=== PATIENT | female | born 1950 | race Caucasian/White ===

== ENCOUNTER 2021-12-21 16:59 | Inpatient (IN) | payer MEDICARE, OTHER ==
[~2021-12-21] VITALS: Ht 162.6 cm; Wt 74.4 kg
[2021-12-21] MEDS: HEPARIN SODIUM, PORCINE 5000 UNITS/1 ML VIAL SQ SCH (01:33)
[2021-12-21] MEDS ORDERED: LISI20TA30 PO (17:39)
[2021-12-21] MEDS ORDERED: ATOR80TA PO (17:39)
[2021-12-21] MEDS ORDERED: ASPI-1169 PO (17:39)
[2021-12-21] MEDS ORDERED: DIVA-78 PO ×2 (17:39)
[2021-12-21] MEDS ORDERED: EZET10TA15 PO (17:39)
[2021-12-21] MEDS ORDERED: DILT-4 PO (17:39)
[2021-12-21] MEDS ORDERED: QUET50TA PO (17:39)
[2021-12-21] MEDS ORDERED: ERGO500040 PO (17:39)
--- NOTE | 2021-12-21 17:43 | NUR ---
COVID SWAB DONE AND SENT TO LAB
[2021-12-21 17:45] LABS: BASOPHILS % (AUTO) 0.2 % (0.0-2.0); HEMATOCRIT 44 % (33-45); HEMOGLOBIN 14.4 g/dL (11.5-14.8); LYMPHOCYTES # (AUTO) 0.9 K/uL (0.8-4.8); LYMPHOCYTES % (AUTO) 5.3 % (20.0-44.0); MEAN CORPUSCULAR HGB CONC 33 g/dl (31.0-36.0); MEAN CORPUSCULAR VOLUME 96 fL (82-100); MONOCYTES # (AUTO) 0.5 K/uL (0.1-1.30); NEUTROPHILS # (AUTO) 16.3 K/uL (1.8-8.9); NEUTROPHILS % (AUTO) 91.5 % (43.0-81.0); PLATELET COUNT (AUTO) 302 K/uL (150-450); RED BLOOD CELL COUNT(AUTO) 4.59 MIL/uL (4.0-5.2); WHITE BLOOD COUNT (AUTO) 17.8 K/uL (4.3-11.0)
[2021-12-21 18:04] LABS: CALCIUM, SERUM 9.7 mg/dL (8.5-10.1); CARBON DIOXIDE 19 mmol/L (21-32); GLUCOSE 280 mg/dL (74-106); POTASSIUM 5.3 mmol/L (3.5-5.1); SODIUM SERUM 131 mmol/L (136-145)
[2021-12-21 18:06] LABS: CHLORIDE 77 mmol/L (98-107); CREATININE 16.7 mg/dL (0.6-1.3); UREA NITROGEN, BLOOD 129 mg/dL (7-18)
[2021-12-21 18:11] LABS: ALANINE AMINOTRANSFERASE 22 U/L (12-78); ALBUMIN 4.6 g/dL (3.4-5.0); ALCOHOL, BLOOD < 3 mg/dL (0-0); ALKALINE PHOSPHATASE 85 U/L (46-116); ASPARTATE AMINOTRANSFERASE 28 U/L (15-37); BILIRUBIN,DIRECT 0.3 mg/dL (0.0-0.2); TOTAL PROTEIN, SERUM 10.2 g/dL (6.4-8.2)
--- NOTE | 2021-12-21 19:09 | NUR ---
IN AND OUT F/C INSERTED, NO URINE OUTPUT. ALSO DR DE GUZMAN MADE AWARE OF BUN/ CREA RESULT.
[2021-12-21] MEDS ORDERED: IV NS 0.9% 1,000 ML BAG IV ONE ×2 (19:30→21:00)
[2021-12-21] MEDS ORDERED: CEFTRIAXONE 1GM BAG (ER ONLY) 50 ML IV ONE ×2 (19:30)
--- NOTE | 2021-12-21 19:40 | NUR ---
RIVAS COLLECTED AND SENT TO LAB
--- NOTE | 2021-12-21 21:22 | NUR ---
IN AND OUT CATHETER INSERTED WITH NO URINE OUTPUT.
--- NOTE | 2021-12-21 22:47 | NUR ---
GEOFFREY HENDRICKSON, CALLED TO PAGE PROBATE JUDGE COPPER PLATER FOR CONSULT. INSERT INDWELLING CATH, SHE IS AWARE THAT THE PATIENT HAS NO URINE OUTPUT.
--- NOTE | 2021-12-21 22:50 | NUR ---
DECLAN INDUSTRIAL MECHANIC PAGED FOR CONSULT. WILL CALL BACK
[2021-12-22] VITALS (64 sets, daily range): BP systolic 46–144; BP diastolic 30–89
[2021-12-22] MEDS ORDERED: HEPARIN SODIUM, PORCINE 5000 UNITS/1 ML VIAL ONE (01:28)
--- NOTE | 2021-12-22 01:35 | NUR ---
Note dayami in ED - 12/22/21 at 0141 by KDABBAGABRAHAMA PT NOTED WITH ASSYMTOMATIC HTPOTENSION. GEOFFREY BURLESON BUS REPAIR SUPERVISOR NOTIFIED AND ORDERS RECIEVED.
--- NOTE | 2021-12-22 01:35 | NUR ---
PT NOTED WITH ASYMTOMATIC HTPOTENSION. GEOFFREY BURLESON RAILROAD CAR PAINTER NOTIFIED AND ORDERS RECIEVED.
--- NOTE | 2021-12-22 01:46 | NUR ---
phleb at bedside for blood draw
[2021-12-22] MEDS ORDERED: IV NS 0.9% 1,000 ML IV PRN (02:00)
[2021-12-22] MEDS ORDERED: IV NS 0.9% 1,000 ML IV ONE ×3 (02:00→13:00)
[2021-12-22] MEDS ORDERED: ONDANSETRON HCL/PF 4 MG/2 ML VIAL IVP PRN (02:00)
--- NOTE | 2021-12-22 02:10 | NUR ---
ROOM 255
--- NOTE | 2021-12-22 02:27 | NUR ---
REPORT GIVEN TO MELVA
--- NOTE | 2021-12-22 02:52 | NUR ---
PT TRANSPORTED TO ROOM 255 ON CARDIAC PER ACLS
[2021-12-22 03:30] LABS: CARBON DIOXIDE 15 mmol/L (21-32); CHLORIDE 88 mmol/L (98-107); GLUCOSE 148 mg/dL (74-106); POTASSIUM 4.9 mmol/L (3.5-5.1); SODIUM SERUM 137 mmol/L (136-145)
[2021-12-22 03:46] LABS: UREA NITROGEN, BLOOD 128 mg/dL (7-18)
[2021-12-22 03:47] LABS: CREATININE 15.6 mg/dL (0.6-1.3)
--- NOTE | 2021-12-22 07:15 | NUR ---
CONVEX GRINDER OPERATOR NOTE RECEIVED PATIENT IN BED RESTING ALERT ORIENTED X2 VERNALLY RESPONSIVE ON 10L OXYGEN MASK O2:90% IV SITE IS ON LEFT HAND AND RIGHT FOREARM INTACT PATENT ON IV HYDRATION NS 150CC/HR,VIGIL CATH IN PLACE NO URINE NOTED,SAFETY MEASURE IMPLEMENT BED IN LOW POSITION AND LOCKED,HEAD OF THE BED ELEVATED,CALL LIGHT WITHIN REACH CONTINUE TO MONITOR.
--- NOTE | 2021-12-22 08:35 | NUR ---
WOUND CARE CONSULT: PT PRESENTS WITH DISCOLORATION TO RT HIP AND LEFT BUTTOCK WELL EXTREMELY LONG CURLING TOENAILS AND DISCOLORATION OF FEET WITH CALLUSES, ALL PRESENT ON ADMISSION. DR GAINES CALLED FOR DPM CONSULT. RECOMMENDATIONS MADE FOR SKIN PROTECTION. DISCUSSED WITH NURSING STAFF. PT IS ON SHIN ISOFLEX LOW AIRLOSS BED. IN AGREEMENT WITH PLAN OF CARE. Addendum: 12/22/21 at 0840 by FEROZ ROBLES WNDNU PT IS UNCOOPERATIVE AT TIMES.
[2021-12-22] MEDS: EZETIMIBE 10 MG TABLET PO SCH (08:57)
[2021-12-22] MEDS: ASPIRIN 81 MG TAB.CHEW PO SCH (08:57)
[2021-12-22] MEDS: PANTOPRAZOLE 40 MG VIAL IV SCH (08:57)
[2021-12-22] MEDS: HEPARIN SODIUM, PORCINE 5000 UNITS/1 ML VIAL SQ SCH ×2 (08:59→21:13)
[2021-12-22] MEDS: DIVALPROEX SODIUM 500 MG TABLET.DR PO SCH ×3 (09:00→18:57)
[2021-12-22] MEDS: DILTIAZEM HCL CD 300 MG PO SCH (09:00)
[2021-12-22] MEDS: QUETIAPINE FUMARATE 25 MG TABLET PO SCH ×3 (09:00→17:00)
[2021-12-22] MEDS ORDERED: Z GUARD REMEDY 4 OZ OINT TP PRN (09:00)
[2021-12-22] MEDS ORDERED: LISINOPRIL (20MG) 20 MG TABLET PO SCH (09:00)
[2021-12-22] MEDS: NOREPINEPHRINE 32 MG in IV NS 0.9% 218 ML IV PRN (10:19)
--- NOTE | 2021-12-22 14:30 | NUR ---
RN NOTE DR BONILLA ORDERED DIALYSIS,CALLED RESPONSIBLE LIBERTARIAN BROTHER MICHAEL STRICKLAND GOT CONSENT FOR HEMODIALYSIS AND INSERTION OF DIALYSIS ACCESS,CONTINUE TO MONITOR.
--- NOTE | 2021-12-22 15:15 | NUR ---
RN NOTE REPORT GIVEN TO SCOTT DEL VALLE FOR CONTINUATION OF CARE
[2021-12-22 16:44] LABS: CREATININE 11.9 mg/dL (0.6-1.3)
[2021-12-22] MEDS: ALBUMIN 25% 25 GM in PREMIX 1 EA IV PRN (16:48)
--- NOTE | 2021-12-22 17:37 | NUR ---
SEROQUEL HELD DUE TO PATIENT UNDERGOING HEMODIALYSIS
--- NOTE | 2021-12-22 17:38 | NUR ---
NON ADMIN DEPAKOTE. DUPLICATE ORDER
--- NOTE | 2021-12-22 18:48 | NUR ---
RN CLOSING NOTES PATIENT REMAINS IN BED ON NASAL CANULA 5 LITERS WITH OXYGEN SATURATION IN THE LOW 90S. ALERT AND ORIENTED TIMES 3. VIGIL CATHETER DRAINING DARK URINE. SKIN ALTERATIONS NOTED IN CHART. IV ACCESS ON LEFT HAND 22 GAUGE, RIGHT ANTECUBITAL 20 GAUGE, RIGHT UPPER ARM MIDLINE 18 GAUGE AND RIGHT FEMORAL ACCESS FOR HEMODIALYSIS. MONA RUNNING LEVOPHED AND NORMAL SALINE AT 75 MLS/HR. SAFETY MEASURES IMPLEMENTED, CALL LIGHT WITHIN REACH, BED IN LOWEST LOCKED POSITION, SIDE RAILS UP TIMES 2. WILL ENDORSE TO NIGHTSHIFT RN FOR CONTINUATION OF CARE.
--- NOTE | 2021-12-22 20:00 | NUR ---
Received patient a/ox3.DX:ESTELA S/P HD 1L out.Patient follows simple commands.Able to verbalized needs. SR per monitor.With Levophed gtt infusing for BP support and will titrate accordingly.Respiration easy and unlabored with 5L NC.Saturation 94%-95%.Turned and repositioned.Safety and comfort implemented. Call light at bedside.
[2021-12-22] MEDS: CEFTRIAXONE 1 G in IV D5W 50 ML IV SCH (20:19)
[2021-12-22] MEDS: IV NS 0.9% 1,000 ML IV PRN (20:21)
[2021-12-22] MEDS: ATORVASTATIN 40 MG TABLET PO SCH (21:12)
[2021-12-22] MEDS: ACETAMINOPHEN 325 MG TABLET PO PRN (22:25)
[2021-12-23] VITALS (93 sets, daily range): BP systolic 62–141; BP diastolic 21–83
--- NOTE | 2021-12-23 | NUR ---
Patient moaning complaints of back pain.Pain medication administered with relief.Turned and repositioned.
[2021-12-23] MEDS: IV NS 0.9% 1,000 ML IV PRN ×2 (01:34→12:47)
[2021-12-23 04:44] LABS: BASOPHILS % (AUTO) 0.1 % (0.0-2.0); HEMATOCRIT 33 % (33-45); HEMOGLOBIN 10.6 g/dL (11.5-14.8); LYMPHOCYTES # (AUTO) 1.7 K/uL (0.8-4.8); LYMPHOCYTES % (AUTO) 12.4 % (20.0-44.0); MEAN CORPUSCULAR HGB CONC 33 g/dl (31.0-36.0); MEAN CORPUSCULAR VOLUME 98 fL (82-100); MONOCYTES % (AUTO) 7.3 % (2.0-12.0); NEUTROPHILS # (AUTO) 11.2 K/uL (1.8-8.9); NEUTROPHILS % (AUTO) 80.2 % (43.0-81.0); PLATELET COUNT (AUTO) 189 K/uL (150-450); RED BLOOD CELL COUNT(AUTO) 3.32 MIL/uL (4.0-5.2)
[2021-12-23 05:01] LABS: CARBON DIOXIDE 18 mmol/L (21-32); CHLORIDE 98 mmol/L (98-107); GLUCOSE 126 mg/dL (74-106); MAGNESIUM 1.8 mg/dL (1.8-2.4); PHOSPHORUS 6.4 mg/dL (2.5-4.9); POTASSIUM 3.9 mmol/L (3.5-5.1); SODIUM SERUM 135 mmol/L (136-145); UREA NITROGEN, BLOOD 76 mg/dL (7-18)
[2021-12-23 05:02] LABS: CREATININE 8.1 mg/dL (0.6-1.3)
[2021-12-23] MEDS: NOREPINEPHRINE 32 MG in IV NS 0.9% 218 ML IV PRN (05:55)
--- NOTE | 2021-12-23 06:25 | NUR ---
Patient resting.VSS remains stable.SR.Levophed gtt infusing titrated accordingly.AM care done. Safety precaution maintained.Call light at bedside.No acute distress noted.
--- NOTE | 2021-12-23 07:33 | NUR ---
ICU/RN PT RECEIVED IN BED, RESTING, AWAKES EASILY, A&OX3. PT ON 5L O2 NC WITH NO SIGNS OF LABORED BREATHING AT THIS TIME SAT 94% ON BEDSIDE MONITOR. SINUS RHYTHM ON MONITOR. VIGIL CATH IN PLACE. LEFT HAND 22G, RIGHT AC 20G AND RIGHT UA MIDLINE 18G IN PLACE RUNNING NS AT 75CC/HR AND LEVOPHED AT 0.4MCG/KG/MIN, BP 99/70. BED LOCKED AND IN LOWEST POSITION, CALL LIGHT WITHIN REACH, 3 SIDE RAILS UP.
[2021-12-23] MEDS: QUETIAPINE FUMARATE 25 MG TABLET PO SCH ×4 (08:05→17:00)
[2021-12-23] MEDS: ASPIRIN 81 MG TAB.CHEW PO SCH ×2 (08:05→08:59)
[2021-12-23] MEDS: DIVALPROEX SODIUM 250 MG TABLET.DR PO SCH ×2 (08:05→09:00)
[2021-12-23] MEDS: EZETIMIBE 10 MG TABLET PO SCH ×2 (08:05→09:00)
[2021-12-23] MEDS: PANTOPRAZOLE 40 MG VIAL IV SCH ×2 (08:05→08:59)
[2021-12-23] MEDS: HEPARIN SODIUM, PORCINE 5000 UNITS/1 ML VIAL SQ SCH ×3 (08:06→21:02)
[2021-12-23] MEDS: DILTIAZEM HCL CD 300 MG PO SCH (08:59)
--- NOTE | 2021-12-23 09:00 | NUR ---
ICU/RN PT REFUSED ALL MEDICATION THIS MORNING. PT EDUCATED ON THE IMPORTANCE OF EACH MEDICATION, PT VERBALIZES UNDERSTANDING, STILL REFUSES.
--- NOTE | 2021-12-23 09:30 | NUR ---
ICU/RN PT REFUSED TO BE TURNED AND REPOSITIONED. PT EDUCATED ON THE IMPORTANCE TO CHANGE POSITION. PT VERBALIZES UNDERSTANDING, CONTINUES TO REFUSE.
[2021-12-23] MEDS: ALBUMIN 25% 25 GM in PREMIX 1 EA IV PRN (10:46)
--- NOTE | 2021-12-23 12:12 | NUR ---
ICU/RN PT CONTINUES TO REFUSE BEING TURNED AND REPOSITIONED.
--- NOTE | 2021-12-23 12:19 | NUR ---
ICU/RN PT REFUSING SEROQUEL.
--- NOTE | 2021-12-23 12:19 | NUR ---
ICU/RN HD COMPLETED, PT TOLERATED WELL, 1,000ML REMOVED.
[2021-12-23] MEDS: DIVALPROEX SODIUM 500 MG TABLET.DR PO SCH ×2 (17:07→17:08)
[2021-12-23] MEDS: CLOTRIMAZOLE 1% 15 GM TUBE TP SCH (17:07)
--- NOTE | 2021-12-23 17:08 | NUR ---
ICU/RN PT CONTINUES TO REFUSE PO MEDICATION. PT EDUCATED, STATES THE MEDICATION "DOESN'T MAKE ME FEEL GOOD". PT AGREES ON IVF AND LEVOPHED DRIP AT THIS TIME. PT REFUSES BED LINEN CHANGES STATING IT HURTS HER BACK TO MOVE. PT OFFERED PAIN MEDICATION, PT REFUSED.
--- NOTE | 2021-12-23 20:00 | NUR ---
Received patient awake in no acute distress.A/OX3.Breathing even and unlabored with O2 5LNC.SR 60'S-70'S.Levophed gtt infusing for BP support.Patient denies pain or any discomfort.Turned and repositioned.Call light at bedside.FC to gravity.
[2021-12-23] MEDS: CEFTRIAXONE 1 G in IV D5W 50 ML IV SCH (20:09)
[2021-12-23] MEDS: ATORVASTATIN 40 MG TABLET PO SCH (21:02)
[2021-12-24] VITALS (102 sets, daily range): BP systolic 57–134; BP diastolic 21–84
[2021-12-24] MEDS: IV NS 0.9% 1,000 ML IV PRN ×2 (03:33→15:38)
[2021-12-24] MEDS: NOREPINEPHRINE 32 MG in IV NS 0.9% 218 ML IV PRN (03:37)
--- NOTE | 2021-12-24 06:25 | NUR ---
Patient resting .VSS.Levophed gtt titrated down to 0.2 mcg.Patient refused Lab draw for this morning.She is fighting.AM care done and complete linens changed.Turned and repositioned.
--- NOTE | 2021-12-24 07:48 | NUR ---
ICU/RN PT REFUSED AM LAB ON PROJECT ACCOUNT MANAGER. PT TALKED WITH BROTHER MICHAEL. PT NOW AGREES TO HAVE LAB DRAWN. LAB NOTIFIED.
[2021-12-24] MEDS: QUETIAPINE FUMARATE 25 MG TABLET PO SCH ×3 (08:00→16:32)
[2021-12-24] MEDS: CLOTRIMAZOLE 1% 15 GM TUBE TP SCH ×2 (08:15→16:32)
[2021-12-24] MEDS: PANTOPRAZOLE 40 MG TABLET.DR PO SCH (08:33)
[2021-12-24] MEDS: ASPIRIN 81 MG TAB.CHEW PO SCH (08:33)
[2021-12-24] MEDS: DIVALPROEX SODIUM 250 MG TABLET.DR PO SCH (08:33)
[2021-12-24] MEDS: HEPARIN SODIUM, PORCINE 5000 UNITS/1 ML VIAL SQ SCH ×2 (08:33→21:35)
[2021-12-24] MEDS: DILTIAZEM HCL CD 300 MG PO SCH (08:33)
[2021-12-24] MEDS: EZETIMIBE 10 MG TABLET PO SCH (08:33)
--- NOTE | 2021-12-24 08:33 | NUR ---
ICU/RN PT AGREED TO MORNING LAB. PT REFUSING ALL MORNING MEDICATION EXCEPT FOR SEROQUEL PO.
[2021-12-24 09:01] LABS: BASOPHILS % (AUTO) 0.1 % (0.0-2.0); EOSINOPHILS % (AUTO) 0.1 % (0.0-6.0); HEMATOCRIT 31 % (33-45); LYMPHOCYTES # (AUTO) 1.4 K/uL (0.8-4.8); LYMPHOCYTES % (AUTO) 8.6 % (20.0-44.0); MEAN CORPUSCULAR HGB CONC 32 g/dl (31.0-36.0); MEAN CORPUSCULAR VOLUME 98 fL (82-100); MONOCYTES # (AUTO) 1.3 K/uL (0.1-1.30); MONOCYTES % (AUTO) 7.5 % (2.0-12.0); NEUTROPHILS % (AUTO) 83.7 % (43.0-81.0); PLATELET COUNT (AUTO) 173 K/uL (150-450); RED BLOOD CELL COUNT(AUTO) 3.17 MIL/uL (4.0-5.2); WHITE BLOOD COUNT (AUTO) 16.8 K/uL (4.3-11.0)
[2021-12-24 09:26] LABS: CALCIUM, SERUM 6.8 mg/dL (8.5-10.1); CARBON DIOXIDE 21 mmol/L (21-32); CHLORIDE 104 mmol/L (98-107); CREATININE 6.2 mg/dL (0.6-1.3); GLUCOSE 151 mg/dL (74-106); MAGNESIUM 1.7 mg/dL (1.8-2.4); PHOSPHORUS 5.1 mg/dL (2.5-4.9); POTASSIUM 3.5 mmol/L (3.5-5.1); SODIUM SERUM 139 mmol/L (136-145); UREA NITROGEN, BLOOD 68 mg/dL (7-18)
--- NOTE | 2021-12-24 11:00 | NUR ---
ICU/RN PT AGREED TO BE MOVED ONCE IN AM. PT REFUSED TO BE TURNED AND REPOSITIONED AT THIS TIME.
[2021-12-24 11:02] LABS: LYMPHOCYTES % (MANUAL) 10 % (16-48); MONOCYTES % (MANUAL) 8 % (0-11.0); NEUTROPHILS % (MANUAL) 82 (42-76)
[2021-12-24] MEDS: DIVALPROEX SODIUM 500 MG TABLET.DR PO SCH ×2 (17:17)
--- NOTE | 2021-12-24 19:05 | NUR ---
RN OPENING NOTES RECEIVED PATIENT ON BED, A/0 X 2-3, VERBALLY RESPONSIVE. ON NASAL CANULA @ 5LPM SATING AT 94%. WITH MONA MID LINE, RAC #20 PERIPHERAL LINE, PATENT, INTACT, FLUSHED WITH NS. NO S/S OF INFILTRATION NOTED. WITH IVF RUNNING WITH NS @ 75 ML/HR. LEVOPHED @ 0.3 MCG/KG/MIN. RIGHT FEMORAL HD CATH. NO BLEEDING AT SITE. VIGIL CATHETER PATENT INTACT DRAINING CLEAR YELLOW URINE VIA GRAVITY. ALL SAFETY PRECAUTION PROVIDED, BED IN LOWEST POSITION, LOCKED. BED ALARM ARMED. CALL LIGHT WITH IN REACH. CONTINUE TO MONITOR.
[2021-12-24] MEDS: CEFTRIAXONE 1 G in IV D5W 50 ML IV SCH (20:05)
[2021-12-24] MEDS: ATORVASTATIN 40 MG TABLET PO SCH (21:34)
[2021-12-25] VITALS (97 sets, daily range): BP systolic 55–158; BP diastolic 32–101
[2021-12-25] MEDS: NOREPINEPHRINE 32 MG in IV NS 0.9% 218 ML IV PRN (03:09)
[2021-12-25 04:58] LABS: BASOPHILS % (AUTO) 0.1 % (0.0-2.0); EOSINOPHILS % (AUTO) 0.4 % (0.0-6.0); HEMATOCRIT 28 % (33-45); HEMOGLOBIN 9.2 g/dL (11.5-14.8); LYMPHOCYTES % (AUTO) 14.3 % (20.0-44.0); MEAN CORPUSCULAR HGB CONC 33 g/dl (31.0-36.0); MEAN CORPUSCULAR VOLUME 96 fL (82-100); MONOCYTES # (AUTO) 0.9 K/uL (0.1-1.30); MONOCYTES % (AUTO) 6.4 % (2.0-12.0); NEUTROPHILS # (AUTO) 10.8 K/uL (1.8-8.9); NEUTROPHILS % (AUTO) 78.8 % (43.0-81.0); PLATELET COUNT (AUTO) 171 K/uL (150-450); RED BLOOD CELL COUNT(AUTO) 2.92 MIL/uL (4.0-5.2); WHITE BLOOD COUNT (AUTO) 13.7 K/uL (4.3-11.0)
[2021-12-25 05:18] LABS: CALCIUM, SERUM 6.8 mg/dL (8.5-10.1); CARBON DIOXIDE 23 mmol/L (21-32); CHLORIDE 106 mmol/L (98-107); CREATININE 4.3 mg/dL (0.6-1.3); GLUCOSE 122 mg/dL (74-106); MAGNESIUM 1.4 mg/dL (1.8-2.4); PHOSPHORUS 3.3 mg/dL (2.5-4.9); SODIUM SERUM 140 mmol/L (136-145); UREA NITROGEN, BLOOD 45 mg/dL (7-18)
[2021-12-25] MEDS: IV NS 0.9% 1,000 ML IV PRN ×2 (05:39→18:43)
--- NOTE | 2021-12-25 07:10 | NUR ---
RN NOTES PATIENT AWAKE, RESTING ON BED, REMAIN STABLE THROUGH OUT THE SHIFT. RESPIRATORY EVEN AND UNLABORED, NO SOB NOTED. REMAIN AFEBRILE. WITH IVF RUNNING WITH NS @ 75 ML/HR. LEVOPHED @ 0.2 MCG/KG/MIN. RIGHT FEMORAL HD CATH. NO BLEEDING AT SITE. VIGIL CATHETER PATENT INTACT DRAINING CLEAR YELLOW URINE VIA GRAVITY. ALL DUE MEDS GIVEN. ALL SAFETY PRECAUTION PROVIDED, BED IN LOWEST POSITION, LOCKED. BED ALARM ARMED. CALL LIGHT WITH IN REACH. REPORT GIVEN TO MORNING SHIFT NURSE FOR CONTINUITY OF CARE..
--- NOTE | 2021-12-25 07:10 | NUR ---
BUSINESS SYSTEMS LEAD Bedside report taken from [facility] nurse Humberto DEL VALLE. pt asleep, easily arousable. AAo x2, follows simple commands. noncompliant. perrla. moves bue and ble 2/5. pt on 5 L n/c tolerating well. rylee lung sounds clear but diminished. pt NSR on monitor, bue and ble pulses present. pt has parson intact and draining small amount of mary urine. pt oliguric, HD pt. pt has multiple wounds noted, see MAR. all lines traced. all drips verified. safety measures in place. will continue to monitor.
--- NOTE | 2021-12-25 08:15 | NUR ---
FINANCE LECTURER Pt sitting up in bed feeding self breakfast tray. pt tolerating well. vitals stable. will continue to monitor.
[2021-12-25] MEDS: DILTIAZEM HCL CD 300 MG PO SCH (08:16)
[2021-12-25] MEDS: ASPIRIN 81 MG TAB.CHEW PO SCH (08:16)
[2021-12-25] MEDS: PANTOPRAZOLE 40 MG TABLET.DR PO SCH (08:18)
[2021-12-25] MEDS: EZETIMIBE 10 MG TABLET PO SCH (08:18)
[2021-12-25] MEDS: QUETIAPINE FUMARATE 25 MG TABLET PO SCH ×3 (08:18→17:34)
[2021-12-25] MEDS: HEPARIN SODIUM, PORCINE 5000 UNITS/1 ML VIAL SQ SCH ×2 (08:18→20:45)
[2021-12-25] MEDS: DIVALPROEX SODIUM 250 MG TABLET.DR PO SCH (08:19)
[2021-12-25] MEDS: CLOTRIMAZOLE 1% 15 GM TUBE TP SCH ×2 (08:20→17:34)
--- NOTE | 2021-12-25 10:28 | NUR ---
SUPERVISOR MELT HOUSE Dr Coronel made aware that pt k 3.0 and mg 1.4, md aware that pt has orders for HD today not known what time pt scheduled for HD. awaiting for md orders for electrolyte replacements.
--- NOTE | 2021-12-25 10:54 | NUR ---
COMMUNITY MANAGER per charge nurse Amanda DEL VALLE, Berna WOODS to place orders for mg replacement and k is to be replaced with HD . awaiting new orders.
[2021-12-25] MEDS: Magnesium 1GM/D5W 100ML PREMIX 100 ML IV SCH ×4 (11:18→14:19)
--- NOTE | 2021-12-25 15:50 | NUR ---
FUEL CELL TECHNICIAN Pt refused bath, pericare and linen change done. skin check done with Don DEL VALLE, no new wounds noted. pt tolerated well. vitals stable. will continue to monitor.
[2021-12-25] MEDS: DIVALPROEX SODIUM 500 MG TABLET.DR PO SCH ×2 (17:02→17:34)
--- NOTE | 2021-12-25 19:05 | NUR ---
N OPENING NOTES RECEIVED PATIENT ON BED, A/0 X 2-3, VERBALLY RESPONSIVE. ON NASAL CANULA @ 5LPM SATING AT 95%. WITH MONA MID LINE, RAC #20 PERIPHERAL LINE, PATENT, INTACT, FLUSHED WITH NS. NO S/S OF INFILTRATION NOTED. WITH IVF RUNNING WITH NS @ 75 ML/HR. LEVOPHED @ 0.2 MCG/KG/MIN. RIGHT FEMORAL HD CATH. NO BLEEDING AT SITE. VIGIL CATHETER PATENT INTACT DRAINING CLEAR YELLOW URINE VIA GRAVITY. ALL SAFETY PRECAUTION PROVIDED, BED IN LOWEST POSITION, LOCKED. BED ALARM ARMED. CALL LIGHT WITH IN REACH. CONTINUE TO MONITOR.
--- NOTE | 2021-12-25 19:05 | NUR ---
IP ARCHITECT Bedside report given to [facility] nurse Humberto DEL VALLE. pt asleep, easily arousable. all lines traced. all drips verified. pt clean and dry. vital stable. no signs of acute distress at this time. safety measures in place.
[2021-12-25] MEDS: CEFTRIAXONE 1 G in IV D5W 50 ML IV SCH (20:08)
[2021-12-25] MEDS: ATORVASTATIN 40 MG TABLET PO SCH (22:20)
[2021-12-26] VITALS (98 sets, daily range): BP systolic 70–145; BP diastolic 34–84
[2021-12-26 03:41] LABS: BASOPHILS % (AUTO) 0.1 % (0.0-2.0); EOSINOPHILS % (AUTO) 1.4 % (0.0-6.0); HEMATOCRIT 28 % (33-45); HEMOGLOBIN 9.1 g/dL (11.5-14.8); LYMPHOCYTES # (AUTO) 2.2 K/uL (0.8-4.8); LYMPHOCYTES % (AUTO) 17.5 % (20.0-44.0); MEAN CORPUSCULAR HGB CONC 32 g/dl (31.0-36.0); MEAN CORPUSCULAR VOLUME 97 fL (82-100); MONOCYTES # (AUTO) 1.1 K/uL (0.1-1.30); MONOCYTES % (AUTO) 8.7 % (2.0-12.0); NEUTROPHILS # (AUTO) 9.1 K/uL (1.8-8.9); NEUTROPHILS % (AUTO) 72.3 % (43.0-81.0); PLATELET COUNT (AUTO) 182 K/uL (150-450); WHITE BLOOD COUNT (AUTO) 12.6 K/uL (4.3-11.0)
[2021-12-26] MEDS: NOREPINEPHRINE 32 MG in IV NS 0.9% 218 ML IV PRN (03:51)
[2021-12-26 03:57] LABS: CALCIUM, SERUM 7.9 mg/dL (8.5-10.1); CARBON DIOXIDE 27 mmol/L (21-32); CHLORIDE 105 mmol/L (98-107); CREATININE 2.9 mg/dL (0.6-1.3); GLUCOSE 137 mg/dL (74-106); MAGNESIUM 2.2 mg/dL (1.8-2.4); PHOSPHORUS 2.7 mg/dL (2.5-4.9); POTASSIUM 3.3 mmol/L (3.5-5.1); SODIUM SERUM 140 mmol/L (136-145); UREA NITROGEN, BLOOD 31 mg/dL (7-18)
--- NOTE | 2021-12-26 08:00 | NUR ---
RN NOTES RECEIVED PATIENT IN THE BED ON O25LNC, NO ACUTE RESPIRATORY DISTRESS. PATIENT A/A/O X3, REFUSED PAIN, HR -98 SINUS RHYTHM. PATIENT WAS ASKING BREAKFAST. DUE MEDICATION ADMINISTERED, INFUSING LEVOPHED 0.1 MCG/KG/MIN ON MONA MIDLINE INTACT, HD CATH ON RIGHT FEMORAL INTACT. VIGIL DRAINING 20ML URINE OUTPUT. ASSIST PATIENT TURN AND REPOSTION. CALL LIGHT WITHIN TO REACH, WILL FOLLOW UP.
[2021-12-26] MEDS: ASPIRIN 81 MG TAB.CHEW PO SCH (08:54)
[2021-12-26] MEDS: PANTOPRAZOLE 40 MG TABLET.DR PO SCH (08:55)
[2021-12-26] MEDS: EZETIMIBE 10 MG TABLET PO SCH (08:55)
[2021-12-26] MEDS: QUETIAPINE FUMARATE 25 MG TABLET PO SCH ×3 (08:55→17:26)
[2021-12-26] MEDS: HEPARIN SODIUM, PORCINE 5000 UNITS/1 ML VIAL SQ SCH ×2 (08:58→21:25)
[2021-12-26] MEDS ORDERED: DIVALPROEX SODIUM 500 MG TABLET.DR PO SCH (09:00)
[2021-12-26] MEDS: CLOTRIMAZOLE 1% 15 GM TUBE TP SCH ×2 (09:02→17:24)
[2021-12-26] MEDS: DILTIAZEM HCL CD 300 MG PO SCH (09:05)
[2021-12-26] MEDS: ERGOCALCIFEROL (VITAMIN D 2) 50,000 UNIT CAPSULE PO SCH (09:06)
[2021-12-26] MEDS: DIVALPROEX SODIUM 250 MG TABLET.DR PO SCH (09:08)
--- NOTE | 2021-12-26 09:30 | NUR ---
rn notes patyient getting Hd at this time. patient stable, will follow up.
[2021-12-26] MEDS ORDERED: POTASSIUM CHLORIDE 20 MEQ TAB.PRT.SR PO SCH (10:00)
[2021-12-26] MEDS: IV NS 0.9% 1,000 ML IV PRN (11:26)
--- NOTE | 2021-12-26 12:30 | NUR ---
RN NOTES FINISHED HD AT THIS TIME OUTPUT WAS 1500ML. PATIENT STABLE , BP 130/59, P-107. PATIENT EATING LUNCH.
[2021-12-26] MEDS ORDERED: NEPRO VAN 237 ML CAN PO PRN (13:30)
--- NOTE | 2021-12-26 15:33 | NUR ---
rn notes collected ua/uc specimen at this time, but patyient refused blood work
[2021-12-26 16:38] LABS: BILIRUBIN,URINE SMALL (NEGATIVE); COLOR,URINE YELLOW (YELLOW); LEUKOCYTE ESTERASE ,URINE TRACE (NEGATIVE); NITRITE, URINE NEGATIVE (NEGATIVE); PROTEIN,URINE 100 mg/dl (NEGATIVE); UGLUCOSE NEGATIVE (NEGATIVE); UROBILINOGEN,URINE 0.2 EU/dL (0.2)
[2021-12-26 16:57] LABS: BACTERIA,URINE Many /HPF (None Seen); SQUAMOUS EPITHELIAL CELL,UR Few /HPF (None Seen); YEAST,URINE Many /HPF (None Seen)
[2021-12-26] MEDS: DIVALPROEX SODIUM 500 MG TABLET.DR PO SCH (17:26)
--- NOTE | 2021-12-26 18:30 | NUR ---
rn notes pm care done, due medication administered, patient still on levo 0.1mcg/kg/hr, tolerated dinner 20%, needs attended and anticipated, call light within to reach. urine output was 325 mg/dl. endorsed oncoming nurse ciro.
--- NOTE | 2021-12-26 19:05 | NUR ---
RN OPENING NOTES RECEIVED PATIENT ON BED, A/0 X 3, VERBALLY RESPONSIVE. ON NASAL CANULA @ 5LPM SATING AT 94%. WITH MONA MID LINE, RAC #20 PERIPHERAL LINE, PATENT, INTACT, FLUSHED WITH NS. NO S/S OF INFILTRATION NOTED. WITH IVF RUNNING WITH NS @ 75 ML/HR. LEVOPHED @ 0.2 MCG/KG/MIN. RIGHT FEMORAL HD CATH. NO BLEEDING AT SITE. VIGIL CATHETER PATENT INTACT DRAINING CLEAR YELLOW URINE VIA GRAVITY. REPOSITION EVERY 2 HRS. ALL SAFETY PRECAUTION PROVIDED, BED IN LOWEST POSITION, LOCKED. BED ALARM ARMED. CALL LIGHT WITH IN REACH. CONTINUE TO MONITOR.
[2021-12-26] MEDS: CEFTRIAXONE 1 G in IV D5W 50 ML IV SCH (20:07)
[2021-12-26] MEDS: ATORVASTATIN 40 MG TABLET PO SCH (21:25)
--- NOTE | 2021-12-26 22:50 | NUR ---
RN NOTES NOTED WITH BP- 70/60, PULSE 108, LEVOPHED TITRATE TO 0.3 MCG/KG/MIN.
--- NOTE | 2021-12-26 23:45 | NUR ---
RN NOTES NOTED WITH BP- 86/59, PULSE 70, LEVOPHED TITRATE TO 0.4 MCG/KG/MIN.
[2021-12-27] VITALS (96 sets, daily range): BP systolic 91–152; BP diastolic 37–97
[2021-12-27] MEDS: IV NS 0.9% 1,000 ML IV PRN ×2 (01:24→14:24)
[2021-12-27 04:45] LABS: BASOPHILS % (AUTO) 0.1 % (0.0-2.0); EOSINOPHILS % (AUTO) 1.8 % (0.0-6.0); HEMATOCRIT 26 % (33-45); HEMOGLOBIN 8.5 g/dL (11.5-14.8); LYMPHOCYTES % (AUTO) 23.4 % (20.0-44.0); MEAN CORPUSCULAR HGB CONC 32 g/dl (31.0-36.0); MEAN CORPUSCULAR VOLUME 98 fL (82-100); MONOCYTES # (AUTO) 1.1 K/uL (0.1-1.30); NEUTROPHILS # (AUTO) 8.4 K/uL (1.8-8.9); NEUTROPHILS % (AUTO) 65.7 % (43.0-81.0); PLATELET COUNT (AUTO) 187 K/uL (150-450); RED BLOOD CELL COUNT(AUTO) 2.67 MIL/uL (4.0-5.2); WHITE BLOOD COUNT (AUTO) 12.7 K/uL (4.3-11.0)
[2021-12-27 04:57] LABS: CALCIUM, SERUM 8.1 mg/dL (8.5-10.1); CARBON DIOXIDE 31 mmol/L (21-32); CHLORIDE 106 mmol/L (98-107); GLUCOSE 222 mg/dL (74-106); POTASSIUM 3.5 mmol/L (3.5-5.1); SODIUM SERUM 142 mmol/L (136-145); UREA NITROGEN, BLOOD 25 mg/dL (7-18)
[2021-12-27] MEDS: NOREPINEPHRINE 32 MG in IV NS 0.9% 218 ML IV PRN (06:23)
--- NOTE | 2021-12-27 07:18 | NUR ---
RN NOTES PATIENT SLEEPING ON BED, EASY TO AROUSE, REMAIN STABLE THROUGH OUT THE SHIFT. RESPIRATORY EVEN AND UNLABORED, NO SOB NOTED. REMAIN AFEBRILE. WITH IVF RUNNING WITH NS @ 75 ML/HR. LEVOPHED @ 0.4 MCG/KG/MIN. RIGHT FEMORAL HD CATH. NO BLEEDING AT SITE. VIGIL CATHETER PATENT INTACT DRAINING CLEAR YELLOW URINE VIA GRAVITY. ALL DUE MEDS GIVEN. REPOSITION Q2HRS. ALL SAFETY PRECAUTION PROVIDED, BED IN LOWEST POSITION, LOCKED. BED ALARM ARMED. CALL LIGHT WITH IN REACH. REPORT GIVEN TO MORNING SHIFT NURSE FOR CONTINUITY OF CARE..
[2021-12-27] MEDS: EZETIMIBE 10 MG TABLET PO SCH (08:01)
[2021-12-27] MEDS: QUETIAPINE FUMARATE 25 MG TABLET PO SCH ×3 (08:02→16:30)
[2021-12-27] MEDS: PANTOPRAZOLE 40 MG TABLET.DR PO SCH (08:02)
[2021-12-27] MEDS: DIVALPROEX SODIUM 250 MG TABLET.DR PO SCH (08:02)
[2021-12-27] MEDS: ASPIRIN 81 MG TAB.CHEW PO SCH (08:02)
[2021-12-27] MEDS: CLOTRIMAZOLE 1% 15 GM TUBE TP SCH ×2 (08:04→16:30)
[2021-12-27] MEDS: HEPARIN SODIUM, PORCINE 5000 UNITS/1 ML VIAL SQ SCH ×2 (08:06→21:00)
[2021-12-27] MEDS: DILTIAZEM HCL CD 300 MG PO SCH (08:41)
--- NOTE | 2021-12-27 10:33 | NUR ---
hd complete. no complications, 1000 ml removed.
[2021-12-27] MEDS: HYDROCORTISONE SOD SUCCINATE 100 MG/2 ML VIAL IV SCH ×3 (10:36→20:34)
[2021-12-27] MEDS: MIDODRINE HCL (5MG) 5 MG TABLET PO SCH ×2 (12:04→16:30)
[2021-12-27] MEDS: DIVALPROEX SODIUM 500 MG TABLET.DR PO SCH (17:40)
--- NOTE | 2021-12-27 19:56 | NUR ---
RN NOTE RECEIVED PT AWAKE AO X3. DENIES ANY PAIN OR SOB AT THIS TIME. ON O2 AT 5L VIA NC. NOT IN ANY DISTRESS. PT ON LEVO AT 0.2 MCG/KG/MIN AND NS AT 75ML/HR. SR TO ST ON TELE MONITOR, HR 80S TO 110S. VIGIL CATH IN PLACE. WILL CONTINUE TO MONITOR.
[2021-12-27] MEDS: CEFTRIAXONE 1 G in IV D5W 50 ML IV SCH (20:33)
[2021-12-27] MEDS: ATORVASTATIN 40 MG TABLET PO SCH (21:52)
--- NOTE | 2021-12-27 21:53 | NUR ---
RN NOTE PATIENT REFUSED HEPARIN INJECTION. EXPLAINED RISKS AND BENEFITS, VERBALIZES UNDERSTANDING, STILL REFUSED MED.
[2021-12-28] VITALS (93 sets, daily range): BP systolic 90–170; BP diastolic 31–115
[2021-12-28] MEDS: HYDROCORTISONE SOD SUCCINATE 100 MG/2 ML VIAL IV SCH ×3 (04:56→20:23)
[2021-12-28 05:13] LABS: BASOPHILS % (AUTO) 0.1 % (0.0-2.0); HEMATOCRIT 25 % (33-45); HEMOGLOBIN 7.8 g/dL (11.5-14.8); LYMPHOCYTES # (AUTO) 0.8 K/uL (0.8-4.8); LYMPHOCYTES % (AUTO) 6.4 % (20.0-44.0); MEAN CORPUSCULAR HGB CONC 32 g/dl (31.0-36.0); MEAN CORPUSCULAR VOLUME 99 fL (82-100); MONOCYTES # (AUTO) 0.3 K/uL (0.1-1.30); MONOCYTES % (AUTO) 2.3 % (2.0-12.0); NEUTROPHILS # (AUTO) 11.6 K/uL (1.8-8.9); NEUTROPHILS % (AUTO) 91.2 % (43.0-81.0); PLATELET COUNT (AUTO) 168 K/uL (150-450); RED BLOOD CELL COUNT(AUTO) 2.47 MIL/uL (4.0-5.2); WHITE BLOOD COUNT (AUTO) 12.7 K/uL (4.3-11.0)
[2021-12-28 05:37] LABS: CALCIUM, SERUM 8.2 mg/dL (8.5-10.1); CARBON DIOXIDE 24 mmol/L (21-32); CHLORIDE 112 mmol/L (98-107); CREATININE 1.5 mg/dL (0.6-1.3); GLUCOSE 176 mg/dL (74-106); POTASSIUM 4.5 mmol/L (3.5-5.1); SODIUM SERUM 143 mmol/L (136-145); UREA NITROGEN, BLOOD 21 mg/dL (7-18)
[2021-12-28] MEDS: IV NS 0.9% 1,000 ML IV PRN ×2 (06:02→20:19)
--- NOTE | 2021-12-28 07:10 | NUR ---
RN NOTE NO CHANGES IN LOC NOTED. REMAIN AFEBRILE. TOLERATES O2 AT 4L. NOT IN ANY DISTRESS. DENIES PAIN. CONTINUE ON LEVOPHED, TITRATED PER PROTOCOL, NOW AT 0.04MCG/KG/MIN. ENDORSED TO PAWAN FOR SHAUNA.
[2021-12-28] MEDS: NOREPINEPHRINE 32 MG in IV NS 0.9% 218 ML IV PRN (07:49)
[2021-12-28] MEDS: ASPIRIN 81 MG TAB.CHEW PO SCH (08:57)
[2021-12-28] MEDS: PANTOPRAZOLE 40 MG TABLET.DR PO SCH (08:58)
[2021-12-28] MEDS: DILTIAZEM HCL CD 300 MG PO SCH (08:58)
[2021-12-28] MEDS: QUETIAPINE FUMARATE 25 MG TABLET PO SCH ×3 (08:58→16:05)
[2021-12-28] MEDS: EZETIMIBE 10 MG TABLET PO SCH (08:58)
[2021-12-28] MEDS: MIDODRINE HCL (5MG) 5 MG TABLET PO SCH ×3 (08:59→16:05)
[2021-12-28] MEDS: DIVALPROEX SODIUM 250 MG TABLET.DR PO SCH (08:59)
[2021-12-28] MEDS: HEPARIN SODIUM, PORCINE 5000 UNITS/1 ML VIAL SQ SCH ×2 (09:00→21:46)
[2021-12-28] MEDS: CLOTRIMAZOLE 1% 15 GM TUBE TP SCH ×2 (09:00→16:05)
[2021-12-28] MEDS: DIVALPROEX SODIUM 500 MG TABLET.DR PO SCH (18:13)
--- NOTE | 2021-12-28 19:00 | NUR ---
RN CLOSING NOTE PT IS RESTING IN BED, A/O X 3-4. PT IS ON 4L NC SATING BETWEEN 95-98%. TELE READS SR. IV ACCESS NOTED AT RAC, MONA MIDLINE, AND R FEMORAL HD CATH. PT IS ON LEVO 0.04MCG/KG/MIN AND NS AT 75ML/HR. ALL SAFETY MEASURES IN PLACE, FALL PRECAUTIONS IN PLACE. WILL ENDORSE CARE TO PANCAKE PROFESSIONAL RN.
--- NOTE | 2021-12-28 20:17 | NUR ---
RN NOTE RECEIVED PT AWAKE AO X3. DENIES ANY PAIN OR SOB AT THIS TIME. ON O2 AT 4L VIA NC. NOT IN ANY DISTRESS. PT ON LEVO AT 0.04 MCG/KG/MIN AND NS AT 75ML/HR. SR TELE MONITOR, HR 92. AFEBRILE. VIGIL CATH IN PLACE. WILL CONTINUE TO MONITOR.
[2021-12-28] MEDS: CEFTRIAXONE 1 G in IV D5W 50 ML IV SCH (20:19)
[2021-12-28] MEDS: ATORVASTATIN 40 MG TABLET PO SCH (21:48)
[2021-12-29] VITALS (61 sets, daily range): BP systolic 99–154; BP diastolic 34–94
[2021-12-29 04:39] LABS: BASOPHILS % (AUTO) 0.1 % (0.0-2.0); HEMATOCRIT 24 % (33-45); HEMOGLOBIN 7.8 g/dL (11.5-14.8); LYMPHOCYTES # (AUTO) 0.8 K/uL (0.8-4.8); LYMPHOCYTES % (AUTO) 5.3 % (20.0-44.0); MEAN CORPUSCULAR HGB CONC 32 g/dl (31.0-36.0); MEAN CORPUSCULAR VOLUME 101 fL (82-100); MONOCYTES # (AUTO) 0.4 K/uL (0.1-1.30); MONOCYTES % (AUTO) 2.8 % (2.0-12.0); NEUTROPHILS # (AUTO) 13.2 K/uL (1.8-8.9); NEUTROPHILS % (AUTO) 91.8 % (43.0-81.0); PLATELET COUNT (AUTO) 174 K/uL (150-450); WHITE BLOOD COUNT (AUTO) 14.4 K/uL (4.3-11.0)
[2021-12-29 05:04] LABS: CARBON DIOXIDE 25 mmol/L (21-32); CHLORIDE 113 mmol/L (98-107); CREATININE 1.5 mg/dL (0.6-1.3); GLUCOSE 163 mg/dL (74-106); POTASSIUM 4.3 mmol/L (3.5-5.1); SODIUM SERUM 146 mmol/L (136-145); UREA NITROGEN, BLOOD 25 mg/dL (7-18)
[2021-12-29] MEDS: HYDROCORTISONE SOD SUCCINATE 100 MG/2 ML VIAL IV SCH ×3 (05:57→21:51)
--- NOTE | 2021-12-29 07:10 | NUR ---
DRYWALL APPLICATION SUPERVISOR OPENING NOTE: RECEIVED PT. IN BED, AWAKE AOX2-3. DENIES ANY PAIN AT THIS TIME. ON O2 AT 4L VIA NC. NO S/S OF RESPIRATORY DISTRESS. SHORTHAND REPORTER READS NSR AT 81 BPM. PT. ON F/C WITH YELLOW CLOUDY URINE DRAINING VIA GRAVITY. PT. HAS SKIN ISSUES, WILL MONITOR AND DO WOUND TREATMENT ORDERED. IV ACCESS ON R AC #20G, PATENT AND SALINE LOCKED; MONA MIDLINE WITH NS RUNNING AT 75 ML/HR; BOTH IV SITE DRESSINGS C/D/I WITH NO S/S OF INFILTRATION. SHE ALSO HAS R FEMORAL HD CATH, DRESSING C/D/I WITH NO S/S OF INFILTRATION. SAFETY MEASURES IN PLACE: BED IN LOWEST AND LOCKED POSITION, HOB ELEVATED AT 30 DEGREES, BED ALARM ON, SIDE RAILS UP X3, CALL LIGHT WITHIN EASY REACH. WILL ENCOURAGE FREQUENT REPOSITIONING IN BED AT LEAST Q2H. WILL CONTINUE TO MONITOR PT. FOR ANY CHANGES.
[2021-12-29] MEDS: ASPIRIN 81 MG TAB.CHEW PO SCH (08:08)
[2021-12-29] MEDS: EZETIMIBE 10 MG TABLET PO SCH (08:08)
[2021-12-29] MEDS: CLOTRIMAZOLE 1% 15 GM TUBE TP SCH ×2 (08:08→17:11)
[2021-12-29] MEDS: DIVALPROEX SODIUM 250 MG TABLET.DR PO SCH (08:09)
[2021-12-29] MEDS: PANTOPRAZOLE 40 MG TABLET.DR PO SCH (08:09)
[2021-12-29] MEDS: QUETIAPINE FUMARATE 25 MG TABLET PO SCH ×3 (08:10→17:11)
[2021-12-29] MEDS: MIDODRINE HCL (5MG) 5 MG TABLET PO SCH ×3 (08:10→17:12)
[2021-12-29] MEDS: DILTIAZEM HCL CD 300 MG PO SCH (08:14)
--- NOTE | 2021-12-29 12:55 | NUR ---
COLLEGE RECRUITER NOTE: PT. STARTED ON HD AT 1147. STILL ON HD NOW, WILL ADMIN MIDODRINE 5MG SCHEDULED AT 1300 PER HD NURSE RECOMMENDATION. WILL HOLD OTHER SCHEDULED MEDS TILL AFTER HD. WILL CONTINUE TO MONITOR PT.'S HEMODYNAMIC STATUS.
--- NOTE | 2021-12-29 14:50 | NUR ---
COMPUTER SYSTEMS HARDWARE ANALYST NOTE: HD ENDED AT AROUND 1415. OUTPUT OF 1,000 ML. PT. TOLERATED WELL. VS STABLE. NO COMPLAINTS OF PAIN/NAUSEA/DISCOMFORT AT THIS TIME. OTHER SCHEDULED MEDS AT 1300 NOW GIVEN. WILL CONTINUE TO MONITOR PT.'S HEMODYNAMIC STATUS.
[2021-12-29] MEDS ORDERED: EPOETIN ALFA (4000 UNIT) 4,000 UNIT/ML VIAL SQ SCH (16:00)
[2021-12-29] MEDS: DIVALPROEX SODIUM 500 MG TABLET.DR PO SCH (17:12)
--- NOTE | 2021-12-29 18:50 | NUR ---
TRANSFER FROM ICU PATIENT 71 YEAR OLD FEMALE A/O X2-3 TRANSFERRED FROM ICU. RECEIVED REPORT FROM HILDA. PATIENT DX SEVERE ACUTE KIDNEY INJURY AND HYPOTENSION. SR 82. NC 4L. DIET CCHO. WITH VIGIL. VITAL SIGNS AT THE TIME OF ARRIVAL BP:111/55 HR: 78 RR: 18. IV ON RAC 20 G. MONA MIDLINE 18 G. RFHD CATH. SALINE LOCKED. ALL IV PORTS FLUSHING AND PATENT. ALL SAFETY MEASURES IN PLACE. WILL ENDORSE THE PATIENT TO THE COMMERCIAL TRAILER TRUCK DRIVER NURSE TO SHAUNA.
--- NOTE | 2021-12-29 18:50 | NUR ---
MFTVOCAL MUSIC INSTRUCTOR NOTE: TRANSFERRED PT. TO TELE UNIT ROOM 106 VIA HOSPITAL BED AT 1845. REPORT GIVEN TO HELP DESK COORDINATORELIGIO HAWLEY. PT. IS AWAKE AOX2-3. DENIES ANY PAIN AT THIS TIME. ON O2 AT 4L VIA NC. NO S/S OF RESPIRATORY DISTRESS. DEAN OF STUDENTS READS NSR AT 82 BPM. PT. ON F/C WITH YELLOW CLOUDY URINE WITH TOTAL OUTPUT OF 305ML THIS SHIFT. IV ACCESS ON R AC #20G, PATENT AND SALINE LOCKED; MONA MIDLINE PATENT AND SALINE LOCKED; BOTH IV SITE DRESSINGS C/D/I WITH NO S/S OF INFILTRATION. SHE ALSO HAS R FEMORAL HD CATH, DRESSING C/D/I WITH NO S/S OF INFILTRATION. HD DONE THIS PM WITH OUPUT OF 1,000 ML. SAFETY MEASURES MAINTAINED: BED IN LOWEST AND LOCKED POSITION, HOB ELEVATED AT 30 DEGREES, BED ALARM ON, SIDE RAILS UP X3, CALL LIGHT WITHIN EASY REACH. TURNED AND REPOSITIONED AT LEAST Q2H. ENDORSED CONTINUITY OF CARE TO HELP DESK COORDINATORELIGIO HAWLEY AT BEDSIDE.
--- NOTE | 2021-12-29 18:51 | NUR ---
WIC SITE COORDINATORMANAGER ADOBE NOTE CONTINUTATION: HANDED ALL PT. MEDS, CHART AND BELONGINGS AT BEDSIDE TO MANAGER WOUNDELIGIO HAWLEY.
--- NOTE | 2021-12-29 19:30 | NUR ---
RN NOTE Received patient in bed, awake, alert, and verbally responsive. Breahting even and unlabored. on 6L/min via nasal cannula with o2 saturation of 93 percent. Denies sob/chest pain. Skin is warm and dry. right upper arm midline intact. No ivf infusing. indwelling parson catheter intact. Assisted patient with turning and repositioning. bed low, in locked position. will continue to monitor.
[2021-12-29] MEDS: CEFTRIAXONE 1 G in IV D5W 50 ML IV SCH (20:03)
[2021-12-29] MEDS: ATORVASTATIN 40 MG TABLET PO SCH (21:51)
[2021-12-30] VITALS: BP 107/61
[2021-12-30 05:00] VITALS: BP 112/67
[2021-12-30] MEDS: HYDROCORTISONE SOD SUCCINATE 100 MG/2 ML VIAL IV SCH ×3 (05:40→17:27)
[2021-12-30 08:51] VITALS: BP 117/67
[2021-12-30] MEDS: PANTOPRAZOLE 40 MG TABLET.DR PO SCH (08:59)
[2021-12-30] MEDS: QUETIAPINE FUMARATE 25 MG TABLET PO SCH ×3 (09:00→17:27)
[2021-12-30] MEDS: EZETIMIBE 10 MG TABLET PO SCH (09:00)
[2021-12-30] MEDS: FLUCONAZOLE (100 MG) 100 MG TABLET PO SCH (09:00)
[2021-12-30] MEDS: DIVALPROEX SODIUM 250 MG TABLET.DR PO SCH (09:00)
[2021-12-30] MEDS: ASPIRIN 81 MG TAB.CHEW PO SCH (09:00)
[2021-12-30] MEDS: CLOTRIMAZOLE 1% 15 GM TUBE TP SCH ×2 (09:01→17:38)
[2021-12-30] MEDS: ACETAMINOPHEN 325 MG TABLET PO PRN (09:01)
[2021-12-30] MEDS: MIDODRINE HCL (5MG) 5 MG TABLET PO SCH ×3 (09:02→17:00)
[2021-12-30] MEDS: DILTIAZEM HCL CD 300 MG PO SCH (09:03)
[2021-12-30 12:00] VITALS: BP 119/71
--- NOTE | 2021-12-30 12:30 | NUR ---
RN NOTE RECEIVED FROM ELIGIO VENTURA AT 1230. RECEIVED PT AWAKE IN BED. PT IS A/O X3, ABLE TO MAKE NEEDS KNOWN. ON O2 AT 3L/MIN VIA NASAL CANNULA, TOLERATING WELL. NO SOB NOTED. NOT IN ANY SIGN OF RESPIRATORY DISTRESS. ON TELE MATERIAL HANDLER FLOORPERSON, WITH CURRENT READING OF SINUS RHYTHM, HR 83. NO C/O CARDIAC DISTRESS VOICED OUT AT THIS TIME. IV ACCESS IN MONA MIDLINE INTACT AND PATENT. RIGHT FEMORAL HD CATH INTACT. SAFETY MEASURES IN PLACE: BED IN LOWEST AND LOCKED POSITION, SIDE RAILS UPX2, BED ALARM ON, AND CALL LIGHT WITHIN REACH. WILL CONTINUE TO MONITOR PT.
--- NOTE | 2021-12-30 14:56 | NUR ---
RN NOTE LA REFUSED LAB WORKS DONE. EXPLAINED RISK AND BENEFITS X3 STILL STRONGLY REFUSED.
[2021-12-30 16:00] VITALS: BP 128/75
[2021-12-30] MEDS: DIVALPROEX SODIUM 500 MG TABLET.DR PO SCH (17:26)
--- NOTE | 2021-12-30 17:30 | NUR ---
RN NOTE PT REFUSED HER MEDICATION MIDODRINE SCHEDULED AT 1700. EXPLAINED RISK AND BENEFITS X3, STILL STRONGLY REFUSED. PT'S CURRENT BP IS 128/75.
--- NOTE | 2021-12-30 19:09 | NUR ---
MOTOR LODGE CLERK CLOSING NOTE PT ASLEEP IN BED, EASILY AROUSED. PT IS A/O X3, ABLE TO MAKE NEEDS KNOWN. ON O2 AT 3L/MIN VIA NASAL CANNULA, TOLERATING WELL. NO SOB NOTED. NOT IN ANY SIGN OF RESPIRATORY DISTRESS. ON TELE DIGITAL IMAGING TECHNICIAN, WITH CURRENT READING OF SINUS RHYTHM, HR _. NO C/O CARDIAC DISTRESS VOICED OUT AT THIS TIME. IV ACCESS IN MONA MIDLINE INTACT AND PATENT. RIGHT FEMORAL HD CATH INTACT. ALL NEEDS ATTENDED. KEPT CLEAN AND COMFORTABLE. SAFETY MEASURES IN PLACE: BED IN LOWEST AND LOCKED POSITION, SIDE RAILS UPX2, BED ALARM ON, AND CALL LIGHT WITHIN REACH. ENDORSED TO CONTINUOUS IMPROVEMENT BLACK BELT NURSE FOR SHAUNA.
[2021-12-30 20:00] VITALS: BP 138/61
[2021-12-30] MEDS: CEFTRIAXONE 1 G in IV D5W 50 ML IV SCH (20:00)
--- NOTE | 2021-12-30 20:09 | NUR ---
TOOTH CUTTER CLUTCH OPENING NOTE PT RECEIVED IN BED, AWAKE, A&O X3, CALM, COOPERATIVE. ON 3L NC WITH CURRENT O2SAT OF 93%; PT DENIES ANY SOB; NO OTHER S/S OF RESP DISTRESS, NO COUGH, NON-LABORED AND EQUAL BREATHING. PT ATTACHED TO EXTERNAL MONITOR, SR WITH WITH HR OF 71. VIGIL INTACT AND PATENT, NO SIGNS OF LEAKING, DRAINING CLEAR AND YELLOW URINE. MONA MIDLINE INTACT AND PATENT, FLUSHES EASILY WITH NO RESISTANCE, NO MEDS/FLUIDS INFUSING THROUGH IT. BED IN LOWEST POSITION, CALL LIGHT WITHIN REACH, SIDE RAILS UP X3. BED IN LOWEST POSITION, CALL LIGHT WITHIN REACH, SIDE RAILS UP X3. WILL CONTINUE TO MONITOR THROUGHOUT THE NIGHT.
--- NOTE | 2021-12-30 20:19 | NUR ---
RN NOTE PT REFUSED CEFTRIAXONE SCHEDULED FOR 1999.
[2021-12-30] MEDS: ATORVASTATIN 40 MG TABLET PO SCH (22:00)
--- NOTE | 2021-12-30 22:16 | NUR ---
RN NOTE PT REFUSED ATORVASTATIN 80 MG SCHEDULED FOR 2200.
[2021-12-31] VITALS (7 sets, daily range): BP systolic 104–153; BP diastolic 58–88
--- NOTE | 2021-12-31 06:17 | NUR ---
RN NOTE PT REFUSED TO HAVE BLOOD DRAWN FROM MIDLINE AND FOR CHUTE OPERATOR TO EXTRACT BLOOD.
--- NOTE | 2021-12-31 06:45 | NUR ---
SERVICE OFFICER CLOSING NOTE PT REMAINS IN BED, AWAKE, A&O X3, CALM, COOPERATIVE. CONTINUES TO BE ON 3L NC BUT PT WOULD REMOVE NC ON OCCASION; O2SAT RANGED FROM 93%-96%; PT DENIES ANY SOB; NO OTHER S/S OF RESP DISTRESS, NO COUGH, NON-LABORED AND EQUAL BREATHING. PT ATTACHED TO EXTERNAL MONITOR, SR WITH WITH HR RANGING FROM 71-92. VIGIL INTACT AND PATENT, NO SIGNS OF LEAKING, DRAINING CLEAR AND YELLOW URINE. MONA MIDLINE AND RAC 20G INTACT AND PATENT, FLUSHES EASILY WITH NO RESISTANCE, NO MEDS/FLUIDS INFUSING THROUGH IT. BED IN LOWEST POSITION, CALL LIGHT WITHIN REACH, SIDE RAILS UP X3. BED IN LOWEST POSITION, CALL LIGHT WITHIN REACH, SIDE RAILS UP X3. WILL ENDORSE TO [facility] NURSE TO CONTINUE CARE. Addendum: 12/31/21 at 0655 by PRINCESS ROLANDO DEL VALLE PT NOTED TO HAVE PRODUCTIVE COUGH
--- NOTE | 2021-12-31 07:27 | NUR ---
FLOOR LAYER OPENING NOTES: RECEIVED PATIENT IN BED, AWAKE, ALERT, ORIENTED X 3. NO RESPIRATORY DISTRESS NOTED. ON OXYGEN @ 3L/MIN VIA N/C WITH 95% SATURATION. ON SR @ TELE MONITOR WITH HR OF 97. HAS IV ACCESS ON RIGHT UPPER MIDLINE AND RIGHT ANTECUBITAL. PATIENT REFUSED FOR THE NURSE TO FLUSH HER IV WITH NS. EXPLAINED TO HER THE IMPORTANCE TO CHECK FOR PATENCY BUT PATIENT STILL DECLINED. PATIENT HAS HD ACCESS ON RIGHT FEMORAL SIDE. VIGIL CATHETER INTACT, DRAINING WITH YELLOW URINE, NO HEMATURIA AND NO SEDIMENTATION NOTED. BED LOCKED AND IN LOWEST POSITION. CALL LIGHT WITHIN REACH. ALL SAFETY MEASURES IN PLACE. WILL CONTINUE TO MONITOR PATIENT THROUGHOUT SHIFT.
[2021-12-31] MEDS: DIVALPROEX SODIUM 250 MG TABLET.DR PO SCH (09:00)
[2021-12-31] MEDS: HYDROCORTISONE SOD SUCCINATE 100 MG/2 ML VIAL IV SCH ×3 (09:00→12:34)
[2021-12-31] MEDS: MIDODRINE HCL (5MG) 5 MG TABLET PO SCH ×3 (09:00→17:03)
[2021-12-31] MEDS: PANTOPRAZOLE 40 MG TABLET.DR PO SCH (09:43)
[2021-12-31] MEDS: FLUCONAZOLE (100 MG) 100 MG TABLET PO SCH (09:43)
[2021-12-31] MEDS: EZETIMIBE 10 MG TABLET PO SCH (09:43)
[2021-12-31] MEDS: QUETIAPINE FUMARATE 25 MG TABLET PO SCH ×3 (09:43→17:26)
[2021-12-31] MEDS: ASPIRIN 81 MG TAB.CHEW PO SCH (09:43)
[2021-12-31] MEDS: DILTIAZEM HCL CD 300 MG PO SCH (09:43)
[2021-12-31] MEDS: CLOTRIMAZOLE 1% 15 GM TUBE TP SCH ×2 (09:53→17:25)
--- NOTE | 2021-12-31 12:44 | NUR ---
DR JOHNSON INFORMED THAT PATIENT HAS REFUSED HER SOLUCORTEF IV DOSE IN THE MORNING AND AT 11:30 AM. NO FURTHER ORDERS FROM .
--- NOTE | 2021-12-31 14:55 | NUR ---
LEARNING AND DEVELOPMENT COORDINATOR CAME BY TO DRAW PATIENT'S LAB BUT PATIENT REFUSED. TRIED TO TALK TO THE PATIENT TO GET THE SAMPLE THROUGH HER MIDLINE AND EXPLAINED THE IMPORTANCE OF DRAWING HER BLOOD PER MD'S ORDER BUT PATIENT STILL DECLINED.
--- NOTE | 2021-12-31 16:48 | NUR ---
DR JOHNSON NOTIFIED OF PATIENT'S BP 125/80 AND SHE'S DUE FOR PROAMATINE 5 MG, WITH AN ORDER TO HOLD MED IF SBP GREATER THAN 120. ORDER NOTED AND CARRIED OUT.
[2021-12-31] MEDS: DIVALPROEX SODIUM 500 MG TABLET.DR PO SCH (17:26)
--- NOTE | 2021-12-31 18:15 | NUR ---
DR JOHNSON WAS ALSO NOTIFIED THAT THE PATIENT HAS BEEN REFUSING BLOOD DRAW AND SALINE FLUSH ON HER MIDLINE IV WITH NO FURTHER ORDERS AT THIS TIME.
--- NOTE | 2021-12-31 18:45 | NUR ---
RN CLOSING NOTES: PATINET IN BED, AWAKE, ALERT, ORINEDT X 3. NO RESPIRATORY DISTRESS NOTED. ON OXYGEN @ 3L/MIN VIA N/C WITH OXYGEN SATURATION OF 93%. HAS MIDLINE IV ACCESS ON RIGHT UPPER ARM, INTACT. SR ON TELE MONITOR AT 88. VIGIL CATH INTACT, EMPTED 600 ML OF CLEAR YELLOW URINE. CALL LIGHT WITHIN REACH. BED LOCKED AND IN LOWEST POSITION, WILL ENDORSE TO NEXT SHIFT NURSE FOR CONTINUOS MONITORING
[2021-12-31] MEDS: CEFTRIAXONE 1 G in IV D5W 50 ML IV SCH ×2 (20:00→20:23)
[2021-12-31 20:05] LABS: CALCIUM, SERUM 8.5 mg/dL (8.5-10.1); CARBON DIOXIDE 30 mmol/L (21-32); CHLORIDE 110 mmol/L (98-107); CREATININE 1.6 mg/dL (0.6-1.3); GLUCOSE 181 mg/dL (74-106); POTASSIUM 4.5 mmol/L (3.5-5.1); SODIUM SERUM 143 mmol/L (136-145); UREA NITROGEN, BLOOD 29 mg/dL (7-18)
[2021-12-31 20:22] LABS: EOSINOPHILS % (AUTO) 0.8 % (0.0-6.0); HEMATOCRIT 27 % (33-45); HEMOGLOBIN 8.6 g/dL (11.5-14.8); LYMPHOCYTES # (AUTO) 1.9 K/uL (0.8-4.8); LYMPHOCYTES % (AUTO) 16.1 % (20.0-44.0); MEAN CORPUSCULAR HGB CONC 33 g/dl (31.0-36.0); MEAN CORPUSCULAR VOLUME 100 fL (82-100); MONOCYTES # (AUTO) 0.6 K/uL (0.1-1.30); MONOCYTES % (AUTO) 4.9 % (2.0-12.0); NEUTROPHILS # (AUTO) 9.2 K/uL (1.8-8.9); NEUTROPHILS % (AUTO) 78.2 % (43.0-81.0); PLATELET COUNT (AUTO) 249 K/uL (150-450); RED BLOOD CELL COUNT(AUTO) 2.64 MIL/uL (4.0-5.2); WHITE BLOOD COUNT (AUTO) 11.8 K/uL (4.3-11.0)
--- NOTE | 2021-12-31 21:08 | NUR ---
SHOE RECONDITIONER OPENING NOTE PT RECEIVED IN BED, AWAKE, A&O X3, AGITATED. ON 3L NC WITH CURRENT O2SAT OF 90%; PT FOUND TO BE TAKING OFF NC. NOTED TO HAVE AUDIBLE EXPIRATORY WHEEZING AND PRODUCTIVE COUGH; NO OTHER S/S OF RESP DISTRESS, NON-LABORED AND EQUAL BREATHING. PT ATTACHED TO EXTERNAL MONITOR, SR WITH WITH HR OF 92. VIGIL INTACT AND PATENT, NO SIGNS OF LEAKING, DRAINING CLEAR AND YELLOW URINE. MONA MIDLINE INTACT AND PATENT, FLUSHES EASILY WITH NO RESISTANCE, NO MEDS/FLUIDS INFUSING THROUGH IT. BED IN LOWEST POSITION, CALL LIGHT WITHIN REACH, SIDE RAILS UP X3. WILL CONTINUE TO MONITOR THROUGHOUT THE NIGHT.
[2021-12-31] MEDS: ATORVASTATIN 40 MG TABLET PO SCH ×3 (21:16→21:20)
--- NOTE | 2021-12-31 21:22 | NUR ---
RN NOTE PT IS FOUND TO BE AGITATED AND REFUSED ROCEPHIN SCHEDULED FOR 1999 AND THE ATORVASTATIN SCHEDULED FOR 2199.
[2021-12-31 21:41] LABS: LYMPHOCYTES % (MANUAL) 24 % (16-48); MONOCYTES % (MANUAL) 3 % (0-11.0); NEUTROPHILS % (MANUAL) 73 (42-76)
[2022-01-01] VITALS: BP 125/72
--- NOTE | 2022-01-01 00:29 | NUR ---
RN NOTE PT'S NC OFF AND NOTED TO HAVE O2SAT OF 85%. SIMPLE FACE MASK 10L/MIN APPLIED TO PT.
--- NOTE | 2022-01-01 00:58 | NUR ---
RN NOTE O2SAT INCREASED TO 99%
[2022-01-01 04:00] VITALS: BP 127/73
--- NOTE | 2022-01-01 06:49 | NUR ---
RN NOTE PT REFUSED TO HAVE BLOOD DRAWN FROM MIDLINE AND FOR MEDIA PRODUCER TO EXTRACT BLOOD FROM HER.
--- NOTE | 2022-01-01 07:02 | NUR ---
HVAC INSTALLER CLOSING NOTE PT REMAINS IN BED, AWAKE, A&O X3 WITH PERIODS OF AGITATION. PT WAS PLACED ON SIMPLE FACE MASK AT 10L PT WAS DESATURATING D/T CONTINUOUSLY TAKING OFF HER NC; O2SAT WENT UP TO 99%; HAS PRODUCTIVE COUGH; PT DENIES ANY SOB; NO OTHER S/S OF RESP DISTRESS, NON-LABORED AND EQUAL BREATHING. PT ATTACHED TO EXTERNAL MONITOR, SR WITH WITH HR RANGING FROM 86-92. VIGIL INTACT AND PATENT, NO SIGNS OF LEAKING, DRAINING CLEAR AND YELLOW URINE. MONA MIDLINE AND RAC 20G INTACT AND PATENT, FLUSHES EASILY WITH NO RESISTANCE, NO MEDS/FLUIDS INFUSING THROUGH IT. BED IN LOWEST POSITION, CALL LIGHT WITHIN REACH, SIDE RAILS UP X3. WILL ENDORSE TO DAYSHIFT NURSE TO CONTINUE CARE.
--- NOTE | 2022-01-01 07:30 | NUR ---
ADMINISTRATIVE ANALYST OPENING NOTES: RECEIVED PATIENT IN BED, AWAKE, ALERT, AND ORIENTED X 3. ON OXYGEN WITH SIMPLE MASK @ 10L/MIN VIA N/C WITH OXYGEN SATURATION OF 96%. PATIENT HAS IV ACCESS ON RIGHT UPPER ARM MIDLINE, PATIENT REFUSES FOR THE NURSE TO FLUSH HER IV AT THIS TIME DESPITE EXPLAINING TO HER THE IMPORTANCE TO CHECK FOR PATENCY. PATIENT HAS HD ACCESS ON RIGHT FEMORAL SITE. VIGIL CATHETER INTACT, DRAINING WITH YELLOW ALESHA URINE, NO HEMATURIA AND NO SEDIMENTATION NOTED. NURSE JUST PLACED HER LEADS ON HER MONITOR BECAUSE SHE TOOK IT OFF. INFORMED HER TO PLEASE MAKE SURE NOT TO TAKE IT OFF, PATIENT AGREED AND UNDERSTOOD. BED LOCKED AND IN LOWEST POSITION, CALL LIGHT WITHIN REACH. ALL SAFETY MEASURES IN PLACE. WILL CONTINUE TO MONITOR PATIENT THROUGHOUT SHIFT.
[2022-01-01 08:00] VITALS: BP 121/78
[2022-01-01] MEDS: MIDODRINE HCL (5MG) 5 MG TABLET PO SCH ×3 (09:00→17:27)
[2022-01-01] MEDS: HYDROCORTISONE SOD SUCCINATE 100 MG/2 ML VIAL IV SCH ×2 (09:00→09:22)
[2022-01-01] MEDS: ASPIRIN 81 MG TAB.CHEW PO SCH (09:18)
[2022-01-01] MEDS: DIVALPROEX SODIUM 250 MG TABLET.DR PO SCH (09:19)
[2022-01-01] MEDS: DILTIAZEM HCL CD 300 MG PO SCH (09:19)
[2022-01-01] MEDS: QUETIAPINE FUMARATE 25 MG TABLET PO SCH ×3 (09:20→17:27)
[2022-01-01] MEDS: EZETIMIBE 10 MG TABLET PO SCH (09:20)
[2022-01-01] MEDS: PANTOPRAZOLE 40 MG TABLET.DR PO SCH (09:20)
[2022-01-01] MEDS: FLUCONAZOLE (100 MG) 100 MG TABLET PO SCH (09:20)
[2022-01-01] MEDS: CLOTRIMAZOLE 1% 15 GM TUBE TP SCH ×2 (09:22→17:26)
[2022-01-01 12:00] VITALS: BP 104/66
--- NOTE | 2022-01-01 14:18 | NUR ---
DIALYSIS NURSE GALI CAME TO DIALYZE THE PATIENT. PATIENT WAS COOPERATIVE WITH THE TREATMENT.
[2022-01-01 15:41] LABS: BASOPHILS % (AUTO) 0.1 % (0.0-2.0); EOSINOPHILS % (AUTO) 1.5 % (0.0-6.0); HEMATOCRIT 25 % (33-45); HEMOGLOBIN 8.1 g/dL (11.5-14.8); LYMPHOCYTES # (AUTO) 1.2 K/uL (0.8-4.8); LYMPHOCYTES % (AUTO) 11.3 % (20.0-44.0); MEAN CORPUSCULAR HGB CONC 33 g/dl (31.0-36.0); MEAN CORPUSCULAR VOLUME 101 fL (82-100); MONOCYTES # (AUTO) 0.4 K/uL (0.1-1.30); MONOCYTES % (AUTO) 3.3 % (2.0-12.0); NEUTROPHILS # (AUTO) 8.9 K/uL (1.8-8.9); NEUTROPHILS % (AUTO) 83.8 % (43.0-81.0); PLATELET COUNT (AUTO) 222 K/uL (150-450); RED BLOOD CELL COUNT(AUTO) 2.46 MIL/uL (4.0-5.2); WHITE BLOOD COUNT (AUTO) 10.7 K/uL (4.3-11.0)
[2022-01-01 16:00] VITALS: BP 92/53
--- NOTE | 2022-01-01 17:16 | NUR ---
HEMODIALYSIS WAS DONE, PATIENT TOLERATED PROCEDURE WELL. WAS ABLE TO REMOVE 1 L OF FLUID, LATEST BP WAS 100/51
[2022-01-01 17:24] LABS: CALCIUM, SERUM 8.2 mg/dL (8.5-10.1); POTASSIUM 3.8 mmol/L (3.5-5.1)
[2022-01-01] MEDS: DIVALPROEX SODIUM 500 MG TABLET.DR PO SCH (17:27)
--- NOTE | 2022-01-01 18:52 | NUR ---
BATTER DEPOSITOR CLOSING NOTES. PATIENT IN BED, AWAKE, ALERT, ORIENTED X 3. NO SOB NOTED AT THIS TIME, NO RESPIRATORY DISTRESS. ON OXYGEN @ 5L/MIN VIA N/C WITH OXYGEN SATURATION OF 93%. ON SR @ TELE MONITOR WITH HR OF 87. HAS RIGHT UPPER ARM MIDLINE, INTACT, FLUSHES WELL. VIGIL CATHETER IN PLACE, EMPTED 400 ML OF YELLOW COLORED URINE, NO HEMATURIA AND NO SEDIMENTATION NOTED. NO C/O PAIN OR DISCOMFORT AT THIS TIME. BED LOCKED AND IN LOWEST POSITION. HOB SLIGHTLY ELEVATED. CALL LIGHT WITHIN REACH. WILL ENDORSE TO NEXT SHIFT NURSE FOR CONTINUITY OF CARE.
[2022-01-01 20:00] VITALS: BP 99/63
--- NOTE | 2022-01-01 21:34 | NUR ---
BRUSH HEAD MAKER OPENING NOTE PT RECEIVED IN BED, AWAKE, A&O X3, AGITATED. ON 5L NC WITH CURRENT O2SAT OF 93%. PT HAS PRODUCTIVE COUGH BUT NO OTHER S/S OF RESP DISTRESS, NON-LABORED AND EQUAL BREATHING. PT ATTACHED TO EXTERNAL MONITOR, SR WITH WITH HR OF 83. VIGIL INTACT AND PATENT, NO SIGNS OF LEAKING, DRAINING CLEAR AND YELLOW URINE. MONA MIDLINE INTACT AND PATENT, FLUSHES EASILY WITH NO RESISTANCE, NO MEDS/FLUIDS INFUSING THROUGH IT. BED IN LOWEST POSITION, CALL LIGHT WITHIN REACH, SIDE RAILS UP X3. WILL CONTINUE TO MONITOR THROUGHOUT THE NIGHT.
[2022-01-01] MEDS: ATORVASTATIN 40 MG TABLET PO SCH (21:58)
--- NOTE | 2022-01-01 22:04 | NUR ---
RN NOTE REPORT GIVEN TO ELIGIO WEIR FOR SHAUNA
[2022-01-02] VITALS: BP 95/56
[2022-01-02 04:00] VITALS: BP 101/58
--- NOTE | 2022-01-02 06:55 | NUR ---
TUTOR COORDINATOR CLOSING NOTE PT REMAINS IN BED, AWAKE, A&O X3, HAS EPISODES OF AGITATION, ON O2 VIA NC CONNECTED TO HUMIDIFIER ON 5LPM PT TOLERATED WELL SATING 93. PT DENIES ANY SOB, NO S/S OF RESP DISTRESS BREATHING EVEN AND UNLABORED. PT ATTACHED TO EXTERNAL MONITOR, SR WITH WITH HR 88. VIGIL INTACT AND PATENT, NO SIGNS OF LEAKING, DRAINING CLEAR AND YELLOW URINE. MONA MIDLINE AND RAC 20G INTACT AND PATENT, FLUSHES EASILY WITH NO RESISTANCE, NO MEDS/FLUIDS INFUSING THROUGH IT. BED IN LOWEST POSITION, CALL LIGHT WITHIN REACH, SIDE RAILS UP X3. BED IN LOWEST POSITION, CALL LIGHT WITHIN REACH, SIDE RAILS UP X3. WILL ENDORSE TO AM NURSE TO CONTINUE CARE.
--- NOTE | 2022-01-02 07:30 | NUR ---
RN/NOTE REPORT RECEIVED PATIENT LAYING ON THE BED. A&OX2-3 CONFUSED. ALL VSS. PATIENT SATTING AT 91 % ON 3L NC. VOIDING VIGIL CATHETER. DIET CCHO. IV MONA MIDLINE. RAC#20G FORMAL HD CATHETER. ALL SAFETY FALL PRECAUTIONS IN PLACE BED LOCK ON, BED IN LOWEST POSITION, BED ALARM ON, SIDE RAILS UP, CALL LIGHT WITH IN REACH. WILL CONTINUE TO MONITOR.
[2022-01-02 08:00] VITALS: BP 111/63
[2022-01-02] MEDS: PANTOPRAZOLE 40 MG TABLET.DR PO SCH ×2 (09:00→09:26)
[2022-01-02] MEDS: DIVALPROEX SODIUM 250 MG TABLET.DR PO SCH ×2 (09:00→09:26)
[2022-01-02] MEDS: ASPIRIN 81 MG TAB.CHEW PO SCH ×2 (09:00→09:25)
[2022-01-02] MEDS: DILTIAZEM HCL CD 300 MG PO SCH (09:00)
[2022-01-02] MEDS: CLOTRIMAZOLE 1% 15 GM TUBE TP SCH ×2 (09:00→17:00)
[2022-01-02] MEDS: QUETIAPINE FUMARATE 25 MG TABLET PO SCH ×4 (09:00→17:00)
[2022-01-02] MEDS: ERGOCALCIFEROL (VITAMIN D 2) 50,000 UNIT CAPSULE PO SCH ×2 (09:00→09:25)
[2022-01-02] MEDS: MIDODRINE HCL (5MG) 5 MG TABLET PO SCH ×4 (09:00→17:00)
[2022-01-02] MEDS: EZETIMIBE 10 MG TABLET PO SCH ×2 (09:00→09:33)
[2022-01-02] MEDS: FLUCONAZOLE (100 MG) 100 MG TABLET PO SCH ×2 (09:00→09:26)
[2022-01-02] MEDS: FLUDROCORTISONE 0.1 MG TABLET PO SCH ×2 (09:00→09:26)
--- NOTE | 2022-01-02 09:00 | NUR ---
RN/NOTE PATIENT REFUSED TO TALK TO THE DOCTOR OR SEE HIM.
[2022-01-02] MEDS ORDERED: DILTIAZEM HCL 30 MG TABLET ONE (09:31)
--- NOTE | 2022-01-02 11:26 | NUR ---
RN/NOTE PATIENT REFUSED ALL MEDICATION SHE SAID IT WOULD MAKE HER SICK. A SECOND ATTEMPT WAS MADE TO GIVE THE PATIENT HER MEDICATION SHE STILL REFUSED.
[2022-01-02 12:00] VITALS: BP 121/78
[2022-01-02 16:00] VITALS: BP 135/79
[2022-01-02] MEDS: DIVALPROEX SODIUM 500 MG TABLET.DR PO SCH (18:00)
--- NOTE | 2022-01-02 18:59 | NUR ---
RN/CLOSING NOTE REPORT GIVEN. PATIENT ALERT AND AWAKE. ALL VSS NO SIGNS OF DISTRESS. PATIENT REFUSED ALL OF HER LABS TODAY SEVERAL ATTEMPTS WERE MADE. PATIENT REFUSED ALL OF HER MEDICATION TODAY, PATIENT REFUSED TO TALK TO THE DOCTOR. ALL CARE ENDORSED TO THE SAWYER HELPER NURSE.
--- NOTE | 2022-01-02 19:30 | NUR ---
SOLDER TECHNICIAN OPENING NOTE RECEIVED REPORT FROM AUDREY FOR SHAUNA. PT IN BED, AWAKE, A/O X3, ABLE TO MAKE NEEDS KNOWN. ON 3L NC WITH CURRENT O2 SAT OF 90%. NO S/SX OF RESP DISTRESS NOTED UPON ASSESSMENT, NON-LABORED AND EQUAL BREATHING APPARENT. MONA MIDLINE INTACT AND PATENT, FLUSHES EASILY WITH NO RESISTANCE, NO MEDS/FLUIDS INFUSING THROUGH IT. VIGIL INTACT AND PATENT, NO SIGNS OF LEAKING, DRAINING CLEAR AND YELLOW URINE BY GRAVITY. ALL SAFETY MEASURES IN PLACE: BED LOCKED, IN LOWEST POSITION, BED ALARM ON, CALL LIGHT WITHIN REACH, SIDE RAILS UP X3. WILL CONTINUE TO MONITOR THROUGHOUT THE NIGHT.
[2022-01-02 20:00] VITALS: BP 132/73
[2022-01-02] MEDS: ATORVASTATIN 40 MG TABLET PO SCH (21:01)
[2022-01-03] VITALS: BP 112/66
[2022-01-03 04:00] VITALS: BP 111/55
--- NOTE | 2022-01-03 06:28 | NUR ---
RN CLOSING NOTE PT REMAINED STABLE THROUGHOUT THE NIGHT. WAS COMPLIANT WITH THE MEDICATION AND BEDSIDE CARE DONE FOR HER. REFUSED BLOOD DRAW FROM LAB THIS MORNING THOUGH. ALL SAFETY MEASURES IN PLACE. WILL ENDORSE TO AM SHIFT NURSE FOR SHAUNA.
--- NOTE | 2022-01-03 07:30 | NUR ---
RN/NOTE REPORT RECEIVED PATIENT LAYING ON THE BED. A&OX2-3 CONFUSED. ALL VSS. PATIENT SATTING AT 93 % ON 3L NC. VOIDING VIGIL CATHETER. DIET CCHO CHOPPED FINE. IV MONA MIDLINE. RAC#20G FORMAL HD CATHETER. ALL SAFETY FALL PRECAUTIONS IN PLACE BED LOCK ON, BED IN LOWEST POSITION, BED ALARM ON, SIDE RAILS UP, CALL LIGHT WITH IN REACH. WILL CONTINUE TO MONITOR.
[2022-01-03 08:00] VITALS: BP 135/81
--- NOTE | 2022-01-03 08:00 | NUR ---
rn/note Patient refused all labs this morning.
[2022-01-03] MEDS: EZETIMIBE 10 MG TABLET PO SCH ×2 (09:00→09:08)
[2022-01-03] MEDS: FLUCONAZOLE (100 MG) 100 MG TABLET PO SCH ×2 (09:00→09:02)
[2022-01-03] MEDS: DIVALPROEX SODIUM 250 MG TABLET.DR PO SCH ×2 (09:00→09:02)
[2022-01-03] MEDS: PANTOPRAZOLE 40 MG TABLET.DR PO SCH ×2 (09:00→09:02)
[2022-01-03] MEDS: ASPIRIN 81 MG TAB.CHEW PO SCH ×2 (09:00→09:02)
[2022-01-03] MEDS: QUETIAPINE FUMARATE 25 MG TABLET PO SCH ×4 (09:00→17:00)
[2022-01-03] MEDS: FLUDROCORTISONE 0.1 MG TABLET PO SCH ×2 (09:00→09:03)
[2022-01-03] MEDS: MIDODRINE HCL (5MG) 5 MG TABLET PO SCH ×3 (09:00→17:00)
--- NOTE | 2022-01-03 09:00 | NUR ---
RN/NOTE PATIENT REFUSED MEDICATION. PATIENT WAS REEDUCATED ABOUT THE IMPORTANCE OF MEDICATION AND STILL REFUSED THREE ATTEMPTS WERE MADE BUT PATIENT STILL REFUSED.
[2022-01-03] MEDS: DILTIAZEM HCL CD 300 MG PO SCH (09:03)
[2022-01-03] MEDS: CLOTRIMAZOLE 1% 15 GM TUBE TP SCH ×2 (09:14→17:04)
--- NOTE | 2022-01-03 11:00 | NUR ---
RN/NOTE PATIENT'S BROTHER CALLED TO GET AN UPDATE. HE LEFT HIS NUMBER AND ASKED US TO CALL HIM IF THE PATIENT IS BEING NON COMPLIANT SO HE CAN TALK TO HER. BROTHER MICHAEL STRICKLAND [phone].
--- NOTE | 2022-01-03 11:00 | NUR ---
RN/NOTE THE LAB WAS CALLED TO COME DRAW THE PATIENT'S BLOOD WORK SHE AGREED TO HAVE IT DONE AFTER SHE SPOKE TO HER BROTHER. THE LAB CAME AND JALEEL HER BLOOD.
[2022-01-03 11:09] LABS: BASOPHILS % (AUTO) 0.1 % (0.0-2.0); EOSINOPHILS % (AUTO) 0.6 % (0.0-6.0); HEMATOCRIT 27 % (33-45); HEMOGLOBIN 8.9 g/dL (11.5-14.8); LYMPHOCYTES % (AUTO) 8.4 % (20.0-44.0); MEAN CORPUSCULAR HGB CONC 32 g/dl (31.0-36.0); MEAN CORPUSCULAR VOLUME 100 fL (82-100); MONOCYTES # (AUTO) 0.4 K/uL (0.1-1.30); MONOCYTES % (AUTO) 3.1 % (2.0-12.0); NEUTROPHILS % (AUTO) 87.8 % (43.0-81.0); PLATELET COUNT (AUTO) 230 K/uL (150-450); RED BLOOD CELL COUNT(AUTO) 2.75 MIL/uL (4.0-5.2); WHITE BLOOD COUNT (AUTO) 11.4 K/uL (4.3-11.0)
[2022-01-03 11:22] LABS: CALCIUM, SERUM 8.7 mg/dL (8.5-10.1); CREATININE 0.9 mg/dL (0.6-1.3); POTASSIUM 3.4 mmol/L (3.5-5.1)
[2022-01-03 12:00] VITALS: BP 142/74
[2022-01-03 16:00] VITALS: BP 124/89
[2022-01-03] MEDS: DIVALPROEX SODIUM 500 MG TABLET.DR PO SCH (17:04)
--- NOTE | 2022-01-03 18:54 | NUR ---
RN/NOTE PATIENT AWAKE AND ALERT A&OX2-3 CONFUSED AT TIMES. ALL VSS PATIENT SATTING AT 98% ON 5L NC. PATIENT SR. DIET CCHO FINE CHOPPED. ALL SAFETY FALL PRECAUTIONS IN PLACE BED LOCK ON, BED ALARM ON, SIDE RAILS UP, CALL LIGHT WITHIN REACH, NO SIGNS OF DISTRESS. ALL QUESTIONS ANSWERED. ALL CARE ENDORSED TO LOCAL SUPERINTENDENT RN.
--- NOTE | 2022-01-03 19:30 | NUR ---
INTERCEPTOR OPERATOR OPENING NOTE RECEIVED REPORT FROM AUDREY FOR SHAUNA. PT IN BED, AWAKE, A/O X3, ABLE TO MAKE NEEDS KNOWN. ON 5L O2 VIAMNC WITH CURRENT O2 SAT OF >95%. NO S/SX OF RESP DISTRESS NOTED UPON ASSESSMENT, NON-LABORED AND EQUAL BREATHING APPARENT. MONA MIDLINE INTACT AND PATENT, NO MEDS/FLUIDS INFUSING. RAC #20G ALSO NOTED, SL. VIGIL CATH PRESENT, INTACT AND PATENT, NO SIGNS OF LEAKING, DRAINING CLEAR AND YELLOW URINE BY GRAVITY. ALL SAFETY MEASURES IN PLACE: BED LOCKED, IN LOWEST POSITION, BED ALARM ON, CALL LIGHT WITHIN REACH, SIDE RAILS UP X3. HOB ELEVATED. WILL CONTINUE TO MONITOR THROUGHOUT THE NIGHT.
[2022-01-03 20:00] VITALS: BP 125/81
[2022-01-03] MEDS: ATORVASTATIN 40 MG TABLET PO SCH (21:28)
--- NOTE | 2022-01-03 21:28 | NUR ---
RN NOTE PT REFUSED TO TAKE HIS LIPITOR MEDICATION SCHEDULED FOR 2200 TONIGHT. EDUCATED PT THE IMPORTANCE OF MEDICATION COMPLIANCE. PT STILL REFUSED.
[2022-01-04] VITALS: BP 130/84
[2022-01-04 00:27] LABS: BAND % (MANUAL) 3 % (0.0-5.0); LYMPHOCYTES % (MANUAL) 11 % (16-48); REACTIVE LYMPHOCYTES 3 % (0-0)
[2022-01-04 00:28] LABS: NEUTROPHILS % (MANUAL) 83 (42-76)
[2022-01-04 04:00] VITALS: BP 123/73
--- NOTE | 2022-01-04 06:06 | NUR ---
RN NOTE PT REMAINED STABLE THROUGHOUT THE NIGHT. ALL VS WITHIN NORMAL RANGE. NO S/SX OF RESPIRATORY DISTRESS NOTED. O2 SAT AT 94%. NEEDS ATTENDED TO. HOB ELEVATED. WILL ENDORSE TO AM SHIFT NURSE FOR SHAUNA.
--- NOTE | 2022-01-04 07:30 | NUR ---
RN NOTE RECEIVED PATIENT IN BED RESTING ALERT ORIENTED X3 VERBALLY RESPONSIVE ON 5L OXYGEN VIA NASAL CANNULA O2:93% IV SITE IS ON RIGHT UPPER ARM,LEFT FOREARM INTACT PATENT,VIGIL CATH IN PLACE URINE DRAINING YELLOW BY GRAVITY,SAFETY MEASURE IMPLEMENT,BED IN LOW POSITION AND LOCKED,HEAD OF THE BED ELEVATED CONTINUE TO MONITOR.
[2022-01-04 08:00] VITALS: BP 143/83
[2022-01-04] MEDS: DIVALPROEX SODIUM 250 MG TABLET.DR PO SCH (08:08)
[2022-01-04] MEDS: QUETIAPINE FUMARATE 25 MG TABLET PO SCH ×3 (08:08→16:34)
[2022-01-04] MEDS: CLOTRIMAZOLE 1% 15 GM TUBE TP SCH ×2 (08:08→16:34)
[2022-01-04] MEDS: FLUDROCORTISONE 0.1 MG TABLET PO SCH (08:09)
[2022-01-04] MEDS: ASPIRIN 81 MG TAB.CHEW PO SCH (08:09)
[2022-01-04] MEDS: EZETIMIBE 10 MG TABLET PO SCH (08:09)
[2022-01-04] MEDS: PANTOPRAZOLE 40 MG TABLET.DR PO SCH (08:09)
[2022-01-04] MEDS: FLUCONAZOLE (100 MG) 100 MG TABLET PO SCH (08:09)
[2022-01-04] MEDS: DILTIAZEM HCL CD 300 MG PO SCH (08:10)
[2022-01-04] MEDS: MIDODRINE HCL (5MG) 5 MG TABLET PO SCH ×3 (08:11→16:34)
[2022-01-04 12:00] VITALS: BP 104/58
--- NOTE | 2022-01-04 14:55 | NUR ---
RN NOTE PATIENT REFUSED THE LABS TODAY NOTIFIED LUCILLE HEIN CONTINUE TO MONITOR.
[2022-01-04 16:00] VITALS: BP 101/62
[2022-01-04] MEDS: DIVALPROEX SODIUM 500 MG TABLET.DR PO SCH (17:10)
--- NOTE | 2022-01-04 18:35 | NUR ---
RN NOTE PATIENT REMAINS ALERT ORIENTEDX3 VERBALLY RESPONSIVE ON 5L OXYGEN VIA NASAL CANNULA,02:93% NO SOB NOT ACUTE DISTRESS NOTED ALL DUE MEDS MD ORDERED KEPT CLEAN AND DRY ALL THE TIME,REPOSITION AND TURN EVERY 2 HOURS,KEPT CALL LIGHT WITHIN REACH, WILL ENDORSE NEXT COMING SHIFT FOR CONTINUATION OF CARE
--- NOTE | 2022-01-04 19:30 | NUR ---
TIME CLOCK REPAIRER OPENING NOTE RECEIVED REPORT FROM YESSICA FOR SHAUNA. PT IN BED, AWAKE, A/O X3, ABLE TO MAKE NEEDS KNOWN. ON 5L O2 VIA NC WITH CURRENT O2 SAT OF >95%. NO S/SX OF RESP DISTRESS NOTED UPON ASSESSMENT, NON-LABORED AND EQUAL BREATHING APPARENT. MONA MIDLINE INTACT AND PATENT, NO MEDS/FLUIDS INFUSING. RAC #20G ALSO NOTED, SL. VIGIL CATH PRESENT, INTACT AND PATENT, NO SIGNS OF LEAKING, DRAINING CLEAR AND YELLOW URINE BY GRAVITY. ALL SAFETY MEASURES IN PLACE: BED LOCKED, IN LOWEST POSITION, BED ALARM ON, CALL LIGHT WITHIN REACH, SIDE RAILS UP X3. HOB ELEVATED. WILL CONTINUE TO MONITOR THROUGHOUT THE NIGHT.
[2022-01-04 20:00] VITALS: BP 101/62
--- NOTE | 2022-01-04 20:30 | NUR ---
RN NOTE PT REFUSED TO HAVE HER VS TAKEN.
[2022-01-04] MEDS: ATORVASTATIN 40 MG TABLET PO SCH (22:00)
--- NOTE | 2022-01-04 22:10 | NUR ---
RN NOTE PT REFUSED HER LIPITOR MEDICATION.
[2022-01-05] VITALS: BP 107/62
--- NOTE | 2022-01-05 05:10 | NUR ---
RN NOTE PT REFUSED VS AND BLOOD DRAW FROM LAB.
--- NOTE | 2022-01-05 06:36 | NUR ---
RN CLOSING NOTE PT TOLERATING O2 VIA NC AT 5L. NO S/SX OF ACUTE RESPI DISTRESS NOTED. O2 SAT IS >96%. WILL ENDORSE TO AM SHIFT NURSE FOR SHAUNA.
--- NOTE | 2022-01-05 07:30 | NUR ---
RN OPENING NOTE PATIENT IS IN BED AWAKE,ALERT AND ORIENTED X 3, WITH O2 VIA NASAL CANNULA AT 5L/MIN, BREATHING UNLABORED AND NOT IN ANY FORM OF DISTRESS. SINUS RHYTHM ON HAIRSPRING STUDDER. VIGIL CATHETER INTACT AND ATTACHED TO URINE BAG DRAINING TO A CLEAR YELLOW COLORED URINE. RIGHT UPPER ARM MIDLINE INTACT AND PATENT. RIGHT ANTECUBITAL LINE INTACT AND PATENT. BED IS LOCKED IN LOWEST POSITION, 3 SIDE RAILS UP, CALL LIGHT WITHIN REACH. WILL CONTINUE TO MONITOR THROUGHOUT SHIFT.
[2022-01-05 08:00] VITALS: BP 118/66
[2022-01-05] MEDS: MIDODRINE HCL (5MG) 5 MG TABLET PO SCH ×3 (09:00→17:30)
[2022-01-05] MEDS: FLUDROCORTISONE 0.1 MG TABLET PO SCH (09:37)
[2022-01-05] MEDS: FLUCONAZOLE (100 MG) 100 MG TABLET PO SCH (09:37)
[2022-01-05] MEDS: PANTOPRAZOLE 40 MG TABLET.DR PO SCH (09:38)
[2022-01-05] MEDS: DIVALPROEX SODIUM 250 MG TABLET.DR PO SCH (09:39)
[2022-01-05] MEDS: ASPIRIN 81 MG TAB.CHEW PO SCH (09:39)
[2022-01-05] MEDS: QUETIAPINE FUMARATE 25 MG TABLET PO SCH ×3 (09:39→17:29)
[2022-01-05] MEDS: EZETIMIBE 10 MG TABLET PO SCH (09:39)
[2022-01-05] MEDS: DILTIAZEM HCL CD 300 MG PO SCH (09:42)
[2022-01-05] MEDS: CLOTRIMAZOLE 1% 15 GM TUBE TP SCH ×2 (09:43→17:30)
[2022-01-05 10:34] LABS: ABG BASE EXCESS 11.3 mmol/L; ABG OXYGEN SATURATION 87.3 % (92.0-98.5); ABG PCO2 61.3 mmHg (35.0-45.0); ABG PH 7.405 (7.350-7.450); ABG PO2 53.2 mmHg (75.0-100.0); AaDO2 161.5 mmHg; MetHb 0.3 % (0.0-1.5); SITE, ABG Right Radial; VENT MODE, BG 5LPM NC
[2022-01-05 12:00] VITALS: BP 99/62
--- NOTE | 2022-01-05 15:01 | NUR ---
RN NOTE PATIENT REFUSED BLOOD DRAW TWICE. PATIENT REFUSED FLUSHING OF IV LINE WELL.
[2022-01-05 16:00] VITALS: BP 99/60
[2022-01-05] MEDS: ARIPIPRAZOLE 5 MG TABLET PO SCH (17:29)
[2022-01-05] MEDS: DIVALPROEX SODIUM 500 MG TABLET.DR PO SCH (17:29)
--- NOTE | 2022-01-05 17:36 | NUR ---
RN NOTE PATIENT REFUSED REMOVAL OF HD CATHETER BY HD NURSE, SAYING SHE PREFERS TO HAVE IT REMOVED AFTER DINNER.
--- NOTE | 2022-01-05 18:59 | NUR ---
RN NOTE PATIENT STILL REFUSED REMOVAL OF HD CATHETER DESPITE EXPLANATION OF RISKS. PATIENT SAYS SHE WILL HAVE IT REMOVED TOMORROW.
--- NOTE | 2022-01-05 19:00 | NUR ---
RN CLOSING NOTE PATIENT REMAINED STABLE THROUGHOUT SHIFT. ALERT, ORIENTED X 3. TOLERATES OXYGEN VIA NASAL CANNULA NOW AT 7L/MIN. BREATHING UNLABORED AND NOT IN ANY FORM OF DISTRESS. IV LINE REMAINS INTACT AND PATENT. HD CATHETER ON RIGHT FEMORAL IS INTACT AND COVERED WITH DRY DRESSING. VIGIL CATHETER REMAINS INTACT. ALL HOSPITAL SAFETY PRECAUTIONS IN PLACE. WILL ENDORSE TO INSOLE TAPER NURSE.
[2022-01-05 20:00] VITALS: BP 101/54
--- NOTE | 2022-01-05 20:00 | NUR ---
RN OPENING NOTE PATIENT IS IN BED AWAKE,ALERT AND ORIENTED X 3, WITH O2 VIA NASAL CANNULA AT 7L/MIN, BREATHING UNLABORED AND NOT IN ANY FORM OF DISTRESS. SINUS RHYTHM ON MANUFACTURING DESIGN ENGINEER. VIGIL CATHETER INTACT AND ATTACHED TO URO BAG DRAINING TO A CLEAR YELLOW COLORED URINE. RIGHT UPPER ARM MIDLINE INTACT AND PATENT. RIGHT AC g20 INTACT AND PATENT.ALL DUE MEDS GIVEN ORDERED . BED IS LOCKED IN LOWEST POSITION, 3 SIDE RAILS UP, CALL LIGHT WITHIN REACH. WILL CONTINUE TO MONITOR THROUGHOUT SHIFT. PTS KEPT REMOVING THE O2 VIA NC ,NOTED PTS SAT ON 80% CHANGE NC TO SIMPLE MASK AT 8 LITERS RT AT BEDSIDE SATURATION WENT UP TO 93-94% NO SOB NO DISTRESS NOTED. EXPLAIN TO PTS THAT SHE GONNA HAVE BIPAP ORDER TONITE , PTS REFUSED TO HAVE THE BIPAP RISK AND BENEFITS EXPLAIN PTS VERBALIZE UNDERSTANDING BUT STILL SHE DOES NOT WANT BIPAP .WILL CONTINUE TO MONITOR.
--- NOTE | 2022-01-05 20:58 | NUR ---
RT pt sat on RA 69%. pt removed simple mask. placed simple mask back on pt, 8L, sat up to 93%. pt refuses to go on bipap. no sob, no resp distress noted. notified malinda vaughn.
[2022-01-05] MEDS: ATORVASTATIN 40 MG TABLET PO SCH (21:05)
[2022-01-06] VITALS: BP 108/71
[2022-01-06 04:00] VITALS: BP 105/65
--- NOTE | 2022-01-06 06:26 | NUR ---
television installer notes Pts n bed on simple mask at 8 liters , pts sating 93% , easily desaturates encourage pts not to take out the oxygen. hob elevated at all times .will endorse to rn day shift for continuity of care.
--- NOTE | 2022-01-06 07:23 | NUR ---
RN OPENING NOTE PATIENT IS IN BED AWAKE,ALERT AND ORIENTED X 3, WITH O2 VIA NASAL CANNULA AT 8L/MIN, BREATHING UNLABORED AND NOT IN ANY FORM OF DISTRESS. SINUS RHYTHM ON KITCHEN STEWARD. VIGIL CATHETER INTACT AND ATTACHED TO URO BAG DRAINING TO A CLEAR YELLOW COLORED URINE. RIGHT UPPER ARM MIDLINE INTACT AND PATENT. RIGHT AC g20 INTACT AND PATENT. BED IS LOCKED IN LOWEST POSITION, 3 SIDE RAILS UP, CALL LIGHT WITHIN REACH.
[2022-01-06 08:00] VITALS: BP 111/72
[2022-01-06] MEDS: PANTOPRAZOLE 40 MG TABLET.DR PO SCH (08:21)
[2022-01-06] MEDS: MIDODRINE HCL (5MG) 5 MG TABLET PO SCH ×3 (08:22→17:14)
[2022-01-06] MEDS: ARIPIPRAZOLE 5 MG TABLET PO SCH ×2 (08:22→17:14)
[2022-01-06] MEDS: EZETIMIBE 10 MG TABLET PO SCH (08:22)
[2022-01-06] MEDS: DIVALPROEX SODIUM 250 MG TABLET.DR PO SCH (08:22)
[2022-01-06] MEDS: DILTIAZEM HCL CD 300 MG PO SCH (08:22)
[2022-01-06] MEDS: FLUDROCORTISONE 0.1 MG TABLET PO SCH (08:22)
[2022-01-06] MEDS: ASPIRIN 81 MG TAB.CHEW PO SCH (08:22)
[2022-01-06] MEDS: QUETIAPINE FUMARATE 25 MG TABLET PO SCH ×3 (08:22→17:14)
[2022-01-06] MEDS: CLOTRIMAZOLE 1% 15 GM TUBE TP SCH ×2 (08:25→17:14)
[2022-01-06 08:42] LABS: CALCIUM, SERUM 8.5 mg/dL (8.5-10.1); CREATININE 0.9 mg/dL (0.6-1.3); POTASSIUM 3.8 mmol/L (3.5-5.1)
[2022-01-06 12:00] VITALS: BP 108/68
[2022-01-06] MEDS: FLUCONAZOLE (100 MG) 100 MG TABLET PO SCH (13:00)
[2022-01-06 16:00] VITALS: BP 106/62
[2022-01-06] MEDS: DIVALPROEX SODIUM 500 MG TABLET.DR PO SCH (17:14)
--- NOTE | 2022-01-06 18:56 | NUR ---
RN CLOSING NOTE PATIENT REMAINED STABLE THROUGHOUT SHIFT. ALERT, ORIENTED X 3. TOLERATES OXYGEN VIA MASK NOW AT 6L/MIN. BREATHING UNLABORED AND NOT IN ANY FORM OF DISTRESS. IV LINE REMAINS INTACT AND PATENT. HD CATHETER ON RIGHT FEMORAL IS INTACT AND COVERED WITH DRY DRESSING. VIGIL CATHETER REMAINS INTACT. ALL HOSPITAL SAFETY PRECAUTIONS IN PLACE. WILL ENDORSE TO ANIMAL CARETAKER NURSE.
[2022-01-06 20:00] VITALS: BP 107/71
--- NOTE | 2022-01-06 20:00 | NUR ---
DOOR HANGER OPENING NOTE PATIENT IS IN BED AWAKE,ALERT AND ORIENTED X 3, WITH O2 VIA NASAL CANNULA AT 6L/MIN,SATING 92% BREATHING UNLABORED AND NOT IN ANY FORM OF DISTRESS. SINUS RHYTHM ON HOSTESS PARTY SALES REPRESENTATIVE. VIGIL CATHETER INTACT AND ATTACHED TO URO BAG DRAINING TO A CLEAR YELLOW COLORED URINE. RIGHT UPPER ARM MIDLINE INTACT AND PATENT. RIGHT AC g20 INTACT AND PATENT.ALL DUE MEDS GIVEN ORDERED . BED IS LOCKED IN LOWEST POSITION, 3 SIDE RAILS UP, CALL LIGHT WITHIN REACH. WILL CONTINUE TO MONITOR THROUGHOUT SHIFT.
--- NOTE | 2022-01-06 20:49 | NUR ---
MARINE SPECIALIST NOTES PTS ACTUALLY ON SIMPLE MASK AT 6 LITERS OF O2 SATING 93% NO SOB NO DISTRESS NOTED .
--- NOTE | 2022-01-06 21:00 | NUR ---
telephone claims representative notes PTS ON SIMPLE MASK AT 6 LITERS RT AT BEDSIDE SATURATION OF 91% NO SOB NO DISTRESS NOTED. EXPLAIN TO PTS THAT SHE GONNA HAVE BIPAP ORDER TONITE , PTS REFUSED TO HAVE THE BIPAP RISK AND BENEFITS EXPLAIN PTS VERBALIZE UNDERSTANDING BUT STILL SHE DOES NOT WANT BIPAP .WILL CONTINUE TO MONITOR.
[2022-01-06] MEDS: ATORVASTATIN 40 MG TABLET PO SCH (21:07)
--- NOTE | 2022-01-06 22:30 | NUR ---
RT NOTE Pt asleep when received. On 8L simple mask. No respiratory distress or SOB. SPO2 98%. Pt woken up and refuses bipap. Will ask again later.
[2022-01-07] VITALS: BP 92/69
--- NOTE | 2022-01-07 01:33 | NUR ---
RT NOTE Asked pt again and still refuses that they need to be on bipap. Pt appeared alert and able to answer questions. SPO2 93%.
[2022-01-07 04:00] VITALS: BP 102/66
--- NOTE | 2022-01-07 06:09 | NUR ---
RT NOTE Pt refuses noc bipap. SPO2 95%. RN Hailee aware.
--- NOTE | 2022-01-07 06:33 | NUR ---
telephone services sales representative notes Pts n bed on simple mask at 6 liters , pts sating 93% , easily desaturates encourage pts not to take out the oxygen. hob elevated at all times .will endorse to rn day shift for continuity of care.
--- NOTE | 2022-01-07 07:46 | NUR ---
TORCH SOLDERER OPENING NOTED PATIENT IN THE BED AWAKE AND ALERT. ALERT AND ORIENTED. ON 6L OXYGEN VIA SIMPLE MASK SATURATING 99% . ON TELE MONITORING WITH SR HEART RATE= 96. ON VIGIL CATHETER WITH YELLOW COLORED URINE DRAINING IN GRAVITY. WITH MONA AND RAC INTACT. ALL NEEDS ATTENDED. BED IN LOWEST POSITION. CALL LIGHT WITHIN REACH. SAFETY MEASURE IMPLEMENTED. WILL CONTINUE TO MONITOR.
[2022-01-07 08:00] VITALS: BP 124/80
[2022-01-07 08:22] LABS: CALCIUM, SERUM 8.4 mg/dL (8.5-10.1); CREATININE 0.8 mg/dL (0.6-1.3); POTASSIUM 3.9 mmol/L (3.5-5.1)
[2022-01-07] MEDS: MIDODRINE HCL (5MG) 5 MG TABLET PO SCH ×3 (09:00→16:37)
[2022-01-07] MEDS: ASPIRIN 81 MG TAB.CHEW PO SCH (09:14)
[2022-01-07] MEDS: ARIPIPRAZOLE 5 MG TABLET PO SCH ×2 (09:14→16:37)
[2022-01-07] MEDS: DILTIAZEM HCL CD 300 MG PO SCH (09:14)
[2022-01-07] MEDS: FLUDROCORTISONE 0.1 MG TABLET PO SCH (09:14)
[2022-01-07] MEDS: DIVALPROEX SODIUM 250 MG TABLET.DR PO SCH (09:14)
[2022-01-07] MEDS: QUETIAPINE FUMARATE 25 MG TABLET PO SCH ×3 (09:15→16:37)
[2022-01-07] MEDS: EZETIMIBE 10 MG TABLET PO SCH (09:15)
[2022-01-07] MEDS: PANTOPRAZOLE 40 MG TABLET.DR PO SCH (09:15)
[2022-01-07] MEDS: FLUCONAZOLE (100 MG) 100 MG TABLET PO SCH (09:15)
--- NOTE | 2022-01-07 09:27 | NUR ---
ASSEMBLER WATCH TRAIN NOTE PER RT CHANGED TO 4L NC 4 L SATURATION 93% AT THIS TIME , WILL MONITOR
[2022-01-07] MEDS: CLOTRIMAZOLE 1% 15 GM TUBE TP SCH ×2 (09:28→17:31)
--- NOTE | 2022-01-07 09:34 | NUR ---
RN NOTES HOLD MIDODRINE DUE TO BP IS 124/80, PARAMETER IS HOLD IF BP >120
--- NOTE | 2022-01-07 11:30 | NUR ---
ASSISTANT TERMINAL MANAGER NOTE CHECKED PATIENT, SATURATIION 81% CALLED RT
[2022-01-07 12:00] VITALS: BP 110/69
--- NOTE | 2022-01-07 12:03 | NUR ---
PRESCHOOL PARAPROFESSIONAL NOTE RT AT BEDSIDE, PLACED ON 6L NC, SATURATION 89-89%
--- NOTE | 2022-01-07 15:30 | NUR ---
SLIDER ASSEMBLER NOTES ROUNDS MADE, PATIENT ALERT AND RESPONSIVE. NO SOB NOTED. NOT IN DISTRESS. ON 6 LITERS 02 VIA NASAL CANNULA SATURATING @88%. TURN AND REPOSITIONED. BED IN LOWEST POSITION. CALL LIGHT WITHIN REACH. WILL CONTINUE TO MONITOR.
[2022-01-07 16:00] VITALS: BP 110/85
[2022-01-07] MEDS: DIVALPROEX SODIUM 500 MG TABLET.DR PO SCH ×2 (17:26→17:38)
--- NOTE | 2022-01-07 18:34 | NUR ---
LACING CUTTER CLOSING NOTED PATIENT IN THE BED ALERT. NO SOB NOTED. NOT IN DISTRESS. ON 6L OXYGEN VIA SIMPLE MASK SATURATING 88-89% . ON TELE MONITORING WITH SR. ON VIGIL CATHETER WITH YELLOW COLORED URINE DRAINING IN GRAVITY. WITH MONA AND RAC PATENT AND INTACT. ALL NEEDS ATTENDED. BED IN LOWEST POSITION. CALL LIGHT WITHIN REACH. SAFETY MEASURE IMPLEMENTED. WILL ENDORSE TO NIGHT NURSE FOR SHAUNA.
--- NOTE | 2022-01-07 19:30 | NUR ---
TECHNICAL ASSISTANCE CONSULTANT OPENING NOTE RECEIVED REPORT FROM KEN FOR SHAUNA. PATIENT IS IN BED AWAKE, ALERT AND ORIENTED X 3, CURRENTLY WITH O2 VIA NASAL CANNULA AT 6L/MIN, SATING 92%. BREATHING UNLABORED AND NOT IN ANY FORM OF DISTRESS AT THIS TIME. TELE MONITOR SHOWS ST WITH HR >100 BPM. RIGHT UPPER ARM MIDLINE AND RIGHT WRIST #24g NOTED, BOTH INTACT AND PATENT. VIGIL CATHETER IN PLACE AND ATTACHED TO BAG DRAINING TO A CLEAR YELLOW COLORED URINE BY GRAVITY. ALL SAFETY MEASURES IN PLACE: BED IS LOCKED IN LOWEST POSITION, 3 SIDE RAILS UP, CALL LIGHT WITHIN REACH. WILL CONTINUE TO MONITOR THROUGHOUT SHIFT.
[2022-01-07 20:00] VITALS: BP 139/73
--- NOTE | 2022-01-07 21:03 | NUR ---
RT NOTE PATIENT IS AWAKE, ABLE TO RESPOND AND FOLLOW DIRECTIONS. PATIENT REFUSING TO USE BIPAP AT THIS TIME. EXPLAINED INDICATIONS AND BENEFITS OF USING BIPAP. PATIENT STILL REFUSING TO USE IT. CURRENTLY ON 6LPM NASAL CANNULA. WILL CONTINUE TO MONITOR PATIENT.
[2022-01-07] MEDS: ATORVASTATIN 40 MG TABLET PO SCH (22:00)
--- NOTE | 2022-01-07 22:30 | NUR ---
RN NOTE PT REFUSED TO TAKE HER LIPITOR MED FOR 2199.
[2022-01-08] VITALS: BP 110/65
[2022-01-08 04:00] VITALS: BP 130/66
--- NOTE | 2022-01-08 05:35 | NUR ---
RN CLOSING NOTE PT STILL NON COMPLIANT WITH HER TREATMENT. REFUSED NIGHT MED AND BIPAP. EXPLAINED TO PT THE IMPORTANCE OF COMPLYING WITH HER TX, PT STILL REFUSED. NONETHELESS, PT REMAINED STABLE THE WHOLE NIGHT.ALL VS WNL. TURNED AND REPOSITIONED. NEEDS ATTENDED TO. WILL ENDORSE TO AM SHIFT NURSE FOR SHAUNA.
[2022-01-08 08:00] VITALS: BP 134/86
[2022-01-08] MEDS: DIVALPROEX SODIUM 250 MG TABLET.DR PO SCH (09:29)
[2022-01-08] MEDS: FLUDROCORTISONE 0.1 MG TABLET PO SCH (09:29)
[2022-01-08] MEDS: ASPIRIN 81 MG TAB.CHEW PO SCH (09:29)
[2022-01-08] MEDS: ARIPIPRAZOLE 5 MG TABLET PO SCH ×2 (09:29→17:41)
[2022-01-08] MEDS: FLUCONAZOLE (100 MG) 100 MG TABLET PO SCH (09:29)
[2022-01-08] MEDS: EZETIMIBE 10 MG TABLET PO SCH (09:35)
[2022-01-08] MEDS: MIDODRINE HCL (5MG) 5 MG TABLET PO SCH ×3 (09:35→17:42)
[2022-01-08] MEDS: DILTIAZEM HCL CD 300 MG PO SCH (09:35)
[2022-01-08] MEDS: QUETIAPINE FUMARATE 25 MG TABLET PO SCH ×3 (09:35→17:42)
[2022-01-08] MEDS: CLOTRIMAZOLE 1% 15 GM TUBE TP SCH ×2 (09:36→17:43)
[2022-01-08] MEDS: PANTOPRAZOLE 40 MG TABLET.DR PO SCH (09:36)
[2022-01-08 10:45] LABS: ABG BASE EXCESS 12.7 mmol/L; ABG OXYGEN SATURATION 83.3 % (92.0-98.5); ABG PCO2 60.2 mmHg (35.0-45.0); ABG PH 7.427 (7.350-7.450); ABG PO2 47.5 mmHg (75.0-100.0); AaDO2 314.1 mmHg; COHb 0.3 % (0.5-1.5); MetHb 0.2 % (0.0-1.5); O2Hb 82.9 % (94.0-97.0); SITE, ABG Left Radial
[2022-01-08 12:00] VITALS: BP 144/65
[2022-01-08 16:00] VITALS: BP 115/63
[2022-01-08] MEDS: DIVALPROEX SODIUM 500 MG TABLET.DR PO SCH (17:41)
--- NOTE | 2022-01-08 19:00 | NUR ---
RN CLOSING NOTED PATIENT IN THE BED A/O 2-3. NO SOB NOTED. NOT IN DISTRESS. ON HIGH FLOW 40 LITERS 70% OXYGEN O2 NMN96-82% . ON TELE MONITORING WITH SR. ON VIGIL CATHETER WITH YELLOW COLORED URINE DRAINING IN GRAVITY. WITH MONA AND RAC PATENT AND INTACT. ALL NEEDS ATTENDED. BED IN LOWEST POSITION. CALL LIGHT WITHIN REACH. SAFETY MEASURE IMPLEMENTED. WILL ENDORSE TO NIGHT NURSE FOR SHAUNA
--- NOTE | 2022-01-08 19:30 | NUR ---
ASSURANCE ANALYST OPENING NOTE RECEIVED REPORT FROM CHANDAN FOR [facility]. PATIENT IS IN BED AWAKE, ALERT AND ORIENTED X 2, CURRENTLY WITH HIGH FLOW O2, 40 L, 70%. SATING @ 90%. BREATHING UNLABORED AND NOT IN ANY FORM OF DISTRESS AT THIS TIME. TELE MONITOR SHOWS SR WITH HR IN 70s. MONA MIDLINE AND RIGHT WRIST #24g NOTED, BOTH INTACT AND PATENT. SOFT WRIST RESTRAINTS ON BILATERAL HANDS NOTED. NO CIRCULATION ISSUES AT THIS TIME. VIGIL CATHETER IN PLACE AND ATTACHED TO BAG DRAINING TO A CLEAR YELLOW COLORED URINE BY GRAVITY. ALL SAFETY MEASURES IN PLACE: BED IS LOCKED IN LOWEST POSITION, 3 SIDE RAILS UP, CALL LIGHT WITHIN REACH. WILL CONTINUE TO MONITOR T/O SHIFT.
[2022-01-08 20:00] VITALS: BP 119/67
[2022-01-08] MEDS: ATORVASTATIN 40 MG TABLET PO SCH (22:00)
--- NOTE | 2022-01-08 22:32 | NUR ---
RN NOTE PT REFUSED LIPITOR MED.
[2022-01-09] VITALS (24 sets, daily range): BP systolic 78–137; BP diastolic 43–79
[2022-01-09] MEDS: PIPERACILLIN /TAZOBACTAM 3.375 G in IV D5W 100 ML IV SCH ×3 (01:00→17:00)
--- NOTE | 2022-01-09 06:13 | NUR ---
RT NOTE PT RECEIVED ON HFNC 40L 70%. PT DESAT AND FIO2 TITRATED UP TO 100% W NON REBREATHER. PT IS AWAKE AND ALERT REFUSING NASAL SX. PT HAS NON PRODUCTIVE COUGH. BENEFITS EXPLAINED TO PT BUT PT STILL REFUSING T/O NIGHT. RN AWARE.
--- NOTE | 2022-01-09 06:18 | NUR ---
RN NOTE PT REMAINS IN BED, HOB ELEVATED. CURRENTLY ON HIGH FLOW NC AT 40L, 100%. AT THE SAME TIME, PT IS ON NRB MASK PT STARTED TO DESAT TO THE 80s LAST NIGHT. PT FEELS UNCOMFORTABLE AND TRIES TO REMOVE THE NRB. ON SOFT WRIST RESTRAINTS ON BOTH HANDS TO AVOID PT FROM REMOVING THE MASK. PT IS STABLE RIGHT NOW WITH 02 SAT >90%. NO S/SX OF ACUTE DISTRESS NOTED. TELE MONITOR READS SR. ALL OTHER VS STABLE. WILL ENDORSE TO AM SHIFT NURSE FOR SHAUNA.
--- NOTE | 2022-01-09 07:52 | NUR ---
METAL ENGRAVER NOTE RECEIVED PATIENT IN THE BED ALERT WITH SOME CONFUSION ON HGH FLOW O2 40L 94%. ON TELEMONITOR HEART RATE SINUS RHYTHM 71 RVA ML 20G PATIENT ON SOFT RESTRAIN TO PREVENT PULLING OF LINES. BED IN LOW LOCKED POSITION SAFETY MEASURE IMPLEMENTED, WILL CONTINUE TO MONITOR.
[2022-01-09] MEDS: MIDODRINE HCL (5MG) 5 MG TABLET PO SCH ×3 (09:00→17:27)
[2022-01-09] MEDS: ASPIRIN 81 MG TAB.CHEW PO SCH (09:18)
[2022-01-09] MEDS: ARIPIPRAZOLE 5 MG TABLET PO SCH ×2 (09:18→17:27)
[2022-01-09] MEDS: QUETIAPINE FUMARATE 25 MG TABLET PO SCH ×3 (09:18→20:30)
[2022-01-09] MEDS: FLUCONAZOLE (100 MG) 100 MG TABLET PO SCH (09:18)
[2022-01-09] MEDS: FLUDROCORTISONE 0.1 MG TABLET PO SCH (09:19)
[2022-01-09] MEDS: DILTIAZEM HCL CD 300 MG PO SCH (09:19)
[2022-01-09] MEDS: EZETIMIBE 10 MG TABLET PO SCH (09:19)
[2022-01-09] MEDS: DIVALPROEX SODIUM 250 MG TABLET.DR PO SCH (09:19)
[2022-01-09] MEDS: PANTOPRAZOLE 40 MG TABLET.DR PO SCH (09:19)
[2022-01-09] MEDS: ERGOCALCIFEROL (VITAMIN D 2) 50,000 UNIT CAPSULE PO SCH (09:20)
--- NOTE | 2022-01-09 09:30 | NUR ---
OFFICE CLERK ROUTINE NOTE PHYSICAL THERAPIST AT BEDSIDE ABLE TO SIT AT THE EDGE OF THE BED ONLY IF ATTENDED Addendum: 01/09/22 at 1136 by KEN UGARTE RN PT AT BEDSIDE,ABLE TO SIT AT EDGE OF BED . NOT IN DISTRESS
[2022-01-09] MEDS: CLOTRIMAZOLE 1% 15 GM TUBE TP SCH ×2 (09:31→17:29)
[2022-01-09 10:05] LABS: ABG BASE EXCESS 15.6 mmol/L; ABG OXYGEN SATURATION 97.2 % (92.0-98.5); ABG PCO2 77.7 mmHg (35.0-45.0); ABG PH 7.363 (7.350-7.450); ABG PO2 104.6 mmHg (75.0-100.0); AaDO2 530.7 mmHg; COHb 0.3 % (0.5-1.5); MetHb 0.3 % (0.0-1.5); O2Hb 96.6 % (94.0-97.0); SITE, ABG Left Radial; VENT MODE, BG 100 % HFNC/ NRB
--- NOTE | 2022-01-09 10:16 | NUR ---
MONUMENTAL STONEMASON NOTES DR. CABEZAS AND DR. CAMPOS SAW PATIENT AND OKAY TO KEEP HIGH FLOW AND HOLD OFF ON NON-REBREATHER MASK WAITING FOR CHEST X-RAY AGB DONE RESULTS GIVEN TO BOTH DOCTORS. WILL FOLLOW UP
--- NOTE | 2022-01-09 10:50 | NUR ---
ENGINE WIPER NOTE PER DR BOCANEGRA OK TO TRANSFER TO ICU REPORT GIVEN TO ADDISON DEL VALLE , TRANSFERRED TO ICU ORDERED BY ACLS PROTOCOL BY BED WITH RT
--- NOTE | 2022-01-09 10:50 | NUR ---
Admit To ICU Cont close monitoring of Resp status COnt Hi Flow and NRM for optimal O2 support Pt AAOx3. responding to simple commands Cont with plan of care
[2022-01-09] MEDS ORDERED: FUROSEMIDE 40 MG/4 ML VIAL IV ONE (11:30)
--- NOTE | 2022-01-09 12:09 | NUR ---
Change HI Flow to BIPAP O2 sat @ 87-88% Cont to monitor
[2022-01-09] MEDS: IPRATROPIUM NEB FS 0.5 MG/2.5 ML AMPUL.NEB NEB SCH ×3 (16:00→23:31)
[2022-01-09] MEDS ORDERED: PIPERACILLIN /TAZOBACTAM 3.375 G in IV D5W 50 ML IV ONE (17:00)
[2022-01-09] MEDS ORDERED: ALBUTEROL HALF STRENGTH 1.25 MG/3 ML VIAL.NEB NEB SCH (17:00)
[2022-01-09] MEDS: HEPARIN SODIUM, PORCINE 5000 UNITS/1 ML VIAL SQ SCH (17:28)
[2022-01-09] MEDS: DIVALPROEX SODIUM 500 MG TABLET.DR PO SCH (17:30)
--- NOTE | 2022-01-09 19:30 | NUR ---
MAGNETIC TAPE TYPEWRITER OPERATOR NOTE, RECEIVED PATIENT IN THE BED AWAKE A/X3, AB LE TO VERBALIZE NEEDS AND CONCERNS, CONTINUE ON HIGH FLOW O2 40L 100% > 91%, NORMAL SINUS RHYTHM WITH HR 70S, MONA MIDLINE 20G ON ON SOFT RESTRAIN DUE TO PATIENT PULLING LINES AND TUBINGS, NOT COMPLIANT WITH CARE, NO ABNORMALITY NO CIRCULATIONS COMPROMISED, ON ICU FOR RESCUE BIPAP, RT TO PLACE PT ON BIPAP SOON, BED IN LOW AND LOCKED POSITION, ALL SAFETY MEASURES IMPLEMENTED, WILL CONTINUE TO MONITOR CLOSELY.
[2022-01-09] MEDS: ATORVASTATIN 40 MG TABLET PO SCH (21:26)
--- NOTE | 2022-01-09 23:10 | NUR ---
INFORMED DR FRANCO THAT PATIENTS BLOOD PRESSURE IS BEING 80-90S, MORE CONSISTENT WITH 80S AT THIS TIME, AND HR NOTED 500-40S AT THIS TIME, AND THAT PATIENT IN IN CARDIZEM 300MG QAM, PLUS IV LASIX WA GIVEN ONCE DURING THE DAY AND PATIENT IS ALSO IN PSYCH MEDICATIONS, AND PER DR FRANCO TO HOLD CARDIZEM AND START MIDODRINE 10MG Q8HR PRN FOR SBP <90, ORDER NOTED AND CARRIED OUT, PATIENT ASYMPTOMATIC, A/O AND TALKATIVE, AND SMILING.
[2022-01-09] MEDS: MIDODRINE HCL (5MG) 5 MG TABLET PO PRN (23:17)
[2022-01-09] MEDS: ALBUTEROL HALF STRENGTH 1.25 MG/3 ML VIAL.NEB NEB SCH (23:31)
[2022-01-10] VITALS (36 sets, daily range): BP systolic 80–130; BP diastolic 25–75
[2022-01-10] MEDS: PIPERACILLIN /TAZOBACTAM 3.375 G in IV D5W 100 ML IV SCH ×3 (00:40→16:09)
[2022-01-10] MEDS: ALBUTEROL HALF STRENGTH 1.25 MG/3 ML VIAL.NEB NEB SCH ×6 (02:57→23:44)
[2022-01-10] MEDS: IPRATROPIUM NEB FS 0.5 MG/2.5 ML AMPUL.NEB NEB SCH ×6 (02:57→23:43)
--- NOTE | 2022-01-10 04:57 | NUR ---
PER DR CHERY TO HOLD SEROQUEL, LAST NIGHT WAS HELD IT AND THIS MORNING, BLOOD PRESSURE, AFTER MIDODRINE AT MIDNIGHT BLOOD PRESSURE IMPROVED, THIS MORNING CONTINUE 80S-90S 90/54 AT THIS TIME, NO SEROQUEL ADMINISTERED AT THIS TIME.
[2022-01-10] MEDS: QUETIAPINE FUMARATE 25 MG TABLET PO SCH ×3 (05:00→21:21)
--- NOTE | 2022-01-10 06:25 | NUR ---
END OF SHIFT, PATIENT BED SLEEPING ST THIS TIME, CONTINUE ON BIPAP, AND WILL CONTINUE WITH HF, NORMAL SINUS RHYTHM TO SINUS THERESA DURING THE NIGHT, WITH THE LOWEST 40S NOT SUSTAINED, MD AWARE, MONA MIDLINE 20G PATENT AND INTACT,CONTINUE ON SOFT RESTRAIN, NO ABNORMALITY NO CIRCULATIONS COMPROMISED, WITH BLOOD PRESSURE IN THE LOWEST SIDE, SEROQUEL HELD IT, AND NEW ORDER FOR MIDODRINE 10MG Q8HR PRN FOR SBP< 90, BED LOCKED AND LOWEST POSITION, ALL SAFETY MEASURES IMPLEMENTED, WILL CONTINUE TO MONITOR CLOSELY.
--- NOTE | 2022-01-10 06:25 | NUR ---
WILL ENDORSE CONTINUITY OF CARE TO ONCOMING NURSE.
--- NOTE | 2022-01-10 08:24 | NUR ---
PT. IS AWAKE AND ALERT PLACED INTO HIGH FLOW @ 40 L FLOW / 80% FIO2 ORDER. RN NOTIFIED ON CHANGES MADE. SPO2 95% RR 12 BPM HR 74 - 78 BPM NO INCREASE WORK OF BREATHING NOTED. Addendum: 01/10/22 at 0826 by LOI WERNER RT Amended: Links added.
[2022-01-10] MEDS: ARIPIPRAZOLE 5 MG TABLET PO SCH ×2 (08:27→16:08)
[2022-01-10] MEDS: DIVALPROEX SODIUM 250 MG TABLET.DR PO SCH (08:27)
[2022-01-10] MEDS: EZETIMIBE 10 MG TABLET PO SCH (08:27)
[2022-01-10] MEDS: FLUDROCORTISONE 0.1 MG TABLET PO SCH (08:27)
[2022-01-10] MEDS: ASPIRIN 81 MG TAB.CHEW PO SCH (08:27)
[2022-01-10] MEDS: FLUCONAZOLE (100 MG) 100 MG TABLET PO SCH (08:27)
[2022-01-10] MEDS: PANTOPRAZOLE 40 MG TABLET.DR PO SCH (08:27)
[2022-01-10] MEDS: DILTIAZEM HCL CD 300 MG PO SCH (08:28)
[2022-01-10] MEDS: CLOTRIMAZOLE 1% 15 GM TUBE TP SCH ×2 (08:28→16:07)
[2022-01-10] MEDS: HEPARIN SODIUM, PORCINE 5000 UNITS/1 ML VIAL SQ SCH ×2 (08:38→16:06)
[2022-01-10 08:51] LABS: ABG BASE EXCESS 17.4 mmol/L; ABG OXYGEN SATURATION 92.1 % (92.0-98.5); ABG PCO2 64.1 mmHg (35.0-45.0); ABG PH 7.449 (7.350-7.450); ABG PO2 63.9 mmHg (75.0-100.0); AaDO2 439.2 mmHg; COHb 0.1 % (0.5-1.5); MetHb 0.2 % (0.0-1.5); O2Hb 91.8 % (94.0-97.0); SITE, ABG Right Radial; VENT MODE, BG HIGH FLOW 40 L / 80% FIO2
[2022-01-10] MEDS: DIVALPROEX SODIUM 500 MG TABLET.DR PO SCH (17:12)
--- NOTE | 2022-01-10 17:22 | NUR ---
pt refused lovenox injection 2 times today. pt states she will accept tomorrow.
--- NOTE | 2022-01-10 18:04 | NUR ---
RN CLOSING NOTES PT IS RESTI NG IN BED, A/O X4 ON HI FLOW NC SATING AT 100%. TELE READS SR-SB. VIGIL CATH IN PLACE DRAINING. SKIN INTACT, IV ACCESS ON MONA MIDLINE. ZOSYN RUNNING AT 25ML/HR. ALL SAFETY MEASURES IN PLACE, FALL PRECAUTIONS IN PLACE. WILL ENDORSE TO MEDICAL AFFAIRS SPECIALIST RN FOR SHAUNA.
--- NOTE | 2022-01-10 19:54 | NUR ---
VINE FRUIT FARMING SUPERVISOR. RECEIVED THE PT REST IN BED. AWAKE, ALERT, FOLLOW COMMANDS. RESEARCH & INSIGHTS EXECUTIVE SHOWING NSR. OXYGRN HIGH FLOW 40L, 80%. SAT 98%. NO ACUTE DISTRESS NOTED. IV RT UPPER ARM MID LINE. RT GROIN HD CATH. FC PATENT. URINE DRAINING, HOB ELEVATED. WILL CONTINUE TO MONITOR VITALS.
[2022-01-10] MEDS: ATORVASTATIN 40 MG TABLET PO SCH (21:21)
[2022-01-11] VITALS (29 sets, daily range): BP systolic 84–137; BP diastolic 47–89
[2022-01-11] MEDS: PIPERACILLIN /TAZOBACTAM 3.375 G in IV D5W 100 ML IV SCH ×3 (01:30→16:11)
[2022-01-11] MEDS: IPRATROPIUM NEB FS 0.5 MG/2.5 ML AMPUL.NEB NEB SCH ×6 (03:28→23:26)
[2022-01-11] MEDS: ALBUTEROL HALF STRENGTH 1.25 MG/3 ML VIAL.NEB NEB SCH ×6 (03:28→23:26)
--- NOTE | 2022-01-11 03:42 | NUR ---
CHIEF OF SURGERY. AM CARE GIVEN. REMAINING SAME OXYGEN TOLERATED WELL. SAT 98%, NO ACUTE DISTRESS NOTED. MATHEMATICAL ENGINEER SHOWING NSR, IV RT UPPER ARM MID LINE . TKO RUNNING. FC PATENT. URINE DRAINING. TURN AND REPOSITION Q2H. WILL CONTINUE TO MONITOR VITALS.
[2022-01-11] MEDS: QUETIAPINE FUMARATE 25 MG TABLET PO SCH ×3 (05:16→21:22)
--- NOTE | 2022-01-11 07:23 | NUR ---
RN OPENING NOTES PT IS IN BED RESTING EATING BREAKFAST, A/O X 4, ON HI FLOW NC SATING AT 96%. TELE READS SR IN 80'S. FC IN PLACE DRAINING. IV ACCESS ON MONA MIDLINE, NO FLUIDS RUNNING. ALL SAFETY MEASURES IN PLACE, FALL PRECAUTIONS IN PLACE. WILL CONT TO MONITOR THROUGHOUT SHIFT.
[2022-01-11] MEDS: EZETIMIBE 10 MG TABLET PO SCH (08:13)
[2022-01-11] MEDS: DIVALPROEX SODIUM 250 MG TABLET.DR PO SCH (08:13)
[2022-01-11] MEDS: ARIPIPRAZOLE 5 MG TABLET PO SCH ×2 (08:13→16:11)
[2022-01-11] MEDS: FLUCONAZOLE (100 MG) 100 MG TABLET PO SCH (08:13)
[2022-01-11] MEDS: PANTOPRAZOLE 40 MG TABLET.DR PO SCH (08:13)
[2022-01-11] MEDS: ASPIRIN 81 MG TAB.CHEW PO SCH (08:14)
[2022-01-11] MEDS: FLUDROCORTISONE 0.1 MG TABLET PO SCH (08:14)
[2022-01-11] MEDS: DILTIAZEM HCL CD 300 MG PO SCH (08:15)
[2022-01-11] MEDS: CLOTRIMAZOLE 1% 15 GM TUBE TP SCH ×2 (08:16→16:09)
[2022-01-11] MEDS: HEPARIN SODIUM, PORCINE 5000 UNITS/1 ML VIAL SQ SCH ×2 (08:17→16:08)
--- NOTE | 2022-01-11 12:45 | NUR ---
pt refused blood draw at 1245.
[2022-01-11 15:47] LABS: CHLORIDE 100 mmol/L (98-107); CREATININE 1.1 mg/dL (0.6-1.3); GLUCOSE 228 mg/dL (74-106); POTASSIUM 3.4 mmol/L (3.5-5.1); SODIUM SERUM 144 mmol/L (136-145); UREA NITROGEN, BLOOD 14 mg/dL (7-18)
[2022-01-11 15:51] LABS: CARBON DIOXIDE 46 mmol/L (21-32)
--- NOTE | 2022-01-11 17:00 | NUR ---
PAYMENT SPECIALISTSTATE PATROL OFFICER OF CARE NOTE: RECEIVED PT. FROM CARE OF RN PAWAN. REPORT GIVEN AT BEDSIDE. PT. IN BED, AWAKE AOX4. NO COMPLAINTS OF PAIN/DISCOMFORT AT THIS TIME. ON HI FLOW NC AT 40LPM, 80% FIO2. BREATHING EVEN AND UNLABORED SATURATING AT 93%. MANUFACTURING OPERATIONS MANAGER READS NSR WITH HR OF 88 BPM AT THIS TIME. HAS VIGIL CATH DRAINING CLEAR YELLOW URINE VIA GRAVITY. IV ACCESS ON MONA MIDLINE WITH ZOSYN RUNNING AT 25ML/HR. SAFETY MEASURES IN PLACE: BED IN LOWEST AND LOCKED POSITION, HOB ELEVATED, CALL LIGHT WITHIN REACH, BED ALARM ON. WILL TURN AND REPOSITION AT LEAST Q2H. WILL CONTINUE TO MONITOR PT. FOR ANY CHANGES.
[2022-01-11] MEDS: DIVALPROEX SODIUM 500 MG TABLET.DR PO SCH (17:13)
--- NOTE | 2022-01-11 19:15 | NUR ---
SENIOR CORPORATE ACCOUNTANT CLOSING NOTE: PT. REMAINS IN BED, AWAKE AOX4. NO COMPLAINTS OF PAIN/DISCOMFORT AT THIS TIME. ON HI FLOW NC AT 40LPM, NOW AT 100% FIO2. SATURATING AT 96%. BREATHING EVEN AND UNLABORED. HOISTING LABORER READS NSR WITH HR OF 84 BPM AT THIS TIME. VIGIL CATH WITH CLEAR YELLOW URINE OUTPUT OF 380ML. IV ACCESS ON MONA MIDLINE WITH ZOSYN RUNNING AT 25ML/HR. SAFETY MEASURES MAINTAINED: BED IN LOWEST AND LOCKED POSITION, HOB ELEVATED, CALL LIGHT WITHIN REACH, BED ALARM ON. TURNED AND REPOSITIONED. WILL ENDORSE CONTINUITY OF CARE TO BLACKSMITH HELPER RN.
--- NOTE | 2022-01-11 19:45 | NUR ---
MULTIPLE LAUNCH ROCKET SYSTEM CREWMEMBER . Initial Assessment. Received the pt Rest in bed. Awake, Alert. Follow commands. Clinical Research Director Showing NSR Oxygen high Flow 40 L 100%. sat 95%. no Acute distress noted. iv RT upper Arm Mid line. TKO running. F/C patent. urine draining. HOB elevated. will continue to monitor vitals.
[2022-01-11] MEDS: IV NS 0.9% 250 ML IV PRN (21:20)
[2022-01-11] MEDS: ATORVASTATIN 40 MG TABLET PO SCH (21:22)
[2022-01-12] VITALS (34 sets, daily range): BP systolic 80–132; BP diastolic 48–86
[2022-01-12] MEDS: PIPERACILLIN /TAZOBACTAM 3.375 G in IV D5W 100 ML IV SCH ×3 (01:05→17:35)
[2022-01-12] MEDS: ALBUTEROL HALF STRENGTH 1.25 MG/3 ML VIAL.NEB NEB SCH ×6 (03:32→23:15)
[2022-01-12] MEDS: IPRATROPIUM NEB FS 0.5 MG/2.5 ML AMPUL.NEB NEB SCH ×6 (03:32→23:15)
--- NOTE | 2022-01-12 03:37 | NUR ---
aviculturist. am care given. remaining same oxygen tolerated well. sat 98%. no acute distress noted, sales product manager showing nsr iv rt upper arm mid line. fc patent. urine draining. turn and reposition q2h. serena continue to monitor vitals
[2022-01-12] MEDS: QUETIAPINE FUMARATE 25 MG TABLET PO SCH ×3 (05:33→21:15)
--- NOTE | 2022-01-12 07:15 | NUR ---
PRODUCTION SUPPORT DEVELOPER OPENING NOTE: RECEIVED PT. IN BED, AWAKE AOX4. NO COMPLAINTS OF PAIN/DISCOMFORT AT THIS TIME. ON HI FLOW NC AT 40LPM, 100% FIO2. BREATHING EVEN AND UNLABORED SATURATING AT 97%. BUNCH MAKER READS NSR WITH HR OF 71 BPM AT THIS TIME. HAS VIGIL CATH DRAINING CLEAR YELLOW URINE VIA GRAVITY. IV ACCESS ON MONA MIDLINE, ON TKO. PATENT WITH NO S/S OF INFILTRATION. SAFETY MEASURES IN PLACE: BED IN LOWEST AND LOCKED POSITION, HOB ELEVATED, CALL LIGHT WITHIN REACH, BED ALARM ON. WILL TURN AND REPOSITION AT LEAST Q2H. WILL CONTINUE TO MONITOR PT. FOR ANY CHANGES.
[2022-01-12] MEDS: CLOTRIMAZOLE 1% 15 GM TUBE TP SCH ×2 (09:34→17:35)
[2022-01-12] MEDS: ARIPIPRAZOLE 5 MG TABLET PO SCH ×2 (09:35→17:35)
[2022-01-12] MEDS: ASPIRIN 81 MG TAB.CHEW PO SCH (09:35)
[2022-01-12] MEDS: FLUCONAZOLE (100 MG) 100 MG TABLET PO SCH (09:36)
[2022-01-12] MEDS: EZETIMIBE 10 MG TABLET PO SCH (09:36)
[2022-01-12] MEDS: DIVALPROEX SODIUM 250 MG TABLET.DR PO SCH (09:36)
[2022-01-12] MEDS: FLUDROCORTISONE 0.1 MG TABLET PO SCH (09:36)
[2022-01-12] MEDS: DILTIAZEM HCL CD 300 MG PO SCH (09:36)
[2022-01-12] MEDS: PANTOPRAZOLE 40 MG TABLET.DR PO SCH (09:36)
[2022-01-12] MEDS: HEPARIN SODIUM, PORCINE 5000 UNITS/1 ML VIAL SQ SCH ×2 (09:37→17:37)
[2022-01-12 12:48] LABS: ABG BASE EXCESS 16.4 mmol/L; ABG PCO2 66.8 mmHg (35.0-45.0); ABG PH 7.425 (7.350-7.450); ABG PO2 66.8 mmHg (75.0-100.0); AaDO2 579.4 mmHg; COHb 0.2 % (0.5-1.5); MetHb 0.1 % (0.0-1.5); O2Hb 91.7 % (94.0-97.0); SITE, ABG Left Brachial; VENT MODE, BG HHFNC 40L 100%
--- NOTE | 2022-01-12 12:50 | NUR ---
RT abg result given to dr daniel
[2022-01-12] MEDS: DIVALPROEX SODIUM 500 MG TABLET.DR PO SCH (17:35)
[2022-01-12] MEDS: IV NS 0.9% 250 ML IV PRN (17:50)
--- NOTE | 2022-01-12 19:20 | NUR ---
LAST MODEL DEPARTMENT SUPERVISOR CLOSING NOTE: PT. REMAINS IN BED, AWAKE AOX4. NO COMPLAINTS OF PAIN/DISCOMFORT AT THIS TIME. ON HI FLOW NC AT 40LPM, 100% FIO2 AND ON 15 L/MIN NON-REBREATHER MASK. PT. BEEN ON AND OFF NON-REBREATHER MASK THIS SHIFT WHEN DESATURATING. BREATHING EVEN AND UNLABORED AT THIS TIME, SATURATING AT 99%. SHANK CUTTER READS NSR WITH HR OF 79 BPM AT THIS TIME. VIGIL CATH DRAINED CLEAR YELLOW URINE, OUTPUT OF 340 ML THIS SHIFT. IV ACCESS ON MONA MIDLINE WITH ZOSYN RUNNING AT 25 ML/HR. PATENT WITH NO S/S OF INFILTRATION. SAFETY MEASURES MAINTAINED: BED IN LOWEST AND LOCKED POSITION, HOB ELEVATED, CALL LIGHT WITHIN REACH, BED ALARM ON. TURNED AND REPOSITIONED AT LEAST Q2H. WILL ENDORSE CONTINUITY OF CARE TO THIRD RAIL INSTALLER RN.
--- NOTE | 2022-01-12 20:00 | NUR ---
Received patient A/OX4.VSS.SR.With HF 40L FIO2 100%.Patient denies pain or sob. IVF NS infusing at TKO to MONA ML and site intact.FC to gravity.Turned and repositioned. Safety measures implemented with call light at bedside.
[2022-01-12] MEDS: ATORVASTATIN 40 MG TABLET PO SCH (21:15)
[2022-01-13] VITALS (26 sets, daily range): BP systolic 78–126; BP diastolic 31–78
[2022-01-13] MEDS: PIPERACILLIN /TAZOBACTAM 3.375 G in IV D5W 100 ML IV SCH ×3 (00:57→17:13)
[2022-01-13] MEDS: IPRATROPIUM NEB FS 0.5 MG/2.5 ML AMPUL.NEB NEB SCH ×6 (03:09→23:31)
[2022-01-13] MEDS: ALBUTEROL HALF STRENGTH 1.25 MG/3 ML VIAL.NEB NEB SCH ×6 (03:09→23:31)
[2022-01-13] MEDS: QUETIAPINE FUMARATE 25 MG TABLET PO SCH ×3 (07:12→22:23)
--- NOTE | 2022-01-13 07:19 | NUR ---
Patient resting VS remains stable.AM care done.With small pasty stool .Kept clean and dry. No significant change noted during the night.Keep safe and comfortable.All needs met.
--- NOTE | 2022-01-13 07:54 | NUR ---
RN OPENING NOTE: RECEIVED PT. IN BED, AWAKE AOX4. NO COMPLAINTS OF PAIN/DISCOMFORT AT THIS TIME. ON HI FLOW NC AT 40LPM, 100% FIO2. BREATHING EVEN AND UNLABORED. HAS VIGIL CATH DRAINING CLEAR YELLOW URINE VIA GRAVITY. IV ACCESS ON MONA MIDLINE, ON TKO. PATENT WITH NO S/S OF INFILTRATION. SAFETY MEASURES IN PLACE: BED IN LOWEST AND LOCKED POSITION, HOB ELEVATED, CALL LIGHT WITHIN REACH, BED ALARM ON.
[2022-01-13] MEDS: EZETIMIBE 10 MG TABLET PO SCH (08:19)
[2022-01-13] MEDS: FLUDROCORTISONE 0.1 MG TABLET PO SCH (08:19)
[2022-01-13] MEDS: ARIPIPRAZOLE 5 MG TABLET PO SCH ×2 (08:19→17:12)
[2022-01-13] MEDS: DIVALPROEX SODIUM 250 MG TABLET.DR PO SCH (08:19)
[2022-01-13] MEDS: PANTOPRAZOLE 40 MG TABLET.DR PO SCH (08:19)
[2022-01-13] MEDS: FLUCONAZOLE (100 MG) 100 MG TABLET PO SCH (08:19)
[2022-01-13] MEDS: ASPIRIN 81 MG TAB.CHEW PO SCH (08:19)
[2022-01-13] MEDS: HEPARIN SODIUM, PORCINE 5000 UNITS/1 ML VIAL SQ SCH ×2 (08:21→17:13)
[2022-01-13] MEDS: DILTIAZEM HCL CD 300 MG PO SCH (09:00)
[2022-01-13] MEDS: CLOTRIMAZOLE 1% 15 GM TUBE TP SCH ×2 (09:57→17:12)
--- NOTE | 2022-01-13 15:00 | NUR ---
RN NOTE RETURNED CALL MICHAEL [phone]. NO ANSWER LEFT MESSAGE TO CALL BACK.
--- NOTE | 2022-01-13 16:36 | NUR ---
Titrate Fio2 to 90% Sp02 95%
[2022-01-13] MEDS: DIVALPROEX SODIUM 500 MG TABLET.DR PO SCH (17:12)
[2022-01-13] MEDS: IV NS 0.9% 250 ML IV PRN (18:22)
--- NOTE | 2022-01-13 18:59 | NUR ---
RN CLOSING NOTE: PT. REMAINS IN BED, AWAKE AOX4. NO COMPLAINTS OF PAIN/DISCOMFORT AT THIS TIME. ON HI FLOW NC AT 40LPM, 90% FIO2 AND ON 15 L/MIN NON-REBREATHER MASK. PT. BEEN ON AND OFF NON-REBREATHER MASK THIS SHIFT WHEN DESATURATING. BREATHING EVEN AND UNLABORED AT THIS TIME. VIGIL CATH DRAINED CLEAR YELLOW URINE, OUTPUT OF 400 ML THIS SHIFT. IV ACCESS ON MONA MIDLINE WITH ZOSYN RUNNING AT 25 ML/HR. PATENT WITH NO S/S OF INFILTRATION. SAFETY MEASURES MAINTAINED: BED IN LOWEST AND LOCKED POSITION, HOB ELEVATED, CALL LIGHT WITHIN REACH, BED ALARM ON. TURNED AND REPOSITIONED AT LEAST Q2H. WILL ENDORSE CONTINUITY OF CARE TO ASSEMBLER UTILITY BUILDINGS RN.
[2022-01-13] MEDS ORDERED: NOREPINEPHRINE 8MG/250ML RTU 250 ML IV ONE (21:17)
[2022-01-13] MEDS ORDERED: NOREPINEPHRINE 8 MG in IV NS 0.9% 242 ML IV PRN (21:30)
--- NOTE | 2022-01-13 22:14 | NUR ---
ICU/BLOCK HANDLER PT'S BP CONTINUE TO HAVE PERIODS WHERE THE BP IS LOW THE REBOUNDS BACK TO A LOW NORMAL LEVEL. LEVO IS ORDERED AND ON STAND BY WHEN IT'S NEEDED. WILL CONTINUE TO MONITOR THIS PT.
[2022-01-13] MEDS: ATORVASTATIN 40 MG TABLET PO SCH (22:23)
[2022-01-14] VITALS (24 sets, daily range): BP systolic 89–145; BP diastolic 56–82
[2022-01-14] MEDS: PIPERACILLIN /TAZOBACTAM 3.375 G in IV D5W 100 ML IV SCH ×3 (01:03→17:12)
[2022-01-14] MEDS: IPRATROPIUM NEB FS 0.5 MG/2.5 ML AMPUL.NEB NEB SCH ×7 (03:36→23:55)
[2022-01-14] MEDS: ALBUTEROL HALF STRENGTH 1.25 MG/3 ML VIAL.NEB NEB SCH ×7 (03:36→23:55)
[2022-01-14] MEDS: QUETIAPINE FUMARATE 25 MG TABLET PO SCH ×3 (05:59→21:34)
--- NOTE | 2022-01-14 07:00 | NUR ---
SYSTEM TECHNOLOGIST NOTE RECEIVED PATIENT IN BED RESTING ALERT ORIENTED X4 EPISODE OF CONFUSION,ON HIGH FLOW OXYGEN 40L 80% O2:91% IV SITE IS ON RIGHT UPPER ARM MIDLINE INTACT PATENT VIGIL IN PLACE URINE DRAINING YELLOW BY GRAVITY,SAFETY MEASURE IMPLEMENT BED IN LOW POSITION AND LOCKED HEAD OF THE BED ELEVATED,CALL LIGHT WITHIN REACH CONTINUE TO MONITOR.
[2022-01-14] MEDS: DILTIAZEM HCL CD 300 MG PO SCH ×2 (09:00→09:07)
[2022-01-14] MEDS: EZETIMIBE 10 MG TABLET PO SCH (09:06)
[2022-01-14] MEDS: ASPIRIN 81 MG TAB.CHEW PO SCH (09:06)
[2022-01-14] MEDS: ARIPIPRAZOLE 5 MG TABLET PO SCH ×2 (09:06→17:12)
[2022-01-14] MEDS: PANTOPRAZOLE 40 MG TABLET.DR PO SCH (09:07)
[2022-01-14] MEDS: DIVALPROEX SODIUM 250 MG TABLET.DR PO SCH (09:07)
[2022-01-14] MEDS: FLUDROCORTISONE 0.1 MG TABLET PO SCH (09:07)
[2022-01-14] MEDS: HEPARIN SODIUM, PORCINE 5000 UNITS/1 ML VIAL SQ SCH ×2 (09:10→17:13)
[2022-01-14] MEDS: CLOTRIMAZOLE 1% 15 GM TUBE TP SCH ×2 (09:23→17:14)
[2022-01-14] MEDS: DIVALPROEX SODIUM 500 MG TABLET.DR PO SCH (17:12)
[2022-01-14] MEDS: DOCUSATE SODIUM LIQ 100 MG/10 ML UDC NG SCH (17:12)
--- NOTE | 2022-01-14 18:44 | NUR ---
RN NOTE PATIENT REMAINS ALERT ORIENTED X3-4 VERBALLY RESPONSIVE EPISODE OF CONFUSION ON HIGH FLOW OXYGEN 40L FIO2:80% O2:94%,IV SITE IS ON LEFT UPPER ARM MIDLINE INTACT PATENT,VIGIL CATH IN PLACE,ALL DUE MEDS GIVEN MD ORDERED KEPT CLEAN AND DRY ALL THE TIME,KEPT HEAD OF THE BED ELEVATED,KEPT CALL LIGHT WITHIN REACH,ALL NEEDS MET ENDORSE NEXT COMING SHIFT FOR CONTINUATION OF CARE
[2022-01-14] MEDS: ATORVASTATIN 40 MG TABLET PO SCH (21:34)
[2022-01-15] VITALS (14 sets, daily range): BP systolic 88–142; BP diastolic 45–82
[2022-01-15] MEDS: PIPERACILLIN /TAZOBACTAM 3.375 G in IV D5W 100 ML IV SCH ×3 (00:05→16:30)
[2022-01-15] MEDS: ALBUTEROL HALF STRENGTH 1.25 MG/3 ML VIAL.NEB NEB SCH ×5 (03:30→20:22)
[2022-01-15] MEDS: IPRATROPIUM NEB FS 0.5 MG/2.5 ML AMPUL.NEB NEB SCH ×5 (03:30→20:22)
[2022-01-15] MEDS: QUETIAPINE FUMARATE 25 MG TABLET PO SCH ×3 (05:37→21:21)
[2022-01-15] MEDS: ARIPIPRAZOLE 5 MG TABLET PO SCH ×2 (08:24→16:13)
[2022-01-15] MEDS: DIVALPROEX SODIUM 250 MG TABLET.DR PO SCH (08:24)
[2022-01-15] MEDS: EZETIMIBE 10 MG TABLET PO SCH (08:24)
[2022-01-15] MEDS: DILTIAZEM HCL CD 300 MG PO SCH (08:24)
[2022-01-15] MEDS: HEPARIN SODIUM, PORCINE 5000 UNITS/1 ML VIAL SQ SCH ×2 (08:28→16:16)
[2022-01-15] MEDS: FLUDROCORTISONE 0.1 MG TABLET PO SCH (08:29)
[2022-01-15] MEDS: ASPIRIN 81 MG TAB.CHEW PO SCH (08:29)
[2022-01-15] MEDS: CLOTRIMAZOLE 1% 15 GM TUBE TP SCH ×2 (08:29→16:28)
[2022-01-15] MEDS: PANTOPRAZOLE 40 MG TABLET.DR PO SCH (08:29)
[2022-01-15] MEDS: DOCUSATE SODIUM LIQ 100 MG/10 ML UDC NG SCH ×3 (09:00→16:13)
[2022-01-15] MEDS: DIVALPROEX SODIUM 500 MG TABLET.DR PO SCH (17:25)
--- NOTE | 2022-01-15 19:00 | NUR ---
J LUIS RN NOTE NOTED PT IS SLIDING DOWN, REPOSITIONED HER. NOTED PT PULLED OUT MIDLINE AND ALSO REMOVED THE N/C, PT STATES "I DIDN'T DO ANYTHING". PT IS A/O X 2 CONFUSED AT TIMES. NO DISTRESS OR DISCOMFORT NOTED. DENIES PAIN. NO BLEEDING NOTED. ON TELE SR HR 84. WILL REINSERT NEW IV LINE LATER. REMINDED PT NOT TO REMOVE ANY LINE AND TUBING. PT STATES "OK, WON'T DO THAT AGAIN". F/C INTACT AND PATENT DRAINING YELLOWISH COLOR URINE. KEPT HER DRY AND CLEAN. ALL NEEDS ATTENDED. CONTINUE TO MONITOR HER.
[2022-01-15] MEDS: ATORVASTATIN 40 MG TABLET PO SCH (21:21)
--- NOTE | 2022-01-15 22:00 | NUR ---
J LUIS RN NOTE PT IS HARD STICK, ICU CHARGE NURSE MARIIA AGUILAR, INSERTED 22 G IN LT WRIST WITH GOOD AMOUNT OF BLOOD. CONTINUE TO MONITOR HER.
[2022-01-16] VITALS (7 sets, daily range): BP systolic 111–130; BP diastolic 66–86
[2022-01-16] MEDS: ALBUTEROL HALF STRENGTH 1.25 MG/3 ML VIAL.NEB NEB SCH ×7 (00:16→23:30)
[2022-01-16] MEDS: IPRATROPIUM NEB FS 0.5 MG/2.5 ML AMPUL.NEB NEB SCH ×7 (00:16→23:30)
[2022-01-16] MEDS: PIPERACILLIN /TAZOBACTAM 3.375 G in IV D5W 100 ML IV SCH ×3 (00:44→16:11)
[2022-01-16] MEDS: QUETIAPINE FUMARATE 25 MG TABLET PO SCH ×3 (05:25→21:10)
--- NOTE | 2022-01-16 06:25 | NUR ---
J LUIS RN NOTE PT IN BED ASLEEP, AROSABLE. NO DISTRESS OR DISCOMFORT NOTED. DENIES PAIN. ON TELE SR. ALL NEEDS ATTENDED. SIDE RAILS UP X 3 AND CALL LIGHT WITHIN REACH. WILL ENDORSE TO DAY SHIFT NURSE FOR CONTINUE TO CARE.
--- NOTE | 2022-01-16 07:25 | NUR ---
ARTIST SCIENTIFIC OPENING NOTE: RECEIVED PT. IN BED, ALERT AND VERBALLY RESPONSIVE. NO COMPLAINTS OF PAIN/DISCOMFORT AT THIS TIME. ON 4L 02 VIA NC, NO SOB NOTED, NOT IN DISTRESS. DIRECTOR CORPORATE COMMUNICATIONS READING SR WITH HR OF 70 BPM AT THIS TIME. VIGIL CATH DRAINING CLEAR YELLOW URINE VIA GRAVITY. IV ACCESS ON LEFT WRIST ON TKO. PATENT AND INTACT WITH NO S/S OF INFILTRATION. SAFETY MEASURES IN PLACE: BED IN LOWEST AND LOCKED POSITION, HOB ELEVATED, CALL LIGHT WITHIN REACH, BED ALARM ON. WILL CONTINUE TO MONITOR PT.
[2022-01-16] MEDS: ASPIRIN 81 MG TAB.CHEW PO SCH (08:39)
[2022-01-16] MEDS: FLUDROCORTISONE 0.1 MG TABLET PO SCH (08:39)
[2022-01-16] MEDS: ARIPIPRAZOLE 5 MG TABLET PO SCH ×2 (08:39→16:11)
[2022-01-16] MEDS: EZETIMIBE 10 MG TABLET PO SCH (08:39)
[2022-01-16] MEDS: DIVALPROEX SODIUM 250 MG TABLET.DR PO SCH (08:39)
[2022-01-16] MEDS: DOCUSATE SODIUM LIQ 100 MG/10 ML UDC NG SCH ×3 (08:39→16:10)
[2022-01-16] MEDS: PANTOPRAZOLE 40 MG TABLET.DR PO SCH (08:39)
[2022-01-16] MEDS: ERGOCALCIFEROL (VITAMIN D 2) 50,000 UNIT CAPSULE PO SCH (08:40)
[2022-01-16] MEDS: DILTIAZEM HCL CD 300 MG PO SCH (08:40)
[2022-01-16] MEDS: HEPARIN SODIUM, PORCINE 5000 UNITS/1 ML VIAL SQ SCH ×2 (08:42→16:12)
[2022-01-16 09:06] LABS: ABG BASE EXCESS 19.2 mmol/L; ABG OXYGEN SATURATION 78.6 % (92.0-98.5); ABG PCO2 71.2 mmHg (35.0-45.0); ABG PH 7.429 (7.350-7.450); ABG PO2 43.1 mmHg (75.0-100.0); COHb 0.3 % (0.5-1.5); MetHb 0.2 % (0.0-1.5); O2Hb 78.2 % (94.0-97.0); SITE, ABG Right Radial; VENT MODE, BG 5l nc
[2022-01-16] MEDS: CLOTRIMAZOLE 1% 15 GM TUBE TP SCH ×2 (09:43→16:34)
[2022-01-16] MEDS ORDERED: acetaZOLAMIDE SODIUM 500 MG/VIAL VIAL IV ONE (10:00)
--- NOTE | 2022-01-16 10:52 | NUR ---
RN NOTES RECEIVED NEW ORDER FROM DR. CABEZAS RT ON THE BEDSIDE, PATIENT NOTED ON VENTURI MASK 50%. PATIENT ALERT AND VERBALLY RESPONSIVE. PATIENT NOTED TALKING ON THE PHONE WITH FAMILY MEMBER. WILL CONTINUE TO MONITOR PATIENT. Addendum: 01/16/22 at 1059 by KEN UGARTE RN saturation onveturi mask fio2 50% saturation 89%
--- NOTE | 2022-01-16 13:30 | NUR ---
PERSONNEL CONSULTANT NOT ATE LUNCH ,ALL NEEDS ATTENDED WILL CONT TO MONITOR. NO SOB NOTED AT THIS TIME,
--- NOTE | 2022-01-16 15:24 | NUR ---
shanae petty note patient remove Barron cath refused to placed back , keep clean dry Addendum: 01/16/22 at 1530 by KEN UGARTE RN called to Rukhsana monte notified that Barron was removed by patient and refused to place back no new order given at this time
[2022-01-16] MEDS: DIVALPROEX SODIUM 500 MG TABLET.DR PO SCH (17:14)
--- NOTE | 2022-01-16 18:14 | NUR ---
RN CLOSING NOTE: PATIENT IN BED AWAKE, ALERT AND VERBALLY RESPONSIVE. NO COMPLAINTS OF PAIN/DISCOMFORT AT THIS TIME. ON VENTURI MASK 15L 50% SATURATING @89-91%, NO SOB NOTED, NOT IN DISTRESS. MANAGER ONLINE READING SR WITH HR OF 93. IV ACCESS ON LEFT WRIST ON TKO. PATENT AND INTACT WITH NO S/S OF INFILTRATION. SAFETY MEASURES IN PLACE: BED IN LOWEST AND LOCKED POSITION, HOB ELEVATED, CALL LIGHT WITHIN REACH, BED ALARM ON. WILL ENDORSE TO VENDING TECHNICIAN NURSE FOR SHAUNA.
--- NOTE | 2022-01-16 19:23 | NUR ---
FACTORY WORKER NOTE PATIENT AT RISK TO REMOVE O2 AT RISK FOE RESPIRATORY DISTRESS, SOFT RESTRAIN PLACED , ORDERED BY EMEKA ADKINS , WILL F\U
--- NOTE | 2022-01-16 20:00 | NUR ---
J LUIS RN NOTE PT IN BED ASLEEP, EASILY AROUSABLE. NO DISTRESS OR DISCOMFORT NOTED. DENIES PAIN. PT ON VENTURI MASK FIO2 50%.O2 SAT 89%. KEPT HOB ELEVATED. KEPT HER DRY AND CLEAN. ON TELE MONITOR SR HR 84. PT REMAIN ON BILATERAL SOFT WRIST RESTRAINTS. LT WRIST SL #22 G INTACT AND PATENT. KEPT HER DRY AND CLEAN. REPOSITION HER Q2H. SIDE RAILS UP X 2 AND CALL LIGHT WITHIN REACH. VSS. CONTINUE TO MONITOR HER.
[2022-01-16] MEDS: ATORVASTATIN 40 MG TABLET PO SCH (21:10)
--- NOTE | 2022-01-16 23:00 | NUR ---
J LUIS RN NOTE RT CHANGED VENTURI MASK FOR N/C ON O2 4L. O2 SAT 89%. REPOSITION THE PT IN BED. CONTINUE TO MONITOR HER.
[2022-01-17] VITALS: BP 113/68
[2022-01-17] MEDS: PIPERACILLIN /TAZOBACTAM 3.375 G in IV D5W 100 ML IV SCH ×3 (00:41→18:55)
[2022-01-17] MEDS: IPRATROPIUM NEB FS 0.5 MG/2.5 ML AMPUL.NEB NEB SCH ×6 (04:03→23:45)
[2022-01-17] MEDS: ALBUTEROL HALF STRENGTH 1.25 MG/3 ML VIAL.NEB NEB SCH ×6 (04:03→23:45)
[2022-01-17] MEDS: QUETIAPINE FUMARATE 25 MG TABLET PO SCH ×3 (05:00→21:00)
--- NOTE | 2022-01-17 05:08 | NUR ---
J LUIS RN NOTE PT SAT IS LOW ON 4L N/C SAT 85%. RT AT BED SIDE. B TX GIVEN. ALSO PT WAS PUT BACK TO VENTURI MASK FIO2 50% AT 15L. O2 CAME BACK UP TO 89%. ERON MUÑOZ INFORMED AND RECEIVED NEW ORDER TO STAT ABG. ORDER NOTED AND CARRIED OUT.
--- NOTE | 2022-01-17 05:30 | NUR ---
J LUIS RN NOTE ABG RESULT CAME PH [phone], PCO2 83.9, PO2 71 HCO3 39.3. CHARGE MADE AWARE, ALSO DIXON INFORMED ERON MUÑOZ ABOUT ABG RESULT. PER WANDA INFORM DR CABEZAS IN THE MORNING. NO NEW ORDER AT THIS TIME. PT IS ON SIMPLE MASK O2 8L RT SWITCHED FROM VENTURI TO SIMPLE MASK O2 SAT 89% AT THIS TIME. CONTINUE TO MONITOR HER.
[2022-01-17 05:32] LABS: ABG BASE EXCESS 10.8 mmol/L; ABG PCO2 83.9 mmHg (35.0-45.0); ABG PH 7.289 (7.350-7.450); COHb 0.3 % (0.5-1.5); MetHb 0.3 % (0.0-1.5); O2Hb 91.7 % (94.0-97.0); SITE, ABG Right Radial; VENT MODE, BG 10L SIMPLE MASK
[2022-01-17 06:00] VITALS: BP 114/63
--- NOTE | 2022-01-17 07:15 | NUR ---
RN OPENING NOTE: PATIENT IN BED AWAKE, ALERT AND VERBALLY RESPONSIVE. NO COMPLAINTS OF PAIN/DISCOMFORT AT THIS TIME. ON VENTURI MASK 15L 50% SATURATING @92%, NO SOB NOTED, NOT IN DISTRESS. SUPERVISOR PUMPING READING SR WITH HR OF 92. IV ACCESS ON LEFT WRIST ON TKO. PATENT AND INTACT WITH NO S/S OF INFILTRATION. SAFETY MEASURES IN PLACE: BED IN LOWEST AND LOCKED POSITION, HOB ELEVATED, CALL LIGHT WITHIN REACH, BED ALARM ON. WILL CONTINUE TO MONITOR THROUGHOUT SHIFT.
[2022-01-17 07:16] LABS: CALCIUM, SERUM 8.9 mg/dL (8.5-10.1); CHLORIDE 101 mmol/L (98-107); CREATININE 0.8 mg/dL (0.6-1.3); GLUCOSE 129 mg/dL (74-106); MAGNESIUM 1.7 mg/dL (1.8-2.4); PHOSPHORUS 3.6 mg/dL (2.5-4.9); POTASSIUM 3.1 mmol/L (3.5-5.1); SODIUM SERUM 143 mmol/L (136-145); UREA NITROGEN, BLOOD 5 mg/dL (7-18)
[2022-01-17 07:23] LABS: CARBON DIOXIDE 44 mmol/L (21-32)
[2022-01-17 07:37] LABS: BASOPHILS % (AUTO) 0.3 % (0.0-2.0); EOSINOPHILS % (AUTO) 1.5 % (0.0-6.0); HEMATOCRIT 24 % (33-45); HEMOGLOBIN 7.6 g/dL (11.5-14.8); LYMPHOCYTES # (AUTO) 1.4 K/uL (0.8-4.8); LYMPHOCYTES % (AUTO) 21.3 % (20.0-44.0); MEAN CORPUSCULAR HGB CONC 32 g/dl (31.0-36.0); MEAN CORPUSCULAR VOLUME 101 fL (82-100); MONOCYTES # (AUTO) 0.4 K/uL (0.1-1.30); MONOCYTES % (AUTO) 6.2 % (2.0-12.0); NEUTROPHILS # (AUTO) 4.7 K/uL (1.8-8.9); NEUTROPHILS % (AUTO) 70.7 % (43.0-81.0); PLATELET COUNT (AUTO) 339 K/uL (150-450); RED BLOOD CELL COUNT(AUTO) 2.36 MIL/uL (4.0-5.2); WHITE BLOOD COUNT (AUTO) 6.7 K/uL (4.3-11.0)
[2022-01-17 08:00] VITALS: BP 119/69
[2022-01-17] MEDS ORDERED: Magnesium 1GM/D5W 100ML PREMIX PIGGYBACK IV ONE ×2 (10:00→13:00)
[2022-01-17] MEDS: DILTIAZEM HCL CD 300 MG PO SCH (10:25)
[2022-01-17] MEDS: ASPIRIN 81 MG TAB.CHEW PO SCH (10:25)
[2022-01-17] MEDS: PANTOPRAZOLE 40 MG TABLET.DR PO SCH (10:25)
[2022-01-17] MEDS: FLUDROCORTISONE 0.1 MG TABLET PO SCH (10:25)
[2022-01-17] MEDS: ARIPIPRAZOLE 5 MG TABLET PO SCH ×2 (10:26→18:55)
[2022-01-17] MEDS: DOCUSATE SODIUM LIQ 100 MG/10 ML UDC NG SCH (10:26)
[2022-01-17] MEDS: EZETIMIBE 10 MG TABLET PO SCH (10:27)
[2022-01-17] MEDS: DIVALPROEX SODIUM 250 MG TABLET.DR PO SCH (10:27)
[2022-01-17 11:28] LABS: ABG BASE EXCESS 15.2 mmol/L; ABG OXYGEN SATURATION 90.5 % (92.0-98.5); ABG PCO2 90.5 mmHg (35.0-45.0); ABG PH 7.305 (7.350-7.450); ABG PO2 63.5 mmHg (75.0-100.0); AaDO2 205.9 mmHg; COHb 0.3 % (0.5-1.5); MetHb 0.2 % (0.0-1.5); SITE, ABG Right Brachial; VENT MODE, BG 8LPM SIMPLE MASK
[2022-01-17] MEDS: IV NS 0.9% 250 ML IV PRN (12:13)
[2022-01-17] MEDS: CLOTRIMAZOLE 1% 15 GM TUBE TP SCH ×2 (12:15→19:05)
[2022-01-17] MEDS ORDERED: IV NS 0.9% 250 ML IV PRN (12:30)
--- NOTE | 2022-01-17 12:30 | NUR ---
RT NOTE POST ABG RESULTS SHOWN TO DR. ROBINS. PLACED PT ON BIPAP WITH SETTINGS PER MD ORDER. CECILIA DEL VALLE NOTIFIED AND AWARE. Addendum: 01/17/22 at 1534 by TESS HARRIS RT Amended: Links added.
[2022-01-17] MEDS: DOCUSATE SODIUM 100 MG CAPSULE PO SCH ×2 (13:00→18:55)
[2022-01-17 13:22] LABS: BAND % (MANUAL) 4 % (0.0-5.0); EOSINOPHILS % (MANUAL) 3 % (0-4); LYMPHOCYTES % (MANUAL) 14 % (16-48); METAMYELOCYTES % 4 % (0-0); MONOCYTES % (MANUAL) 6 % (0-11.0); MYELOCYTES % 5 % (0-0); NEUTROPHILS % (MANUAL) 64 (42-76)
[2022-01-17] MEDS: POTASSIUM CL. PREMIX PERIPHER. 50 ML IV SCH ×6 (13:55→18:08)
--- NOTE | 2022-01-17 14:00 | NUR ---
RN NOTE DID NOT ADMINISTER PO MEDS AT THIS TIME PATIENT IS ON BIPAP. CHARGE NURSE IS AWARE.
--- NOTE | 2022-01-17 14:03 | NUR ---
per nursing sup will keep pt. for now in shanae as icu overflow.
[2022-01-17 15:40] VITALS: BP 119/69
[2022-01-17 16:00] VITALS: BP 108/65
--- NOTE | 2022-01-17 17:09 | NUR ---
RN NOTE GAVE 1 DOSE OF MAGNESIUM. CHARGE NURSE AND PHARMACY ARE AWARE.
[2022-01-17] MEDS: DIVALPROEX SODIUM 500 MG TABLET.DR PO SCH (18:56)
--- NOTE | 2022-01-17 19:30 | NUR ---
RN OPENING NOTE: RECEIVED REPORT FROM ELIGIO BROOKS FOR [facility]. PATIENT IN BED AWAKE, A/O X 3, VERBALLY RESPONSIVE. NO COMPLAINTS OF PAIN/DISCOMFORT AT THIS TIME. ON SIMPLE MASK AT 8LPM SATURATING AT 93%, NO SOB NOTED, NOT IN ANY FORM ACUTE DISTRESS. BIOMETRICIAN READING SHOWS SR WITH HR IN 80s. IV ACCESS ON LEFT WRIST RUNNING NS TKO. PATENT AND INTACT WITH NO S/S OF INFILTRATION. SOFT WRIST RESTRAINTS NOTED ON BILATERAL HANDS. NO SIGNS OF CIRCULATIONS ISSUES OBSERVED. ALL SAFETY MEASURES IN PLACE: BED IN LOWEST AND LOCKED POSITION, HOB ELEVATED, CALL LIGHT WITHIN REACH, BED ALARM ON. WILL CONTINUE TO MONITOR T/O SHIFT.
[2022-01-17 20:00] VITALS: BP 119/70
--- NOTE | 2022-01-17 21:14 | NUR ---
RN NOTE PT IS TOO SLEEPY/DROWSY AND AT TIMES LETHARGIC. WITHHELD SEROQUEL FOR 2100 SKED. WILL CONTINUE TO MONITOR PT.
[2022-01-17] MEDS: ATORVASTATIN 40 MG TABLET PO SCH (22:14)
[2022-01-18] VITALS (17 sets, daily range): BP systolic 112–146; BP diastolic 66–98
[2022-01-18] MEDS: PIPERACILLIN /TAZOBACTAM 3.375 G in IV D5W 100 ML IV SCH ×2 (00:17→08:16)
--- NOTE | 2022-01-18 01:47 | NUR ---
FiO2 increased from 50% to 60%. RN informed.
[2022-01-18] MEDS: ALBUTEROL HALF STRENGTH 1.25 MG/3 ML VIAL.NEB NEB SCH ×6 (03:43→23:27)
[2022-01-18] MEDS: IPRATROPIUM NEB FS 0.5 MG/2.5 ML AMPUL.NEB NEB SCH ×6 (03:43→23:27)
[2022-01-18] MEDS: QUETIAPINE FUMARATE 25 MG TABLET PO SCH ×3 (04:09→22:00)
--- NOTE | 2022-01-18 05:31 | NUR ---
RN NOTE PT REMAINED ON CONTINUOUS BIPAP, TOLERATING WELL, 02 SAT @ >90% AT THIS TIME. TRIED TO PUT PT ON SIMPLE MASK TO GIVE HER NOSE A BREAK, PT DESAT IMMEDIATELY. OTHER THAN THAT, PT SHOWS NO S/SX OF ACUTE RESPI DISTRESS. TELE MONITOR READS SR, HR 80s. ALL VS STABLE. DUE MEDS GIVEN. TURNED AND REPOSITIONED. ALL SAFETY MEASURES IN PLACE. WILL ENDORSE TO AM SHIFT NURSE FOR SHAUNA.
[2022-01-18 06:04] LABS: ABG BASE EXCESS 16.2 mmol/L; ABG PCO2 85.1 mmHg (35.0-45.0); ABG PH 7.336 (7.350-7.450); ABG PO2 75.8 mmHg (75.0-100.0); AaDO2 258.4 mmHg; COHb 0.3 % (0.5-1.5); MetHb 0.2 % (0.0-1.5); O2Hb 93.5 % (94.0-97.0); SITE, ABG Right Radial
--- NOTE | 2022-01-18 06:12 | NUR ---
RT SARA completed, results given to ELIGIO Barber.
--- NOTE | 2022-01-18 06:13 | NUR ---
Pt recvd awake on continuous Bipap 12/5 RR 12 50% FiO2. No SOB or respiratory distress noted at this time. Neb tx given and dorinda well. No redness or breakdown of skin noted. Mepilex skin barrier in place under bipap mask.
--- NOTE | 2022-01-18 07:20 | NUR ---
RN NOTE RECEIVED PATIENT IN BED RESTING ALERT ORIENTED X2-3 VERBALLY RESPONSIVE ON BIPAP O2:90% IV SITE IS ON LEFT WRIST INFILTRATED,BILATERAL SOFT RESTRAIN IN PLACE WILL CHECK EVERY 15 MINS FOR SKIN BREAKDOWN AND CIRCULATION,HEAD OF THE BED ELEVATED,CONTINUE TO MONITOR.
[2022-01-18 07:26] LABS: BASOPHILS % (AUTO) 0.3 % (0.0-2.0); HEMATOCRIT 23 % (33-45); HEMOGLOBIN 7.5 g/dL (11.5-14.8); LYMPHOCYTES # (AUTO) 1.2 K/uL (0.8-4.8); LYMPHOCYTES % (AUTO) 22.5 % (20.0-44.0); MEAN CORPUSCULAR HGB CONC 32 g/dl (31.0-36.0); MEAN CORPUSCULAR VOLUME 101 fL (82-100); MONOCYTES # (AUTO) 0.3 K/uL (0.1-1.30); MONOCYTES % (AUTO) 6.6 % (2.0-12.0); NEUTROPHILS # (AUTO) 3.6 K/uL (1.8-8.9); NEUTROPHILS % (AUTO) 68.6 % (43.0-81.0); PLATELET COUNT (AUTO) 317 K/uL (150-450); RED BLOOD CELL COUNT(AUTO) 2.31 MIL/uL (4.0-5.2); WHITE BLOOD COUNT (AUTO) 5.2 K/uL (4.3-11.0)
[2022-01-18 07:52] LABS: CALCIUM, SERUM 9.1 mg/dL (8.5-10.1); CREATININE 0.8 mg/dL (0.6-1.3); MAGNESIUM 1.9 mg/dL (1.8-2.4); PHOSPHORUS 2.7 mg/dL (2.5-4.9); POTASSIUM 3.2 mmol/L (3.5-5.1)
[2022-01-18] MEDS: PANTOPRAZOLE 40 MG TABLET.DR PO SCH (08:16)
[2022-01-18] MEDS: ARIPIPRAZOLE 5 MG TABLET PO SCH ×2 (08:16→17:50)
[2022-01-18] MEDS: FLUDROCORTISONE 0.1 MG TABLET PO SCH (08:17)
[2022-01-18] MEDS: DIVALPROEX SODIUM 250 MG TABLET.DR PO SCH (08:17)
[2022-01-18] MEDS: DOCUSATE SODIUM 100 MG CAPSULE PO SCH ×3 (08:17→17:50)
[2022-01-18] MEDS: ASPIRIN 81 MG TAB.CHEW PO SCH (08:17)
[2022-01-18] MEDS: DILTIAZEM HCL CD 300 MG PO SCH (08:17)
[2022-01-18] MEDS: EZETIMIBE 10 MG TABLET PO SCH (08:22)
[2022-01-18] MEDS: CLOTRIMAZOLE 1% 15 GM TUBE TP SCH ×2 (08:23→17:50)
--- NOTE | 2022-01-18 08:30 | NUR ---
RN NOTE TRIED IV INSERTION X2 UNSUCCESSFUL NOTIFIED CHARGE NURSE SOON CALLED MARIAM SCRAP DROP OPERATOR MARIAM,SHE SAID WILL FOLLOW UP WITH LICENSED PHARMACIST TEAM CONTINUE TO MONITOR.
[2022-01-18] MEDS ORDERED: POTASSIUM CL. PREMIX PERIPHER. 50 ML IV SCH (10:00)
--- NOTE | 2022-01-18 10:00 | NUR ---
RN NOTE NOT ABLE TO ADMINISTER ZOYSN DUE TO NO IV LINE,PATIENT TRANSFERRED TO ICU WITH ACALS PROTOCOL REPORT GIVEN TO BOB DEL VALLE FOR CONTINUATION OF CARE
--- NOTE | 2022-01-18 10:10 | NUR ---
APPLICATION CHEMISTCIRCULAR HEAD SAW OPERATOR NOTE: RECEIVED PT. FROM J LUIS AT 0950 VIA HOSPITAL BED. REPORT GIVEN BY J LUIS RN YESSICA AT BEDSIDE. PT IS AOX3, NO COMPLAINTS OF PAIN/DISCOMFORT AT THIS TIME. PT. ON BIPAP 20/5; RATE - 12; FIO2 - 50%. SATURATING AT 91% AT THIS TIME. COILER READS NSR WITH HR OF 94 BPM. PT. ON DIAPER. SKIN ISSUES NOTED. WILL DO SKIN PROTECTION MEASURES RECOMMENDED BY WOUND NURSE. NO IV ACCESS. WAITING FOR IV TEAM AND MIDLINE INSERTION. MULTIPLE ATTEMPTS ALREADY DONE BY J LUIS RN AND UNSUCCESSFUL. SAFETY MEASURES IN PLACE: BED IN LOWEST AND LOCKED POSITION, HOB ELEVATED AT 30 DEGREES, BED ALARM ON, CALL LIGHT WITHIN REACH. WILL TURN AND REPOSITION AT LEAST Q2H AND WILL CONTINUE TO MONITOR FOR ANY CHANGES.
[2022-01-18] MEDS ORDERED: POTASSIUM CHLORIDE 20 MEQ TAB.PRT.SR PO ONE (11:00)
[2022-01-18 12:08] LABS: BAND % (MANUAL) 6 % (0.0-5.0); EOSINOPHILS % (MANUAL) 2 % (0-4); LYMPHOCYTES % (MANUAL) 21 % (16-48); METAMYELOCYTES % 1 % (0-0); MONOCYTES % (MANUAL) 8 % (0-11.0); MYELOCYTES % 5 % (0-0); NEUTROPHILS % (MANUAL) 57 (42-76)
[2022-01-18] MEDS: IV NS 0.9% 250 ML IV PRN (14:40)
[2022-01-18] MEDS: DIVALPROEX SODIUM 500 MG TABLET.DR PO SCH (17:50)
--- NOTE | 2022-01-18 19:20 | NUR ---
BAR HOST/HOSTESS CLOSING NOTE: PT REMAINS IN BED, AOX3, NO COMPLAINTS OF PAIN/DISCOMFORT AT THIS TIME. PT STILL ON BIPAP 20/5; RATE - 12; FIO2 - 50%. SATURATING AT 93% AT THIS TIME. ELDER COUNSELOR READS NSR WITH HR OF 97 BPM. PT. VOIDED 2X. NO BM. SKIN PROTECTION MEASURES DONE RECOMMENDED BY WOUND NURSE. IV ACCESS ON MONA MIDLINE #18G WITH NS @ TKO. SAFETY MEASURES MAINTAINED: BED IN LOWEST AND LOCKED POSITION, HOB ELEVATED AT 30 DEGREES, BED ALARM ON, CALL LIGHT WITHIN REACH. TURNED AND REPOSITIONED AT LEAST Q2H. ENDORSED CONTINUITY OF CARE TO DISPOSAL OPERATOR RN.
--- NOTE | 2022-01-18 20:00 | NUR ---
RN NOTE RECEIVED PT AWAKE, ALERT, ON BIPAP 20/5 RATE 12 FIO2 50%. DENIES ANY PAIN OR SOB. NO SIGNS OF DISTRESS NOTED. MONA ML IN PLACE PATENT AND INTACT. ALL SAFETY MEASURES IN PLACE. CALL LIGHT WITHIN REACH. WILL CONTINUE TO MONITOR.
[2022-01-18] MEDS: ATORVASTATIN 40 MG TABLET PO SCH (22:00)
--- NOTE | 2022-01-18 22:08 | NUR ---
RN NOTE PT ON BIPAP, SLEEPING. HELD HS MEDS.
[2022-01-19] VITALS (29 sets, daily range): BP systolic 91–146; BP diastolic 40–92
[2022-01-19] MEDS: IPRATROPIUM NEB FS 0.5 MG/2.5 ML AMPUL.NEB NEB SCH ×6 (03:36→23:15)
[2022-01-19] MEDS: ALBUTEROL HALF STRENGTH 1.25 MG/3 ML VIAL.NEB NEB SCH ×6 (03:36→23:15)
[2022-01-19 04:07] LABS: BASOPHILS % (AUTO) 0.4 % (0.0-2.0); EOSINOPHILS % (AUTO) 1.4 % (0.0-6.0); HEMATOCRIT 22 % (33-45); HEMOGLOBIN 7.1 g/dL (11.5-14.8); LYMPHOCYTES # (AUTO) 1.8 K/uL (0.8-4.8); LYMPHOCYTES % (AUTO) 25.4 % (20.0-44.0); MEAN CORPUSCULAR HGB CONC 32 g/dl (31.0-36.0); MEAN CORPUSCULAR VOLUME 100 fL (82-100); MONOCYTES # (AUTO) 0.5 K/uL (0.1-1.30); MONOCYTES % (AUTO) 7.7 % (2.0-12.0); NEUTROPHILS # (AUTO) 4.6 K/uL (1.8-8.9); NEUTROPHILS % (AUTO) 65.1 % (43.0-81.0); PLATELET COUNT (AUTO) 320 K/uL (150-450); RED BLOOD CELL COUNT(AUTO) 2.22 MIL/uL (4.0-5.2); WHITE BLOOD COUNT (AUTO) 7.1 K/uL (4.3-11.0)
[2022-01-19 04:20] LABS: CALCIUM, SERUM 8.8 mg/dL (8.5-10.1); CREATININE 0.6 mg/dL (0.6-1.3); MAGNESIUM 1.7 mg/dL (1.8-2.4); PHOSPHORUS 2.3 mg/dL (2.5-4.9); POTASSIUM 3.7 mmol/L (3.5-5.1)
[2022-01-19] MEDS: QUETIAPINE FUMARATE 25 MG TABLET PO SCH ×3 (05:00→20:23)
[2022-01-19 05:04] LABS: BAND % (MANUAL) 6 % (0.0-5.0); BASOPHILS % (MANUAL) 0 % (0.0-2.0); EOSINOPHILS % (MANUAL) 2 % (0-4); LYMPHOCYTES % (MANUAL) 23 % (16-48); METAMYELOCYTES % 3 % (0-0); MONOCYTES % (MANUAL) 7 % (0-11.0); MYELOCYTES % 4 % (0-0); NEUTROPHILS % (MANUAL) 55 (42-76)
--- NOTE | 2022-01-19 07:15 | NUR ---
PAINT TECHNICIAN OPENING NOTE: RECEIVED PT. IN BED, AWAKE, AOX3, NO COMPLAINTS OF PAIN/DISCOMFORT AT THIS TIME. PT. ON BIPAP 20/5; RATE - 12; FIO2 - 50%. SATURATING AT 94% AT THIS TIME. ABSEILING INSTRUCTOR READS NSR WITH HR OF 72 BPM. PT. ON DIAPER. IV ACCESS ON MONA MIDLINE, ON TKO, PATENT WITH NO S/S OF INFILTRATION. IV DRESSING C/D/I. SAFETY MEASURES IN PLACE: BED IN LOWEST AND LOCKED POSITION, HOB ELEVATED AT 30 DEGREES, BED ALARM ON, CALL LIGHT WITHIN REACH. WILL TURN AND REPOSITION AT LEAST Q2H AND WILL CONTINUE TO MONITOR PT. FOR ANY CHANGES.
--- NOTE | 2022-01-19 07:27 | NUR ---
RN NOTE PT TOLERATED BIPAP ALL NIGHT. NO RESP DISTRESS NOTED. AWAKE AND RESPONDING. ENDORSED TO AM SHIFT NURSE FOR SHAUNA.
[2022-01-19] MEDS: EZETIMIBE 10 MG TABLET PO SCH (08:29)
[2022-01-19] MEDS: CLOTRIMAZOLE 1% 15 GM TUBE TP SCH ×2 (08:29→17:44)
[2022-01-19] MEDS: ARIPIPRAZOLE 5 MG TABLET PO SCH ×2 (08:29→17:47)
[2022-01-19] MEDS: ASPIRIN 81 MG TAB.CHEW PO SCH (08:30)
[2022-01-19] MEDS: DOCUSATE SODIUM 100 MG CAPSULE PO SCH ×3 (08:30→17:47)
[2022-01-19] MEDS: PANTOPRAZOLE 40 MG TABLET.DR PO SCH (08:30)
[2022-01-19] MEDS: DIVALPROEX SODIUM 250 MG TABLET.DR PO SCH (08:30)
[2022-01-19] MEDS: FLUDROCORTISONE 0.1 MG TABLET PO SCH (08:30)
[2022-01-19] MEDS: DILTIAZEM HCL CD 300 MG PO SCH (08:30)
[2022-01-19 09:24] LABS: ABG BASE EXCESS 11.6 mmol/L; ABG OXYGEN SATURATION 85.2 % (92.0-98.5); ABG PCO2 63.2 mmHg (35.0-45.0); ABG PH 7.399 (7.350-7.450); ABG PO2 50.4 mmHg (75.0-100.0); COHb 0.3 % (0.5-1.5); MetHb 0.2 % (0.0-1.5); O2Hb 84.8 % (94.0-97.0); SITE, ABG Right Radial; VENT MODE, BG HFNC
[2022-01-19] MEDS: IV NS 0.9% 250 ML IV PRN (09:42)
[2022-01-19] MEDS: Magnesium 1GM/D5W 100ML PREMIX 100 ML IV SCH ×2 (12:05→13:25)
[2022-01-19] MEDS: acetaZOLAMIDE SODIUM 500 MG/VIAL VIAL IV SCH (12:15)
[2022-01-19] MEDS ORDERED: NEUTRA PHOS 1 POWD.PACKET PO ONE (12:30)
[2022-01-19] MEDS: DIVALPROEX SODIUM 500 MG TABLET.DR PO SCH (17:47)
--- NOTE | 2022-01-19 19:02 | NUR ---
AGRONOMY MANAGER CLOSING NOTE: PT. REMAINS IN BED, AWAKE, AOX3, NO COMPLAINTS OF PAIN/DISCOMFORT AT THIS TIME. NOW ON HIFLO 02 VIA NASAL CANNULA WITH 30 L/MIN AND 60% FIO2. TOLERATING WELL. SATURATING AT 90-92% AT THIS TIME. PT. WILL BE ON NOCTURNAL BIPAP PER DR. CABEZAS. DIESEL TECHNICIAN READS NSR WITH HR OF 92 BPM. PT. ON DIAPER, VOIDED 4X, 1 NORMAL BOWEL MOVEMENT THIS SHIFT. IV ACCESS ON MONA MIDLINE, ON TKO, PATENT WITH NO S/S OF INFILTRATION. IV DRESSING C/D/I. SAFETY MEASURES MAINTAINED: BED IN LOWEST AND LOCKED POSITION, HOB ELEVATED AT 30 DEGREES, BED ALARM ON, CALL LIGHT WITHIN REACH. TURNED AND REPOSITIONED AT LEAST Q2H. ENDORSED CONTINUITY OF CARE TO RESTAURANT ASSISTANT MANAGER RN.
[2022-01-19] MEDS: ATORVASTATIN 40 MG TABLET PO SCH (20:24)
--- NOTE | 2022-01-19 21:00 | NUR ---
PLACED PT ON NOC BIPAP 18/5 ,RATE 12, FIO2 50% RN TABATHA NOTIFIED. WILL CONTINUE TO MONITOR T/O SHIFT
[2022-01-20] VITALS (39 sets, daily range): BP systolic 86–161; BP diastolic 29–80
[2022-01-20] MEDS: IPRATROPIUM NEB FS 0.5 MG/2.5 ML AMPUL.NEB NEB SCH ×6 (03:28→23:23)
[2022-01-20] MEDS: ALBUTEROL HALF STRENGTH 1.25 MG/3 ML VIAL.NEB NEB SCH ×6 (03:28→23:23)
[2022-01-20] MEDS: QUETIAPINE FUMARATE 25 MG TABLET PO SCH ×3 (05:00→21:00)
--- NOTE | 2022-01-20 05:01 | NUR ---
GEOSPATIAL SPECIALIST NON ADMIN PO MEDS PT IS ON BIPAP
[2022-01-20 05:03] LABS: MAGNESIUM 2.1 mg/dL (1.8-2.4); PHOSPHORUS 3.3 mg/dL (2.5-4.9)
--- NOTE | 2022-01-20 07:12 | NUR ---
DRAIN TECHNICIAN OPENING NOTE: RECEIVED PT. IN BED, AWAKE, AOX3, NO COMPLAINTS OF PAIN/DISCOMFORT AT THIS TIME. PT. ON BIPAP ; RATE - 12; FIO2 - 50%. SATURATING AT 94% AT THIS TIME. BIOINFORMATICIAN READS NSR WITH HR OF 77 BPM. PT. ON DIAPER. IV ACCESS ON MONA MIDLINE, ON TKO, PATENT WITH NO S/S OF INFILTRATION. IV DRESSING C/D/I. SAFETY MEASURES IN PLACE: BED IN LOWEST AND LOCKED POSITION, HOB ELEVATED AT 30 DEGREES, BED ALARM ON, CALL LIGHT WITHIN REACH. WILL CONTINUE TO MONITOR FOR SHAUNA PT. FOR ANY
--- NOTE | 2022-01-20 08:23 | NUR ---
RN NOTES: PT WAS PLACED BY RT ON HIGH FLOW OXYGEN VIA NASAL CANULA 60% ON 30 LITER, O2 SAT 91%. NO SOB NOTED AT THIS TIME
[2022-01-20] MEDS: acetaZOLAMIDE SODIUM 500 MG/VIAL VIAL IV SCH (08:46)
[2022-01-20] MEDS: DOCUSATE SODIUM 100 MG CAPSULE PO SCH ×3 (08:46→17:26)
[2022-01-20] MEDS: ARIPIPRAZOLE 5 MG TABLET PO SCH ×2 (08:46→17:26)
[2022-01-20] MEDS: ASPIRIN 81 MG TAB.CHEW PO SCH (08:47)
[2022-01-20] MEDS: DILTIAZEM HCL CD 300 MG PO SCH (08:47)
[2022-01-20] MEDS: FLUDROCORTISONE 0.1 MG TABLET PO SCH (08:47)
[2022-01-20] MEDS: EZETIMIBE 10 MG TABLET PO SCH (08:48)
[2022-01-20] MEDS: DIVALPROEX SODIUM 250 MG TABLET.DR PO SCH (08:48)
[2022-01-20] MEDS: PANTOPRAZOLE 40 MG TABLET.DR PO SCH (08:48)
[2022-01-20] MEDS: CLOTRIMAZOLE 1% 15 GM TUBE TP SCH ×2 (09:04→17:27)
[2022-01-20 09:42] LABS: ABG OXYGEN SATURATION 87.2 % (92.0-98.5); ABG PCO2 57.9 mmHg (35.0-45.0); ABG PH 7.401 (7.350-7.450); ABG PO2 56.3 mmHg (75.0-100.0); AaDO2 307.8 mmHg; COHb 0.3 % (0.5-1.5); MetHb 0.3 % (0.0-1.5); O2Hb 86.7 % (94.0-97.0); SITE, ABG Right Radial; VENT MODE, BG HFNC 30LPM 60%
--- NOTE | 2022-01-20 09:50 | NUR ---
RN NOTES: ABG DONE BY RT RELAYED TO DR CABEZAS WITH NO NEW ORDERS AT THIS TIME
[2022-01-20 10:52] LABS: CREATININE 0.6 mg/dL (0.6-1.3); POTASSIUM 3.4 mmol/L (3.5-5.1)
[2022-01-20 10:54] LABS: BASOPHILS % (AUTO) 0.6 % (0.0-2.0); EOSINOPHILS % (AUTO) 1.5 % (0.0-6.0); HEMATOCRIT 24 % (33-45); HEMOGLOBIN 7.7 g/dL (11.5-14.8); LYMPHOCYTES # (AUTO) 1.5 K/uL (0.8-4.8); LYMPHOCYTES % (AUTO) 21.6 % (20.0-44.0); MEAN CORPUSCULAR HGB CONC 32 g/dl (31.0-36.0); MEAN CORPUSCULAR VOLUME 102 fL (82-100); MONOCYTES # (AUTO) 0.4 K/uL (0.1-1.30); MONOCYTES % (AUTO) 6.5 % (2.0-12.0); NEUTROPHILS # (AUTO) 4.8 K/uL (1.8-8.9); NEUTROPHILS % (AUTO) 69.8 % (43.0-81.0); PLATELET COUNT (AUTO) 305 K/uL (150-450); RED BLOOD CELL COUNT(AUTO) 2.39 MIL/uL (4.0-5.2); WHITE BLOOD COUNT (AUTO) 6.8 K/uL (4.3-11.0)
[2022-01-20] MEDS: IV NS 0.9% 250 ML IV PRN (13:38)
[2022-01-20] MEDS: DIVALPROEX SODIUM 500 MG TABLET.DR PO SCH (18:49)
--- NOTE | 2022-01-20 19:21 | NUR ---
LARD TUB WASHER CLOSING NOTE: PT. REMAINS IN BED, AWAKE, AOX3, NO COMPLAINTS OF PAIN/DISCOMFORT AT THIS TIME. NOW ON HIFLO 02 VIA NASAL CANNULA WITH 30 L/MIN AND 60% FIO2. TOLERATING WELL. SATURATING AT 90-92% AT THIS TIME. PT. WILL BE ON NOCTURNAL BIPAP PER DR. CABEZAS. WINCH DERRICK OPERATOR READS NSR WITH HR OF 72 BPM. PT. ON DIAPER, VOIDED 4X, 1 LARGE BOWEL MOVEMENT THIS SHIFT. IV ACCESS ON MONA MIDLINE, ON TKO, PATENT WITH NO S/S OF INFILTRATION. IV DRESSING C/D/I. SAFETY MEASURES MAINTAINED: BED IN LOWEST AND LOCKED POSITION, HOB ELEVATED AT 30 DEGREES, BED ALARM ON, CALL LIGHT WITHIN REACH. TURNED AND REPOSITIONED AT LEAST Q2H. ENDORSED CONTINUITY OF CARE TO SENIOR CLINICAL DATA ANALYST RN.
[2022-01-20] MEDS: ATORVASTATIN 40 MG TABLET PO SCH (21:04)
--- NOTE | 2022-01-20 21:04 | NUR ---
ELECTRICAL SIGN WIRER NON ADMIN PO MEDS AT THIS TIME PT IS ON BIPAP FOR LOW SATURATION; PT WITH PERIODS OF LETHARGY.
[2022-01-21] VITALS (40 sets, daily range): BP systolic 78–131; BP diastolic 41–76
[2022-01-21] MEDS: IPRATROPIUM NEB FS 0.5 MG/2.5 ML AMPUL.NEB NEB SCH ×6 (03:43→23:36)
[2022-01-21] MEDS: ALBUTEROL HALF STRENGTH 1.25 MG/3 ML VIAL.NEB NEB SCH ×6 (03:43→23:36)
[2022-01-21 04:22] LABS: BASOPHILS % (AUTO) 0.3 % (0.0-2.0); EOSINOPHILS % (AUTO) 1.5 % (0.0-6.0); HEMATOCRIT 24 % (33-45); HEMOGLOBIN 7.9 g/dL (11.5-14.8); LYMPHOCYTES # (AUTO) 1.7 K/uL (0.8-4.8); LYMPHOCYTES % (AUTO) 22.8 % (20.0-44.0); MEAN CORPUSCULAR HGB CONC 32 g/dl (31.0-36.0); MEAN CORPUSCULAR VOLUME 100 fL (82-100); MONOCYTES # (AUTO) 0.5 K/uL (0.1-1.30); MONOCYTES % (AUTO) 6.7 % (2.0-12.0); NEUTROPHILS # (AUTO) 5.2 K/uL (1.8-8.9); NEUTROPHILS % (AUTO) 68.7 % (43.0-81.0); PLATELET COUNT (AUTO) 291 K/uL (150-450); RED BLOOD CELL COUNT(AUTO) 2.43 MIL/uL (4.0-5.2); WHITE BLOOD COUNT (AUTO) 7.5 K/uL (4.3-11.0)
[2022-01-21 04:33] LABS: CALCIUM, SERUM 9.2 mg/dL (8.5-10.1); CREATININE 0.7 mg/dL (0.6-1.3); MAGNESIUM 1.9 mg/dL (1.8-2.4); PHOSPHORUS 3.8 mg/dL (2.5-4.9); POTASSIUM 3.1 mmol/L (3.5-5.1)
[2022-01-21] MEDS: QUETIAPINE FUMARATE 25 MG TABLET PO SCH ×3 (04:43→20:11)
--- NOTE | 2022-01-21 04:43 | NUR ---
BUTTON FACING MACHINE OPERATOR NON ADMIN PO MEDS AT THIS TIME PT IS ON BIPAP FOR LOW SATURATION; UNABLE TO TOLERATE BIPAP REMOVAL
--- NOTE | 2022-01-21 05:31 | NUR ---
RT NOTE PT NOT TOLERATING FIO2 TITRATION T/O SHIFT. DESATURATION OCCURS. PT REMAINS ON BIPAP @ 100%.
--- NOTE | 2022-01-21 08:00 | NUR ---
RN NOTES RECEIVED PATIENT ON BIPAP TOLERATING WELL, NO ACUTE RESPIRATORY DISTRESS. RT WITH THE PATIENT FOR BREATHING TREATMENT. PATIENT AWAKE, A/O X3. REFUSED PAIN. CALL LIGHT WITHIN TO REACH. WILL FOLLOW UP.
--- NOTE | 2022-01-21 08:23 | NUR ---
placed into high flow nasal cannula with 60 flow / 90% fio2. spo2 88 - 89% Addendum: 01/21/22 at 0825 by LOI WERNER RT Amended: Links added.
[2022-01-21] MEDS ORDERED: POTASSIUM CHLORIDE 20 MEQ TAB.PRT.SR PO SCH (09:00)
[2022-01-21] MEDS: FLUDROCORTISONE 0.1 MG TABLET PO SCH (09:11)
[2022-01-21] MEDS: DILTIAZEM HCL CD 300 MG PO SCH (09:12)
[2022-01-21] MEDS: ASPIRIN 81 MG TAB.CHEW PO SCH (09:13)
[2022-01-21] MEDS: DOCUSATE SODIUM 100 MG CAPSULE PO SCH ×3 (09:13→16:50)
[2022-01-21] MEDS: ARIPIPRAZOLE 5 MG TABLET PO SCH ×2 (09:14→16:50)
[2022-01-21] MEDS: PANTOPRAZOLE 40 MG TABLET.DR PO SCH (09:14)
[2022-01-21] MEDS: CLOTRIMAZOLE 1% 15 GM TUBE TP SCH ×2 (09:20→16:51)
[2022-01-21] MEDS: EZETIMIBE 10 MG TABLET PO SCH (09:23)
[2022-01-21] MEDS: acetaZOLAMIDE SODIUM 500 MG/VIAL VIAL IV SCH (09:24)
[2022-01-21] MEDS: ENOXAPARIN SODIUM 40 MG/0.4 ML DISP.SYRIN SQ SCH (10:56)
[2022-01-21 11:08] LABS: ABG BASE EXCESS 9.1 mmol/L; ABG PCO2 65.4 mmHg (35.0-45.0); ABG PH 7.358 (7.350-7.450); ABG PO2 67.2 mmHg (75.0-100.0); AaDO2 507.5 mmHg; COHb 0.3 % (0.5-1.5); MetHb 0.5 % (0.0-1.5); O2Hb 91.3 % (94.0-97.0); SITE, ABG Right Radial; VENT MODE, BG HFNC 60L 90%
--- NOTE | 2022-01-21 12:00 | NUR ---
RN NOTES PATIENT ON HF 60L/90%, TOLERATED LUNCH WELL, DUE MEDICATION ADMINISTERED, ASSIST TURN AND REPOSTION Q 2 HR.
[2022-01-21] MEDS: IV NS 0.9% 250 ML IV PRN (15:14)
[2022-01-21] MEDS: DIVALPROEX SODIUM 500 MG TABLET.DR PO SCH (16:50)
--- NOTE | 2022-01-21 18:30 | NUR ---
RN NOTES PM CARE DONE. PATIENT INCONTINENT USING DIAPER, DUE MEDICATION ADMINISTERED, PATIENT REFUSED PAIN , HF-60L/90% TOLERATING WELL, INFUSING TKO @10ML/HR MONA INTACT. ASSIST TURN AND REPOSITION. ENDORSED ONCOMING NURSE SHAUNA.
[2022-01-21] MEDS: ATORVASTATIN 40 MG TABLET PO SCH (20:11)
[2022-01-22] VITALS (30 sets, daily range): BP systolic 73–140; BP diastolic 43–75
[2022-01-22] MEDS: ALBUTEROL HALF STRENGTH 1.25 MG/3 ML VIAL.NEB NEB SCH ×6 (03:42→23:16)
[2022-01-22] MEDS: IPRATROPIUM NEB FS 0.5 MG/2.5 ML AMPUL.NEB NEB SCH ×6 (03:42→23:16)
[2022-01-22 05:17] LABS: BASOPHILS % (AUTO) 0.3 % (0.0-2.0); EOSINOPHILS % (AUTO) 1.8 % (0.0-6.0); HEMATOCRIT 24 % (33-45); HEMOGLOBIN 7.6 g/dL (11.5-14.8); LYMPHOCYTES # (AUTO) 1.5 K/uL (0.8-4.8); LYMPHOCYTES % (AUTO) 23.8 % (20.0-44.0); MEAN CORPUSCULAR HGB CONC 32 g/dl (31.0-36.0); MEAN CORPUSCULAR VOLUME 102 fL (82-100); MONOCYTES # (AUTO) 0.4 K/uL (0.1-1.30); MONOCYTES % (AUTO) 7.1 % (2.0-12.0); NEUTROPHILS # (AUTO) 4.1 K/uL (1.8-8.9); PLATELET COUNT (AUTO) 274 K/uL (150-450); RED BLOOD CELL COUNT(AUTO) 2.34 MIL/uL (4.0-5.2); WHITE BLOOD COUNT (AUTO) 6.2 K/uL (4.3-11.0)
[2022-01-22] MEDS: QUETIAPINE FUMARATE 25 MG TABLET PO SCH ×3 (05:23→21:27)
[2022-01-22 05:32] LABS: CALCIUM, SERUM 9.1 mg/dL (8.5-10.1); CREATININE 0.8 mg/dL (0.6-1.3); MAGNESIUM 1.7 mg/dL (1.8-2.4); POTASSIUM 3.1 mmol/L (3.5-5.1)
--- NOTE | 2022-01-22 08:00 | NUR ---
RN NOTES RECEIVED PATIENT ON HF 60L/90%, NO ACUTE RESPIRATORY DISTRESS. DUE MEDICATION ADMINISTERED, RT WITH THE PATIENT FOR BREATHING TREATMENT. NO ACUTE RESPIRATORY DISTRESS. PATIENT AWAKE, A/O X3. CALL LIGHT WITHIN TO REACH. WILL FOLLOW UP.
[2022-01-22] MEDS: DILTIAZEM HCL CD 300 MG PO SCH (09:00)
[2022-01-22] MEDS ORDERED: DIVALPROEX SODIUM 250 MG TABLET.DR PO SCH (09:00)
[2022-01-22] MEDS: FLUDROCORTISONE 0.1 MG TABLET PO SCH (09:13)
[2022-01-22] MEDS: PANTOPRAZOLE 40 MG TABLET.DR PO SCH (09:13)
[2022-01-22] MEDS: EZETIMIBE 10 MG TABLET PO SCH (09:13)
[2022-01-22] MEDS: ARIPIPRAZOLE 5 MG TABLET PO SCH ×2 (09:13→16:38)
[2022-01-22] MEDS: ASPIRIN 81 MG TAB.CHEW PO SCH (09:13)
[2022-01-22] MEDS: DOCUSATE SODIUM 100 MG CAPSULE PO SCH ×3 (09:13→16:38)
[2022-01-22] MEDS: ENOXAPARIN SODIUM 40 MG/0.4 ML DISP.SYRIN SQ SCH (09:16)
[2022-01-22] MEDS: CLOTRIMAZOLE 1% 15 GM TUBE TP SCH ×2 (09:16→16:38)
[2022-01-22] MEDS: acetaZOLAMIDE SODIUM 500 MG/VIAL VIAL IV SCH (10:10)
[2022-01-22] MEDS: DIVALPROEX SODIUM 250 MG TABLET.DR PO SCH (10:12)
[2022-01-22] MEDS ORDERED: POTASSIUM CHLORIDE 20 MEQ TAB.PRT.SR PO SCH (11:00)
[2022-01-22] MEDS: Magnesium 1GM/D5W 100ML PREMIX 100 ML IV SCH ×2 (12:31→13:40)
[2022-01-22] MEDS: IV NS 0.9% 250 ML IV PRN (15:55)
--- NOTE | 2022-01-22 16:00 | NUR ---
RN NOTES TITRATED HF 60L/60% PER MD ORDER, AFTER 10 MINUTES PATIENT GET DISATURATED 84%, INCREASED HF 60L/80% VIA RT. WILL FOLLOW UP.
[2022-01-22] MEDS: DIVALPROEX SODIUM 500 MG TABLET.DR PO SCH (17:26)
--- NOTE | 2022-01-22 18:00 | NUR ---
RN NOTES PATIENT ON HF 60L/80% NO ACUTE RESPIRATORY DISTRESS. PATIENT TOLERATED DINNER 10%, DUE MEDICATION ADMINISTERED, ASSIST TURN AND REPOSTION. PM CARE DONE, PATIENT USING DIAPER. IV ACCESS ON MONA MIDLINE INTACT. INFUSING TKO. CALL LIGHT WITHIN TO REACH. ENDORSED ONCOMING NURSE SHAUNA.
--- NOTE | 2022-01-22 19:30 | NUR ---
RN OPENING NOTE RECEIVED REPORT FROM ALBINA FOR SHAUNA. PT IN BED, SLEEPING. CURRENTLY ON HIGH FLOW 60L/75%, TOLERATING WELL. NO S/SX OF ACUTE RESPI DISTRESS NOTED AT THIS TIME. O2 SAT >93%, NO SOB, BREATHING IS EVEN AND UNLABORED. TELE MONITOR READS SR, HR >70 BPM. IV ACCESS NOTED ON MONA ML, PATENT AND INTACT, INFUSING NS @ 10 CC/HR. ALL SAFETY MEASURES IN PLACE: BED LOCKED IN LOW POSITION, BED ALARM ON, SR UP X 2, CALL LIGHT WITHIN REACH. WILL CONTINUE TO MONITOR T/O THE NIGHT.
--- NOTE | 2022-01-22 20:40 | NUR ---
RN NOTE PT PUT ON BIPAP BY RT. SETTINGS ARE FOLLOW: 18/5, RATE 12, FIO2 60% PT TOLERATING WELL. O2 SAT 92%. WILL CONTINUE TO MONITOR.
[2022-01-22] MEDS: ATORVASTATIN 40 MG TABLET PO SCH (21:27)
[2022-01-23] VITALS (24 sets, daily range): BP systolic 84–153; BP diastolic 52–88
[2022-01-23] MEDS: IPRATROPIUM NEB FS 0.5 MG/2.5 ML AMPUL.NEB NEB SCH ×6 (03:40→23:01)
[2022-01-23] MEDS: ALBUTEROL HALF STRENGTH 1.25 MG/3 ML VIAL.NEB NEB SCH ×6 (03:40→23:01)
[2022-01-23] MEDS: QUETIAPINE FUMARATE 25 MG TABLET PO SCH ×3 (04:27→21:18)
--- NOTE | 2022-01-23 06:23 | NUR ---
RN CLOSING NOTE PATIENT BACK ON HF 60L/70%, TOLERATING WELL. O2 SAT 94%. NO ACUTE RESPIRATORY DISTRESS NOTED. ALL DUE MEDS ADMINISTERED. NEEDS ATTENDED. TURNED AND REPOSTIONED. PM CARE GIVEN. VS STABLE. ALL SAFETY MEASURES IN PLACE. WILL ENDORSE TO AM SHIFT NURSE FOR SHAUNA.
--- NOTE | 2022-01-23 07:30 | NUR ---
OPENING NOTE: REPORT RECEIVED FROM MELVA DEL VALLE. ORDERS AND LABS REVIEWED DURING REPORT. PT CURRENTLY ON HIGH FLOW NASAL CANNULA 60L 60%. PT ALERT OX4, FOLLOWS COMMANDS, ALTHOUGH PER REPORT IS NON COMPLIANT WITH MEDS. PT CHECKED ON HOURLY AND PRN BY NURSING STAFF.
[2022-01-23] MEDS: ERGOCALCIFEROL (VITAMIN D 2) 50,000 UNIT CAPSULE PO SCH (09:49)
[2022-01-23] MEDS: ASPIRIN 81 MG TAB.CHEW PO SCH (09:49)
[2022-01-23] MEDS: FLUDROCORTISONE 0.1 MG TABLET PO SCH (09:49)
[2022-01-23] MEDS: PANTOPRAZOLE 40 MG TABLET.DR PO SCH (09:50)
[2022-01-23] MEDS: DOCUSATE SODIUM 100 MG CAPSULE PO SCH ×3 (09:50→17:24)
[2022-01-23] MEDS: ARIPIPRAZOLE 5 MG TABLET PO SCH ×2 (09:50→17:24)
[2022-01-23] MEDS: EZETIMIBE 10 MG TABLET PO SCH (09:50)
[2022-01-23] MEDS: DIVALPROEX SODIUM 250 MG TABLET.DR PO SCH (09:51)
[2022-01-23] MEDS: CLOTRIMAZOLE 1% 15 GM TUBE TP SCH ×2 (09:51→17:25)
[2022-01-23] MEDS: DILTIAZEM HCL CD 300 MG PO SCH (09:51)
[2022-01-23] MEDS: ENOXAPARIN SODIUM 40 MG/0.4 ML DISP.SYRIN SQ SCH (09:53)
[2022-01-23] MEDS: IV NS 0.9% 250 ML IV PRN (14:20)
[2022-01-23] MEDS: DIVALPROEX SODIUM 500 MG TABLET.DR PO SCH (17:24)
--- NOTE | 2022-01-23 17:54 | NUR ---
END OF SHIFT NOTE: PT HAD A FAIRLY UNEVENTFUL SHIFT. O2 REQUIREMENTS INCREASED THIS SHIFT. CURRENTLY PT IS ON HIGH FLOW NASAL CANNULA 60L AT 80%. PT ATE SMALL AMOUNTS OF FOOD. INCONTINENT OF URINE. 1 BM THIS SHIFT. PT CAN TAKE SMALL PILLS WHOLE WITH APPLESAUCE, LARGE PILLS CRUSHED. PT CHECKED ON HOURLY AND PRN BY NURSING STAFF.
--- NOTE | 2022-01-23 19:15 | NUR ---
RN OPENING NOTES RECEIVED PATIENT ON BED, SLEEPING BUT AROUSABLE, ON HIGH FLOW NASAL CANULA @ 60L, FIO2- 80%, SATING AT 93%. RESPIRATORY EVEN AND UNLABORED, NO SOB NOTED. AFEBRILE, NO S/S OF DISTRESS NOTED. WITH MONA MIDLINE, PATENT, INTACT, FLUSHED WITH NS. NO S/S OF INFILTRATION NOTED. REPOSITION PATIENT EVERY 2 HRS. ALL SAFETY PRECAUTION PROVIDED, BED IN LOWEST POSITION, LOCKED. BED ALARM ARMED. CALL LIGHT WITH IN REACH. CONTINUE TO MONITOR.
[2022-01-23] MEDS: ATORVASTATIN 40 MG TABLET PO SCH (21:18)
[2022-01-24] VITALS (24 sets, daily range): BP systolic 89–130; BP diastolic 45–91
[2022-01-24] MEDS: IPRATROPIUM NEB FS 0.5 MG/2.5 ML AMPUL.NEB NEB SCH ×6 (04:02→23:31)
[2022-01-24] MEDS: ALBUTEROL HALF STRENGTH 1.25 MG/3 ML VIAL.NEB NEB SCH ×6 (04:02→23:31)
[2022-01-24] MEDS: QUETIAPINE FUMARATE 25 MG TABLET PO SCH ×3 (05:00→21:17)
--- NOTE | 2022-01-24 05:40 | NUR ---
RT NOTE PT TOLERATED NOC BIPAP WELL. PLACED PT ON HIGH FLOW 60 LPM @ 70%. NO SOB NOTED. PT AWAKE/ALERT.
--- NOTE | 2022-01-24 05:55 | NUR ---
RT NOTE INCREASED FIO2 TO 75%. RN ISIDRO NOTIFIED.
--- NOTE | 2022-01-24 07:18 | NUR ---
RN NOTES PATIENT ASLEEP, BUT EASY TO AROUSE, ON HIGH FLOW NASAL CANULA @ 60L, FIO2- 75%, SATING AT 93%. RESPIRATORY EVEN AND UNLABORED, NO SOB NOTED. REMAIN AFEBRILE, NO S/S OF DISTRESS NOTED. REPOSITION PATIENT EVERY 2 HRS. ALL DUE MEDS GIVEN. ALL SAFETY PRECAUTION PROVIDED, BED IN LOWEST POSITION, LOCKED. BED ALARM ARMED. CALL LIGHT WITH IN REACH. REPORT GIVEN TO MORNING SHIFT NURSE.
[2022-01-24] MEDS: DIVALPROEX SODIUM 250 MG TABLET.DR PO SCH (08:01)
[2022-01-24] MEDS: PANTOPRAZOLE 40 MG TABLET.DR PO SCH (08:01)
[2022-01-24] MEDS: ARIPIPRAZOLE 5 MG TABLET PO SCH ×2 (08:01→16:52)
[2022-01-24] MEDS: FLUDROCORTISONE 0.1 MG TABLET PO SCH (08:02)
[2022-01-24] MEDS: ASPIRIN 81 MG TAB.CHEW PO SCH (08:02)
[2022-01-24] MEDS: DOCUSATE SODIUM 100 MG CAPSULE PO SCH ×3 (08:02→16:52)
[2022-01-24] MEDS: EZETIMIBE 10 MG TABLET PO SCH (08:02)
[2022-01-24] MEDS: ENOXAPARIN SODIUM 40 MG/0.4 ML DISP.SYRIN SQ SCH (08:03)
[2022-01-24] MEDS: CLOTRIMAZOLE 1% 15 GM TUBE TP SCH ×2 (08:05→16:55)
[2022-01-24] MEDS: DILTIAZEM HCL CD 300 MG PO SCH (08:13)
[2022-01-24 08:22] LABS: ABG BASE EXCESS 6.4 mmol/L; ABG OXYGEN SATURATION 86.5 % (92.0-98.5); ABG PH 7.394 (7.350-7.450); ABG PO2 53.3 mmHg (75.0-100.0); AaDO2 424.1 mmHg; COHb 0.3 % (0.5-1.5); MetHb 0.2 % (0.0-1.5); O2Hb 86.1 % (94.0-97.0); SITE, ABG Right Radial; VENT MODE, BG HHFNC 60L 75%
[2022-01-24] MEDS: IV NS 0.9% 250 ML IV PRN (12:48)
[2022-01-24 13:20] LABS: CALCIUM, SERUM 9.2 mg/dL (8.5-10.1); CARBON DIOXIDE 35 mmol/L (21-32); CHLORIDE 105 mmol/L (98-107); CREATININE 0.6 mg/dL (0.6-1.3); GLUCOSE 170 mg/dL (74-106); POTASSIUM 3.8 mmol/L (3.5-5.1); SODIUM SERUM 143 mmol/L (136-145); UREA NITROGEN, BLOOD 10 mg/dL (7-18)
[2022-01-24] MEDS: DIVALPROEX SODIUM 500 MG TABLET.DR PO SCH (17:01)
--- NOTE | 2022-01-24 18:44 | NUR ---
END OF SHIFT NOTE: PATIENT DENIES ANY DISCOMFORT; NO SSx OF DISTRESS NOTED ; STABLE AT THIS TIME; OXYGEN REQUIREMENTS INCREASED THIS SHIFT, PATIENT CURRENTLY ON HIGH-FLOW NASAL CANNULA 60LPM AT 100%. NO NOTED BM DURING THE SHIFT. ALL DUE MEDS GIVEN PER MD ORDER. CHECKED PATIENT ON HOURLY AND PRN BY NURSING STAFF. ALL NEEDS ATTENDED. CALL LIGHT IN REACH.
[2022-01-24] MEDS: ATORVASTATIN 40 MG TABLET PO SCH (21:17)
[2022-01-25] VITALS (24 sets, daily range): BP systolic 81–131; BP diastolic 34–80
[2022-01-25] MEDS: IPRATROPIUM NEB FS 0.5 MG/2.5 ML AMPUL.NEB NEB SCH ×6 (04:17→23:46)
[2022-01-25] MEDS: ALBUTEROL HALF STRENGTH 1.25 MG/3 ML VIAL.NEB NEB SCH ×6 (04:17→23:46)
[2022-01-25 05:05] LABS: CALCIUM, SERUM 9.2 mg/dL (8.5-10.1); CARBON DIOXIDE 37 mmol/L (21-32); CHLORIDE 105 mmol/L (98-107); CREATININE 0.7 mg/dL (0.6-1.3); GLUCOSE 112 mg/dL (74-106); MAGNESIUM 1.7 mg/dL (1.8-2.4); PHOSPHORUS 3.5 mg/dL (2.5-4.9); POTASSIUM 3.6 mmol/L (3.5-5.1); SODIUM SERUM 143 mmol/L (136-145); UREA NITROGEN, BLOOD 12 mg/dL (7-18)
[2022-01-25 05:06] LABS: BASOPHILS % (AUTO) 0.5 % (0.0-2.0); EOSINOPHILS % (AUTO) 1.8 % (0.0-6.0); HEMATOCRIT 24 % (33-45); LYMPHOCYTES # (AUTO) 1.3 K/uL (0.8-4.8); LYMPHOCYTES % (AUTO) 21.4 % (20.0-44.0); MEAN CORPUSCULAR HGB CONC 33 g/dl (31.0-36.0); MEAN CORPUSCULAR VOLUME 100 fL (82-100); MONOCYTES # (AUTO) 0.5 K/uL (0.1-1.30); MONOCYTES % (AUTO) 8.2 % (2.0-12.0); NEUTROPHILS # (AUTO) 4.2 K/uL (1.8-8.9); NEUTROPHILS % (AUTO) 68.1 % (43.0-81.0); PLATELET COUNT (AUTO) 231 K/uL (150-450); RED BLOOD CELL COUNT(AUTO) 2.45 MIL/uL (4.0-5.2); WHITE BLOOD COUNT (AUTO) 6.2 K/uL (4.3-11.0)
[2022-01-25] MEDS: QUETIAPINE FUMARATE 25 MG TABLET PO SCH ×3 (05:16→21:40)
--- NOTE | 2022-01-25 05:49 | NUR ---
PT TAKEN OFF NOC BIPAP AND PLACED ON HFNC. RN NOTIFIED.
--- NOTE | 2022-01-25 07:10 | NUR ---
FORENSIC ANTHROPOLOGIST OPENING NOTE: RECEIVED PT. IN BED, AWAKE, AOX3, NO COMPLAINTS OF PAIN/DISCOMFORT AT THIS TIME. PT. ON HIFL;O O2 VIA NC, 60 L/MIN, FIO2 - 90%. SATURATING AT 95% AT THIS TIME. PRINTED CIRCUIT BOARD ASSEMBLER READS NSR WITH HR OF 83 BPM. PT. ON DIAPER. IV ACCESS ON MONA MIDLINE, ON NS TKO, PATENT WITH NO S/S OF INFILTRATION. IV DRESSING C/D/I. SAFETY MEASURES IN PLACE: BED IN LOWEST AND LOCKED POSITION, HOB ELEVATED AT 30 DEGREES, BED ALARM ON, CALL LIGHT WITHIN REACH. WILL TURN AND REPOSITION AT LEAST Q2H AND WILL CONTINUE TO MONITOR PT. FOR ANY CHANGES.
[2022-01-25] MEDS: CLOTRIMAZOLE 1% 15 GM TUBE TP SCH ×2 (08:57→17:22)
[2022-01-25] MEDS: ASPIRIN 81 MG TAB.CHEW PO SCH (08:58)
[2022-01-25] MEDS: FLUDROCORTISONE 0.1 MG TABLET PO SCH (08:58)
[2022-01-25] MEDS: DOCUSATE SODIUM 100 MG CAPSULE PO SCH ×3 (08:58→17:22)
[2022-01-25] MEDS: DIVALPROEX SODIUM 250 MG TABLET.DR PO SCH (08:58)
[2022-01-25] MEDS: DILTIAZEM HCL CD 300 MG PO SCH (08:58)
[2022-01-25] MEDS: EZETIMIBE 10 MG TABLET PO SCH (08:58)
[2022-01-25] MEDS: PANTOPRAZOLE 40 MG TABLET.DR PO SCH (08:58)
[2022-01-25] MEDS: ARIPIPRAZOLE 5 MG TABLET PO SCH ×2 (08:58→17:22)
[2022-01-25] MEDS: ENOXAPARIN SODIUM 40 MG/0.4 ML DISP.SYRIN SQ SCH (09:01)
[2022-01-25] MEDS ORDERED: MAGNESIUM OXIDE 400 MG TABLET PO ONE (10:00)
[2022-01-25 10:46] LABS: BAND % (MANUAL) 8 % (0.0-5.0); LYMPHOCYTES % (MANUAL) 21 % (16-48); NEUTROPHILS % (MANUAL) 65 (42-76)
[2022-01-25 10:47] LABS: BASOPHILS % (MANUAL) 0 % (0.0-2.0); EOSINOPHILS % (MANUAL) 0 % (0-4); MONOCYTES % (MANUAL) 6 % (0-11.0)
[2022-01-25] MEDS: IV NS 0.9% 250 ML IV PRN (11:45)
[2022-01-25] MEDS: DIVALPROEX SODIUM 500 MG TABLET.DR PO SCH (17:22)
--- NOTE | 2022-01-25 17:57 | NUR ---
SALES REPRESENTATIVENOC TECHNICIAN OF CARE NOTE: TRANSFERRED CARE OF PT TO RALF CHANG RN. REPORT GIVEN AT BEDSIDE. PT. REMAINS IN BED, AWAKE, AOX3, NO COMPLAINTS OF PAIN/DISCOMFORT AT THIS TIME. PT. ON HIFLO O2 VIA NC, 60 L/MIN, FIO2 - 75%. SATURATING AT 91% AT THIS TIME. RN RECOVERY READS NSR WITH HR OF 80 BPM. PT. ON DIAPER, VOIDING YELLOW URINE WELL AND HAD 1 BM SO FAR. IV ACCESS ON MONA MIDLINE, ON NS TKO, PATENT WITH NO S/S OF INFILTRATION. IV DRESSING C/D/I. SAFETY MEASURES MAINTAINED: BED IN LOWEST AND LOCKED POSITION, HOB ELEVATED AT 30 DEGREES, BED ALARM ON, CALL LIGHT WITHIN REACH. TURNED AND REPOSITIONED AT LEAST Q2H. ENDORSED CONTINUITY OF CARE TO RECEIVING NURSE.
[2022-01-25] MEDS: ATORVASTATIN 40 MG TABLET PO SCH (21:40)
--- NOTE | 2022-01-25 23:53 | NUR ---
PT PLACED ON NOC BIPAP.
[2022-01-26] VITALS (27 sets, daily range): BP systolic 85–153; BP diastolic 49–110
[2022-01-26] MEDS: IPRATROPIUM NEB FS 0.5 MG/2.5 ML AMPUL.NEB NEB SCH ×6 (03:23→23:29)
[2022-01-26] MEDS: ALBUTEROL HALF STRENGTH 1.25 MG/3 ML VIAL.NEB NEB SCH ×6 (03:23→23:29)
[2022-01-26] MEDS: QUETIAPINE FUMARATE 25 MG TABLET PO SCH ×3 (05:49→21:59)
--- NOTE | 2022-01-26 05:50 | NUR ---
PT OFF BIPAP AND PLACED ON HFNC 60L, 75%.
--- NOTE | 2022-01-26 07:10 | NUR ---
MEDICAL DONATION PROFESSIONAL OPENING NOTE: RECEIVED PT. IN BED, AWAKE, AOX3, NO COMPLAINTS OF PAIN/DISCOMFORT AT THIS TIME. PT. ON HIFLO O2 VIA NC, 60 L/MIN, FIO2 - 75%. SATURATING AT 95% AT THIS TIME. LITHOGRAPHIC PRESS OPERATOR READS NSR WITH HR OF 72 BPM. PT. ON DIAPER. IV ACCESS ON MONA MIDLINE, ON NS TKO, PATENT WITH NO S/S OF INFILTRATION. IV DRESSING C/D/I. SAFETY MEASURES IN PLACE: BED IN LOWEST AND LOCKED POSITION, HOB ELEVATED AT 30 DEGREES, BED ALARM ON, CALL LIGHT WITHIN REACH. WILL TURN AND REPOSITION AT LEAST Q2H AND WILL CONTINUE TO MONITOR PT. FOR ANY CHANGES.
[2022-01-26] MEDS: PANTOPRAZOLE 40 MG TABLET.DR PO SCH (08:07)
[2022-01-26] MEDS: ARIPIPRAZOLE 5 MG TABLET PO SCH ×2 (08:07→17:28)
[2022-01-26] MEDS: CLOTRIMAZOLE 1% 15 GM TUBE TP SCH ×2 (08:07→17:28)
[2022-01-26] MEDS: EZETIMIBE 10 MG TABLET PO SCH (08:07)
[2022-01-26] MEDS: DILTIAZEM HCL CD 300 MG PO SCH (08:08)
[2022-01-26] MEDS: DOCUSATE SODIUM 100 MG CAPSULE PO SCH ×3 (08:08→17:28)
[2022-01-26] MEDS: ASPIRIN 81 MG TAB.CHEW PO SCH (08:08)
[2022-01-26] MEDS: FLUDROCORTISONE 0.1 MG TABLET PO SCH (08:08)
[2022-01-26] MEDS: DIVALPROEX SODIUM 250 MG TABLET.DR PO SCH (08:08)
[2022-01-26] MEDS: ENOXAPARIN SODIUM 40 MG/0.4 ML DISP.SYRIN SQ SCH (08:09)
[2022-01-26] MEDS: IV NS 0.9% 250 ML IV PRN (08:37)
[2022-01-26] MEDS: DIVALPROEX SODIUM 500 MG TABLET.DR PO SCH (17:28)
--- NOTE | 2022-01-26 19:10 | NUR ---
LABELLING MACHINE OPERATOR CLOSING NOTE: PT. REMAINS IN BED, AWAKE, AOX3, NO COMPLAINTS OF PAIN/DISCOMFORT AT THIS TIME. PT. ON HIFLO O2 VIA NC, 60 L/MIN, FIO2 - 65%. SATURATING AT 91% AT THIS TIME. CLIENT SERVICES COORDINATOR READS NSR WITH HR OF 89 BPM. PT. ON DIAPER, VOIDING YELLOW URINE WELL AND HAD 1 BM THIS SHIFT. IV ACCESS ON MONA MIDLINE, ON NS TKO, PATENT WITH NO S/S OF INFILTRATION. IV DRESSING C/D/I. SAFETY MEASURES MAINTAINED: BED IN LOWEST AND LOCKED POSITION, HOB ELEVATED AT 30 DEGREES, BED ALARM ON, CALL LIGHT WITHIN REACH. TURNED AND REPOSITIONED AT LEAST Q2H. ENDORSED CONTINUITY OF CARE TO COMPANY DOCTOR RN. PLAN IS TO CONTINUE ICU STAY UNTIL FIO2 REQUIREMENTS ARE DOWN TO 50% PER DR. CABEZAS.
--- NOTE | 2022-01-26 21:15 | NUR ---
ICU/HOG COUNTER TIRED TO TURN AND REPOSITION THIS PT WELL CHANGE HER DIAPER, HOWEVER PT'S ABDOMEN IS VERY DISTENDED. OBTAINED AND ORDER FOR VIGIL CATH AND KUB.
[2022-01-26] MEDS: ATORVASTATIN 40 MG TABLET PO SCH (21:59)
--- NOTE | 2022-01-26 23:40 | NUR ---
ICU/HEAD USHER BIPAP PLACED ON PT, SATURATION IS NOT AT 90%. RT CALLED THEN INCREASED THE FIO2. WILL CONTINUE TO MONITOR THIS PT.
[2022-01-27] VITALS (24 sets, daily range): BP systolic 91–133; BP diastolic 34–91
--- NOTE | 2022-01-27 03:08 | NUR ---
ICU/DIRECTOR OF AVIATION PT TOOK OFF BIPAP AND PLACED THE HIGH FLOW ON HER INSTEAD. PT COMPLAINED THAT BIPAP IS HURTING HER FACE.
[2022-01-27] MEDS: IPRATROPIUM NEB FS 0.5 MG/2.5 ML AMPUL.NEB NEB SCH ×5 (03:10→20:22)
[2022-01-27] MEDS: ALBUTEROL HALF STRENGTH 1.25 MG/3 ML VIAL.NEB NEB SCH ×5 (03:10→20:22)
[2022-01-27] MEDS: QUETIAPINE FUMARATE 25 MG TABLET PO SCH ×3 (04:25→21:17)
--- NOTE | 2022-01-27 05:30 | NUR ---
ICU/SWEATBAND CUTTING MACHINE OPERATOR ASKED PT IF OF TO PLACE VIGIL CATH, PT IS HAVING SOME DISTENTION. PT SAID NO. PT WAS TURNED AND REPOSITION, SMALL BM FOUND. PT TO HAVE KUB. AWAIT RESULTS.
--- NOTE | 2022-01-27 07:00 | NUR ---
ICU/INSTRUMENT CHECKER REPORT GIVEN TO DAY NURSE.
--- NOTE | 2022-01-27 07:10 | NUR ---
CIRCULAR SAW EDGE FUSER OPENING NOTE: RECEIVED PT. IN BED, AWAKE, AOX3, NO COMPLAINTS OF PAIN/DISCOMFORT AT THIS TIME. PT. ON HIFLO O2 VIA NC, 60 L/MIN, FIO2 - 65%. SATURATING AT 91% AT THIS TIME. MOTHER REPAIRER READS NSR WITH HR OF 78 BPM. PT. ON DIAPER. CONTROL CLERK AUDITING RN TRIED TO INSERT VIGIL CATH BUT PT. ADAMANTLY REFUSED. WILL TRY TO INSERT VIGIL THIS SHIFT. IV ACCESS ON MONA MIDLINE, ON NS TKO, PATENT WITH NO S/S OF INFILTRATION. IV DRESSING C/D/I. SAFETY MEASURES IN PLACE: BED IN LOWEST AND LOCKED POSITION, HOB ELEVATED AT 30 DEGREES, BED ALARM ON, CALL LIGHT WITHIN REACH. WILL TURN AND REPOSITION AT LEAST Q2H AND WILL CONTINUE TO MONITOR PT. FOR ANY CHANGES.
[2022-01-27] MEDS: DIVALPROEX SODIUM 250 MG TABLET.DR PO SCH (08:05)
[2022-01-27] MEDS: CLOTRIMAZOLE 1% 15 GM TUBE TP SCH ×2 (08:05→17:06)
[2022-01-27] MEDS: EZETIMIBE 10 MG TABLET PO SCH (08:05)
[2022-01-27] MEDS: DILTIAZEM HCL CD 300 MG PO SCH (08:05)
[2022-01-27] MEDS: PANTOPRAZOLE 40 MG TABLET.DR PO SCH (08:06)
[2022-01-27] MEDS: DOCUSATE SODIUM 100 MG CAPSULE PO SCH ×3 (08:06→17:06)
[2022-01-27] MEDS: ARIPIPRAZOLE 5 MG TABLET PO SCH ×2 (08:06→17:06)
[2022-01-27] MEDS: ASPIRIN 81 MG TAB.CHEW PO SCH (08:06)
[2022-01-27] MEDS: FLUDROCORTISONE 0.1 MG TABLET PO SCH (08:06)
[2022-01-27] MEDS: ENOXAPARIN SODIUM 40 MG/0.4 ML DISP.SYRIN SQ SCH (08:07)
[2022-01-27] MEDS: IV NS 0.9% 250 ML IV PRN (08:27)
[2022-01-27] MEDS: DIVALPROEX SODIUM 500 MG TABLET.DR PO SCH (17:06)
--- NOTE | 2022-01-27 19:05 | NUR ---
REHABILITATION DIRECTOR CLOSING NOTE: PT. REMAINS IN BED, AWAKE, AOX3, NO COMPLAINTS OF PAIN/DISCOMFORT AT THIS TIME. PT. NOW UNDER J LUIS STATUS. PT. STILL ON HIFLO O2 VIA NC, 60 L/MIN, FIO2 - 65%. SATURATING AT 89% AT THIS TIME. O2 SAT OF 88-90% IS ACCEPTABLE PER DR. CABEZAS'S ORDER. FELLING MACHINE OPERATOR READS NSR WITH HR OF 90 BPM AT THIS TIME. PT. REFUSED VIGIL INSERTION THIS SHIFT AFTER MULTIPLE ATTEMPTS AND EDUCATION, REMAINS ON DIAPER, VOIDING YELLOW URINE WELL. NO COMPLAINTS OF DYSURIA. NO BM THIS SHIFT. IV ACCESS ON MONA MIDLINE, ON NS TKO, PATENT WITH NO S/S OF INFILTRATION. IV DRESSING C/D/I. SAFETY MEASURES MAINTAINED: BED IN LOWEST AND LOCKED POSITION, HOB ELEVATED AT 30 DEGREES, BED ALARM ON, CALL LIGHT WITHIN REACH. TURNED AND REPOSITIONED AT LEAST Q2H. PT. NOT STABLE ENOUGH FOR PTBianka TURNER TODAY. ENDORSED CONTINUITY OF CARE TO SAND SHOVELER RN.
[2022-01-27] MEDS: ATORVASTATIN 40 MG TABLET PO SCH (21:17)
--- NOTE | 2022-01-27 21:50 | NUR ---
ICU/ASSEMBLER FLUORESCENT LIGHTS PT'S SATURATION HAS BEEN IN THE MID TO UPPER 80'S SINCE START OF SHIFT. RT HAS BEEN IN ROOM, INCREASING THE FIO2 FROM 60'S TO 70'S TO INCREASE THE OXYGENATION. PT WAS CLEAN AND REPOSITIONED AND PULLED UP IN BED TO BRING UP PT'S OXYGENATION. WILL MONITOR THIS PT.
[2022-01-28] VITALS (36 sets, daily range): BP systolic 92–168; BP diastolic 50–98
[2022-01-28] MEDS: IPRATROPIUM NEB FS 0.5 MG/2.5 ML AMPUL.NEB NEB SCH ×7 (00:03→23:55)
[2022-01-28] MEDS: ALBUTEROL HALF STRENGTH 1.25 MG/3 ML VIAL.NEB NEB SCH ×7 (00:03→23:55)
--- NOTE | 2022-01-28 00:30 | NUR ---
ICU/QUALITY PROCESS ENGINEER RT TRIED TO PLACE PT ON BIPAP, HOWEVER PT REFUSED. WILL CONTINUE TO MONITOR THIS PT AND HER SATURATION.
[2022-01-28] MEDS: QUETIAPINE FUMARATE 25 MG TABLET PO SCH ×3 (05:15→21:05)
[2022-01-28] MEDS: IV NS 0.9% 250 ML IV PRN (05:16)
--- NOTE | 2022-01-28 08:00 | NUR ---
RN NOTES RECEIVED PATIENT ON HF SETTING 60L/70%, FIO2-94 % ON BEDSIDE MONITOR. PATIENT SR-90, NO ACUTE RESPIRATORY DISTRESS. VSS, PATIENT REFUSED PAIN. DUE MEDICATION ADMINISTERED. ASSIST TURN AND REPOSTION Q2 HR. PATIENT INCONTINENT USING DIAPER. TKO @10 ML INFUSING MONA MIDLINE INTACT. CALL LIGHT WITHIN TO REACH. WILL FOLLOW UP.
[2022-01-28 08:30] LABS: COHb 0.3 % (0.5-1.5); MetHb 0.2 % (0.0-1.5); SITE, ABG Left Radial
[2022-01-28 08:31] LABS: ABG BASE EXCESS 13.1 mmol/L; ABG OXYGEN SATURATION 90.1 % (92.0-98.5); ABG PCO2 79.8 mmHg (35.0-45.0); ABG PH 7.331 (7.350-7.450); ABG PO2 63.1 mmHg (75.0-100.0); AaDO2 350.2 mmHg; O2Hb 89.6 % (94.0-97.0)
[2022-01-28] MEDS: EZETIMIBE 10 MG TABLET PO SCH (10:48)
[2022-01-28] MEDS: FLUDROCORTISONE 0.1 MG TABLET PO SCH (10:48)
[2022-01-28] MEDS: DOCUSATE SODIUM 100 MG CAPSULE PO SCH ×3 (10:49→17:29)
[2022-01-28] MEDS: DIVALPROEX SODIUM 250 MG TABLET.DR PO SCH (10:49)
[2022-01-28] MEDS: ASPIRIN 81 MG TAB.CHEW PO SCH (10:49)
[2022-01-28] MEDS: PANTOPRAZOLE 40 MG TABLET.DR PO SCH (10:49)
[2022-01-28] MEDS: DILTIAZEM HCL CD 300 MG PO SCH (10:49)
[2022-01-28] MEDS: ARIPIPRAZOLE 5 MG TABLET PO SCH ×2 (10:49→17:29)
[2022-01-28] MEDS: ENOXAPARIN SODIUM 40 MG/0.4 ML DISP.SYRIN SQ SCH (10:51)
[2022-01-28] MEDS: CLOTRIMAZOLE 1% 15 GM TUBE TP SCH ×2 (10:53→17:29)
--- NOTE | 2022-01-28 13:14 | NUR ---
RN NOTES PT WITH THE PATIENT ASSISTING TO GET OUT OF BED, PATIENT SITTING EDGE OF THE BED MUCH TOLERATE. FIO2-92%.
[2022-01-28] MEDS: DIVALPROEX SODIUM 500 MG TABLET.DR PO SCH (17:29)
--- NOTE | 2022-01-28 18:20 | NUR ---
PATIENT ON HFNC 60L , 70% WITH SAT BTW 89-95%. PATIENT IS ALERT AND SOMEHOW ORIENTED. HIGHFLOW CONNNECTED TO RED POWER SOURCE. PATIENT IS STABLE. Addendum: 01/28/22 at 1822 by KRISTIE RICKS RT Amended: Links added.
--- NOTE | 2022-01-28 18:30 | NUR ---
rn notes patient on hf 60/70%, tolerating setting well, due medication administered. vss. pm crea done, assist turn and repostion q 2 hr. endorsed oncoming nurse ciro.
[2022-01-28] MEDS: ATORVASTATIN 40 MG TABLET PO SCH (22:49)
--- NOTE | 2022-01-28 23:45 | NUR ---
ICU/PRODUCT MANAGEMENT INTERN RT PLACED PT ON BIPAP WITH SETTINGS 18/5, RATE 12, FIO2 70%. WILL CONTINUE TO MONITOR THIS PT AND HER SATURATION.
[2022-01-29] VITALS (42 sets, daily range): BP systolic 80–140; BP diastolic 36–92
[2022-01-29] MEDS: ALBUTEROL HALF STRENGTH 1.25 MG/3 ML VIAL.NEB NEB SCH ×6 (02:58→23:38)
[2022-01-29] MEDS: IPRATROPIUM NEB FS 0.5 MG/2.5 ML AMPUL.NEB NEB SCH ×6 (02:58→23:38)
--- NOTE | 2022-01-29 03:00 | NUR ---
ICU/COMPUTER NETWORKING INSTRUCTOR ADJUNCT PT TOOK OFF THE BIPAP, PLACED ON THE HIGH FLOW. WILL CONTINUE TO MONITOR THIS PT AND HER SATURATION.
--- NOTE | 2022-01-29 04:35 | NUR ---
ICU/MOBILE THERAPIST PT WAS PLACED ON THE BIPAP DUE TO LOW SATURATION TO THE 60'S. PULSE OX WAS CHANGED AND THE PT WAS PLACED ON THE BIPAP. WILL CONTINUE TO MONITOR THIS PT AND HER SATURATION. 18/5, RATE 12, 70%FIO2.
[2022-01-29] MEDS: QUETIAPINE FUMARATE 25 MG TABLET PO SCH ×3 (04:56→21:01)
--- NOTE | 2022-01-29 07:55 | NUR ---
rn notes RT WITH THE PATIENT CHANGE BIPA TO TH HF SETTING 60L/80%, ON BEDSIDE MONITOR FIO2-95%. NO ACUTE RESPIRATORY DISTRESS. DUE MEDICATION ADMINISTERED. DUE MEDICATION ADMINISTERED, . PATIENT TOLERATED BREAKFAST 20%. ASSIST TURN AND REPOSTION Q2 HR. PATIENT INCONTINENT USING DIAPER. TKO @10 ML INFUSING MONA MIDLINE INTACT. CALL LIGHT WITHIN TO REACH.
--- NOTE | 2022-01-29 08:06 | NUR ---
PT. IS AWAKE AND ALERTY PLACED INTO HFNC @ 60 L FLOW / 80% FIO2 ORDER DURING THE DAY. BIPAP ON STAND BY @ BEDSIDE Addendum: 01/29/22 at 0808 by LOI WERNER RT Amended: Links added.
[2022-01-29] MEDS: ARIPIPRAZOLE 5 MG TABLET PO SCH ×2 (08:41→17:20)
[2022-01-29] MEDS: PANTOPRAZOLE 40 MG TABLET.DR PO SCH (08:41)
[2022-01-29] MEDS: EZETIMIBE 10 MG TABLET PO SCH (08:41)
[2022-01-29] MEDS: DOCUSATE SODIUM 100 MG CAPSULE PO SCH ×3 (08:41→17:20)
[2022-01-29] MEDS: DILTIAZEM HCL CD 300 MG PO SCH (08:41)
[2022-01-29] MEDS: DIVALPROEX SODIUM 250 MG TABLET.DR PO SCH (08:42)
[2022-01-29] MEDS: ASPIRIN 81 MG TAB.CHEW PO SCH (08:42)
[2022-01-29] MEDS: FLUDROCORTISONE 0.1 MG TABLET PO SCH (08:42)
[2022-01-29] MEDS: CLOTRIMAZOLE 1% 15 GM TUBE TP SCH ×2 (08:43→17:21)
[2022-01-29 09:32] LABS: BASOPHILS % (AUTO) 0.5 % (0.0-2.0); EOSINOPHILS % (AUTO) 2.7 % (0.0-6.0); HEMATOCRIT 27 % (33-45); HEMOGLOBIN 8.6 g/dL (11.5-14.8); LYMPHOCYTES # (AUTO) 1.3 K/uL (0.8-4.8); LYMPHOCYTES % (AUTO) 23.7 % (20.0-44.0); MEAN CORPUSCULAR HGB CONC 33 g/dl (31.0-36.0); MEAN CORPUSCULAR VOLUME 101 fL (82-100); MONOCYTES # (AUTO) 0.4 K/uL (0.1-1.30); MONOCYTES % (AUTO) 8.5 % (2.0-12.0); NEUTROPHILS # (AUTO) 3.4 K/uL (1.8-8.9); NEUTROPHILS % (AUTO) 64.6 % (43.0-81.0); PLATELET COUNT (AUTO) 239 K/uL (150-450); RED BLOOD CELL COUNT(AUTO) 2.64 MIL/uL (4.0-5.2); WHITE BLOOD COUNT (AUTO) 5.3 K/uL (4.3-11.0)
[2022-01-29 09:45] LABS: CALCIUM, SERUM 9.4 mg/dL (8.5-10.1); CREATININE 0.6 mg/dL (0.6-1.3); POTASSIUM 4.2 mmol/L (3.5-5.1)
[2022-01-29] MEDS: ENOXAPARIN SODIUM 40 MG/0.4 ML DISP.SYRIN SQ SCH (09:59)
--- NOTE | 2022-01-29 11:00 | NUR ---
RN NOTES PATIENT OUT OF BED AT THIS TIME WITH ASSIST OF PT, SITTING IN THE CHAIR, STABLE NO SOB , O2-94%.
--- NOTE | 2022-01-29 16:41 | NUR ---
RN NOTES PATIENT DNR/DNI .
[2022-01-29 17:14] LABS: EOSINOPHILS % (MANUAL) 3 % (0-4); LYMPHOCYTES % (MANUAL) 18 % (16-48); MONOCYTES % (MANUAL) 6 % (0-11.0); NEUTROPHILS % (MANUAL) 73 (42-76)
[2022-01-29] MEDS: DIVALPROEX SODIUM 500 MG TABLET.DR PO SCH (17:20)
--- NOTE | 2022-01-29 18:00 | NUR ---
rn notes patient on hr 60l/80%. no acute respiratory distress. due medication administered, pm care done, patient tolerated dinner 25% self. assist turn and reposition q 2 hr. iv infusing tko on zainab intact. call light within to reach. endorsed oncoming nurse follow ciro.
[2022-01-29] MEDS: ATORVASTATIN 40 MG TABLET PO SCH (21:01)
--- NOTE | 2022-01-29 21:55 | NUR ---
WARP DYEING TENDER OPENING NOTE PT RECEIVED IN BED, AWAKE, A&O X3, CALM, COOPERATIVE. PT ON HIGH-FLOW NASAL CANNULA AT 60 L/MIN WITH FIO2 OF 80%; CURRENT O2SAT OF 94%; NO S/S OF RESP DISTRESS, NO SOB OR COUGH, NON-LABORED AND EQUAL BREATHING; APPEARS COMFORTABLE OVERALL. PT ATTACHED TO EXTERNAL MONITOR, SR WITH HR OF 77. MONA MIDLINE INTACT AND PATENT, FLUSHES EASILY WITH NO RESISTANCE; NS TKO AT 10 ML/HR. BED IN LOWEST POSITION, CALL LIGHT WITHIN REACH, SIDE RAILS UP X3. WILL CONTINUE TO MONITOR THROUGHOUT THE NIGHT.
[2022-01-29] MEDS: MIDODRINE HCL (5MG) 5 MG TABLET PO PRN (22:03)
--- NOTE | 2022-01-29 22:03 | NUR ---
RN NOTE PT NOTED TO HAVE BP OF 83/53. PT ADMINISTERED MIDODRINE 10 MG.
--- NOTE | 2022-01-29 23:00 | NUR ---
RN NOTE AFTER ADMINISTERING MIDODRINE, BP 93/51 WITH HR OF 70.
--- NOTE | 2022-01-29 23:52 | NUR ---
RN NOTE PT NOTED TO HAVE BP OF 80/49. NOTIFIED REBEKA JOHNSON, ORDERED FOR SOLUCORTEF 100 MG IV X1. ORDER OBTAINED AND CARRIED OUT.
[2022-01-30] VITALS (45 sets, daily range): BP systolic 85–150; BP diastolic 31–88
[2022-01-30] MEDS ORDERED: HYDROCORTISONE SOD SUCCINATE 100 MG/2 ML VIAL IV ONE
[2022-01-30] MEDS: ALBUTEROL HALF STRENGTH 1.25 MG/3 ML VIAL.NEB NEB SCH ×6 (04:12→23:46)
[2022-01-30] MEDS: IPRATROPIUM NEB FS 0.5 MG/2.5 ML AMPUL.NEB NEB SCH ×6 (04:12→23:46)
[2022-01-30] MEDS: IV NS 0.9% 250 ML IV PRN (04:31)
[2022-01-30] MEDS: QUETIAPINE FUMARATE 25 MG TABLET PO SCH ×3 (05:57→21:36)
--- NOTE | 2022-01-30 06:52 | NUR ---
ADULT CROSSING GUARD CLOSING NOTE PT REMAINS IN BED, AWAKE, A&O X3, CALM, COOPERATIVE. NOCTURNAL BIPAP TAKEN OFF AROUND 06 AND HIGH-FLOW NASAL CANNULA PLACED BACK ON AT 60 LPM WITH FIO2 AT 80%; CURRENT O2SAT OF 91%; NO S/S OF RESP DISTRESS, NO SOB OR COUGH, NON-LABORED AND EQUAL BREATHING; APPEARS COMFORTABLE OVERALL. ATTACHED TO EXTERNAL MONITOR, SR HR OF 81. MONA MIDLINE INTACT AND PATENT, FLUSHES EASILY WITH NO RESISTANCE, NS TKO AT 10 ML/HR. ALL DUE MEDS ADMINISTERED DURING THE NIGHT. BED IN LOWEST POSITION, CALL LIGHT WITHIN REACH, SIDE RAILS UP X3. WILL ENDORSE TO DAYSHIFT NURSE TO CONTINUE CARE.
[2022-01-30] MEDS: DIVALPROEX SODIUM 250 MG TABLET.DR PO SCH (08:27)
[2022-01-30] MEDS: DOCUSATE SODIUM 100 MG CAPSULE PO SCH ×3 (08:27→17:13)
[2022-01-30] MEDS: FLUDROCORTISONE 0.1 MG TABLET PO SCH (08:27)
[2022-01-30] MEDS: ERGOCALCIFEROL (VITAMIN D 2) 50,000 UNIT CAPSULE PO SCH (08:27)
[2022-01-30] MEDS: EZETIMIBE 10 MG TABLET PO SCH (08:28)
[2022-01-30] MEDS: ARIPIPRAZOLE 5 MG TABLET PO SCH ×2 (08:28→17:13)
[2022-01-30] MEDS: PANTOPRAZOLE 40 MG TABLET.DR PO SCH (08:28)
[2022-01-30] MEDS: ASPIRIN 81 MG TAB.CHEW PO SCH (08:29)
[2022-01-30] MEDS: ENOXAPARIN SODIUM 40 MG/0.4 ML DISP.SYRIN SQ SCH (08:30)
[2022-01-30] MEDS: DILTIAZEM HCL CD 300 MG PO SCH (08:31)
[2022-01-30] MEDS: CLOTRIMAZOLE 1% 15 GM TUBE TP SCH ×2 (08:33→17:15)
--- NOTE | 2022-01-30 09:55 | NUR ---
DR CLEMENTE SEEN PATIENT NO ORDER MADE AT THIS TIME
[2022-01-30] MEDS: DIVALPROEX SODIUM 500 MG TABLET.DR PO SCH (17:13)
--- NOTE | 2022-01-30 21:12 | NUR ---
FARM FIELD MANAGER. RECEIVED THE PT REST IN BED. AWAKE, ALERT, FOLLOW COMMANDS. CROSS TIE CUTTER SHOWING NSR, IV RT HAND 20G. HOB ELEVATED. OXYGEN HFNC 85%, 60L. HOB ELEVATED. CROSS TIE CUTTER SHOWING NSR. WILL CONTINUE TO MONITOR VITALS.
[2022-01-30] MEDS: ATORVASTATIN 40 MG TABLET PO SCH (21:36)
[2022-01-31] VITALS (25 sets, daily range): BP systolic 82–142; BP diastolic 45–109
[2022-01-31] MEDS: IV NS 0.9% 250 ML IV PRN ×2 (02:34→19:59)
[2022-01-31 03:27] LABS: BASOPHILS # (AUTO) 0.1 K/uL (0.0-0.2); BASOPHILS % (AUTO) 0.8 % (0.0-2.0); EOSINOPHILS % (AUTO) 0.9 % (0.0-6.0); HEMATOCRIT 24 % (33-45); HEMOGLOBIN 7.9 g/dL (11.5-14.8); LYMPHOCYTES # (AUTO) 1.8 K/uL (0.8-4.8); LYMPHOCYTES % (AUTO) 28.2 % (20.0-44.0); MEAN CORPUSCULAR HGB CONC 32 g/dl (31.0-36.0); MEAN CORPUSCULAR VOLUME 100 fL (82-100); MONOCYTES # (AUTO) 0.6 K/uL (0.1-1.30); MONOCYTES % (AUTO) 9.1 % (2.0-12.0); PLATELET COUNT (AUTO) 158 K/uL (150-450); RED BLOOD CELL COUNT(AUTO) 2.43 MIL/uL (4.0-5.2); WHITE BLOOD COUNT (AUTO) 6.5 K/uL (4.3-11.0)
[2022-01-31 03:39] LABS: CALCIUM, SERUM 9.1 mg/dL (8.5-10.1); CHLORIDE 102 mmol/L (98-107); CREATININE 0.5 mg/dL (0.6-1.3); GLUCOSE 97 mg/dL (74-106); POTASSIUM 3.8 mmol/L (3.5-5.1); SODIUM SERUM 145 mmol/L (136-145); UREA NITROGEN, BLOOD 13 mg/dL (7-18)
[2022-01-31 03:41] LABS: CARBON DIOXIDE 45 mmol/L (21-32)
[2022-01-31] MEDS: IPRATROPIUM NEB FS 0.5 MG/2.5 ML AMPUL.NEB NEB SCH ×6 (03:43→23:29)
[2022-01-31] MEDS: ALBUTEROL HALF STRENGTH 1.25 MG/3 ML VIAL.NEB NEB SCH ×6 (03:43→23:29)
[2022-01-31 04:20] LABS: BAND % (MANUAL) 9 % (0.0-5.0); BASOPHILS % (MANUAL) 0 % (0.0-2.0); EOSINOPHILS % (MANUAL) 0 % (0-4); LYMPHOCYTES % (MANUAL) 19 % (16-48); MONOCYTES % (MANUAL) 4 % (0-11.0); NEUTROPHILS % (MANUAL) 68 (42-76)
[2022-01-31] MEDS: QUETIAPINE FUMARATE 25 MG TABLET PO SCH ×3 (06:02→21:12)
--- NOTE | 2022-01-31 07:05 | NUR ---
ANALYST FOOD AND BEVERAGE OPENING NOTE: RECEIVED PT. IN BED, AWAKE, AOX3, NO COMPLAINTS OF PAIN/DISCOMFORT AT THIS TIME. PT. ON HIFLO O2 VIA NC, 60 L/MIN, FIO2 - 85%. SATURATING AT 91% AT THIS TIME. HOSPITALITY INTERNSHIP READS NSR WITH HR OF 80 BPM. PT. ON DIAPER. IV ACCESS ON MONA MIDLINE, ON NS TKO, PATENT WITH NO S/S OF INFILTRATION. IV DRESSING C/D/I. SAFETY MEASURES IN PLACE: BED IN LOWEST AND LOCKED POSITION, HOB ELEVATED AT 30 DEGREES, BED ALARM ON, CALL LIGHT WITHIN REACH. WILL TURN AND REPOSITION AT LEAST Q2H AND WILL CONTINUE TO MONITOR PT. FOR ANY CHANGES.
--- NOTE | 2022-01-31 07:05 | NUR ---
curriculum coach. am care given. remaining same oxygen tolerated well. sat 98%. no acute distress noted. 2300 t0 0500 bipap on. hob elevated. turn and reposition q2h. will continue to monitor vitals.
[2022-01-31 08:40] LABS: ABG OXYGEN SATURATION 88.2 % (92.0-98.5); ABG PCO2 70.2 mmHg (35.0-45.0); ABG PH 7.425 (7.350-7.450); ABG PO2 56.3 mmHg (75.0-100.0); AaDO2 476.9 mmHg; COHb 0.3 % (0.5-1.5); MetHb 0.3 % (0.0-1.5); O2Hb 87.7 % (94.0-97.0); SITE, ABG Right Radial; VENT MODE, BG HFNC 60L 85%
[2022-01-31] MEDS: DIVALPROEX SODIUM 250 MG TABLET.DR PO SCH (09:34)
[2022-01-31] MEDS: CLOTRIMAZOLE 1% 15 GM TUBE TP SCH ×2 (09:34→17:41)
[2022-01-31] MEDS: EZETIMIBE 10 MG TABLET PO SCH (09:34)
[2022-01-31] MEDS: PANTOPRAZOLE 40 MG TABLET.DR PO SCH (09:35)
[2022-01-31] MEDS: DILTIAZEM HCL CD 300 MG PO SCH (09:35)
[2022-01-31] MEDS: DOCUSATE SODIUM 100 MG CAPSULE PO SCH ×3 (09:35→17:46)
[2022-01-31] MEDS: FLUDROCORTISONE 0.1 MG TABLET PO SCH (09:35)
[2022-01-31] MEDS: ARIPIPRAZOLE 5 MG TABLET PO SCH ×2 (09:35→17:46)
[2022-01-31] MEDS: ASPIRIN 81 MG TAB.CHEW PO SCH (09:35)
[2022-01-31] MEDS: ENOXAPARIN SODIUM 40 MG/0.4 ML DISP.SYRIN SQ SCH (10:05)
--- NOTE | 2022-01-31 10:10 | NUR ---
OIL DELIVERER NOTE: PT.'S H/H TODAY IS 7.9/24 AND PLT IS 158. LOVENOX GIVEN PER DR. CLEMENTE'S ORDER. NO S/S OF BLEEDING NOTED. WILL CONTINUE TO MONITOR FOR S/S OF BLEEDING.
--- NOTE | 2022-01-31 13:30 | NUR ---
GEOSPATIAL INFORMATION SCIENTIST NOTE: PT. REQUESTING A RABBI TO COME VISIT FOR SPIRITUAL GUIDANCE. PT. SAID "I WANT TO HEAR SOME LITERATURE AND MAYBE SOME WORDS OF ADVICE FOR END OF LIFE." FLOWER MAKER CONTACTED.
--- NOTE | 2022-01-31 13:35 | NUR ---
Auto Rental Supervisor SW received a consult request from nurse to assist with a Rabbi visit per pt. request. SW contacted Rabbi Neal Briceño from [facility] ( ). SW informed director and security of the Rabbi visit for pt later today.
--- NOTE | 2022-01-31 16:45 | NUR ---
RN OPENING NOTE RECEIVED PATIENT FROM ICU AT 1645 REPORT GIVEN AT BED SIDE BY ALDRED ICU NURSE. PATIENT IS A/O X3. HIGH FLOW OXYGEN 60 L RATE 12, AND BIPAP AT NIGHT 18/5, RATE 12 FIO2 100%. SKIN IS INTACT. MONA MIDLINE INTACT AND FLUSHING WELL. NS TKO. NO IV MEDICATION, ALL DUE MEDIATION GIVEN PO ON TIME. PATIENT IS ON DIAPER. DNR STATUS; PER BROTHER MICHAEL IN CASE OF PASSING CALL [facility].
--- NOTE | 2022-01-31 16:50 | NUR ---
BRIEF WRITERIT COMMUNICATIONS SPECIALIST NOTE: TRANSFER PT. TO J [facility] ROOM 116 AT 1645. REPORT GIVEN TO ELIGIO HAWLEY AT BEDSIDE. PT. REMAINS IN BED, AWAKE, AOX3, NO COMPLAINTS OF PAIN/DISCOMFORT AT THIS TIME. PT. NOW UNDER J LUIS STATUS. PT. STILL ON HIFLO O2 VIA NC, 60 L/MIN, FIO2 - 85%. SATURATING AT 90% AT THIS TIME. LEAF COVERER READS NSR WITH HR OF 93 BPM AT THIS TIME. PT. REMAINS ON DIAPER, VOIDING YELLOW URINE WELL. NO COMPLAINTS OF DYSURIA. NO BM THIS SHIFT. IV ACCESS ON MONA MIDLINE, ON NS TKO, PATENT WITH NO S/S OF INFILTRATION. IV DRESSING C/D/I. SAFETY MEASURES MAINTAINED: BED IN LOWEST AND LOCKED POSITION, HOB ELEVATED AT 30 DEGREES, BED ALARM ON, CALL LIGHT WITHIN REACH. TURNED AND REPOSITIONED AT LEAST Q2H. PT. REFUSED PT TODAY. BROTHER MICHAEL AND HIS AT BEDSIDE. PT. BELONGINGS, MEDS, AND CHART HANDED OVER AT BEDSIDE TO ELIGIO HAWLEY. ENDORSED CONTINUITY OF CARE.
[2022-01-31] MEDS: DIVALPROEX SODIUM 500 MG TABLET.DR PO SCH (18:39)
--- NOTE | 2022-01-31 19:00 | NUR ---
RN CLOSING NOTE PATIENT AWAKE IN HER BED LIKES TO PAINTING ON PAPER. ALERT AND ORIENTED X3 WITH SOME EPISODES OF CONFUSION. ALL UE MEDS GIVEN ON TIME. HIGH FLOW OXYGEN 60 L RATE 12, AND BIPAP AT NIGHT 18/5, RATE 12 FIO2 100%. SKIN IS INTACT. MONA MIDLINE INTACT AND FLUSHING WELL. NS TKO. NO IV MEDICATION, ALL DUE MEDIATION GIVEN PO ON TIME. PATIENT IS ON DIAPER. DNR STATUS; PER BROTHER MICHAEL IN CASE OF PASSING CALL Quri. ALL SAFETY MEASURES IN PLACE BED AT LOWEST POSITION, CALL LIGHT WITHIN REACH, AND BED ALARM IS ON. WILL ENDORSE THE PATIENT TO THE TELEPHONE DIRECTORY DISTRIBUTOR DRIVER NURSE TO [facility].
[2022-01-31] MEDS: ATORVASTATIN 40 MG TABLET PO SCH (21:12)
--- NOTE | 2022-01-31 23:05 | NUR ---
JOURNEYMAN MECHANIC OPENING NOTE PT RECEIVED IN BED, AWAKE, A&O X3, CALM, COOPERATIVE. PT IS ON HIGH-FLOW NASAL CANNULA AT 50 LPM, WITH CURRENT O2SAT OF 95%; NO S/S OF RESP DISTRESS, NO SOB OR COUGH, NON-LABORED AND EQUAL BREATHING. PT ATTACHED TO EXTERNAL MONITOR, SR WITH HR OF 80. MONA MIDLINE INTACT AND PATENT, FLUSHES EASILY WITH NO RESISTANCE, NS TKO AT 10 ML/HR. BED IN LOWEST POSITION, CALL LIGHT WITHIN REACH, SIDE RAILS UP X3. WILL CONTINUE TO MONITOR THROUGHOUT THE NIGHT.
[2022-02-01] VITALS: BP 91/60
[2022-02-01] MEDS: ALBUTEROL HALF STRENGTH 1.25 MG/3 ML VIAL.NEB NEB SCH ×5 (03:32→19:30)
[2022-02-01] MEDS: IPRATROPIUM NEB FS 0.5 MG/2.5 ML AMPUL.NEB NEB SCH ×5 (03:32→19:30)
--- NOTE | 2022-02-01 03:32 | NUR ---
RT NOTE PT FOUND WITH BIPAP MASK OFF. PT REMOVES BIPAP MASK. PT PLACED ON HIGH FLOW NASAL CANNULA 60 LPM @ 80%. SOCIAL WORK SUPERVISOR DIXON @ BEDSIDE. NO SOB NOTED. WILL CONTINUE TO MONITOR.
[2022-02-01 04:00] VITALS: BP 100/52
[2022-02-01] MEDS: QUETIAPINE FUMARATE 25 MG TABLET PO SCH ×3 (05:30→21:03)
--- NOTE | 2022-02-01 07:20 | NUR ---
RN NOTE RECEIVED PATIENT IN BED RESTING,ALERT ORIENTED X3 VERBALLY RESPONSIVE,ON HIGH FLOW OXYGEN 60L FIO2:80%,O2:84-91% IV SITE IS ON RIGHT UPPER ARM MIDLINE INTACT PATENT,INCONTINENT BOWEL/BLADDER.SAFETY MEASURE IMPLEMENT,BED IN LOW POSITON AND LOCKED,CALL LIGHT WITHIN REACH CONTINUE TO MONITOR.
--- NOTE | 2022-02-01 07:23 | NUR ---
BOAT HOIST OPERATOR HELPER CLOSING NOTE PT REMAINS IN BED, AWAKE, A&O X3, CALM, COOPERATIVE. PT ON HIGH-FLOW NASAL CANNULA 60 LPM, 80% FIO2; O2SAT RANGED FROM 91%-98%; NO S/S OF RESP DISTRESS, NO SOB, NON-LABORED AND EQUAL BREATHING; NOTED TO HAVE NON-PRODUCTIVE COUGH. ATTACHED TO EXTERNAL MONITOR, SR WITH HR IN THE 60S-70S. MONA MIDLINE INTACT AND PATENT, FLUSHES EASILY WITH NO RESISTANCE, NS TKO AT 10 ML/HR. ALL DUE MEDS ADMINISTERED DURING THE NIGHT. BED IN LOWEST POSITION, CALL LIGHT WITHIN REACH, SIDE RAILS UP X3. WILL ENDORSE TO DAYSHIFT NURSE TO CONTINUE CARE.
[2022-02-01 08:00] VITALS: BP 110/65
[2022-02-01] MEDS: FLUDROCORTISONE 0.1 MG TABLET PO SCH (08:30)
[2022-02-01] MEDS: PANTOPRAZOLE 40 MG TABLET.DR PO SCH (08:30)
[2022-02-01] MEDS: EZETIMIBE 10 MG TABLET PO SCH (08:30)
[2022-02-01] MEDS: DOCUSATE SODIUM 100 MG CAPSULE PO SCH ×3 (08:30→16:25)
[2022-02-01] MEDS: DIVALPROEX SODIUM 250 MG TABLET.DR PO SCH (08:30)
[2022-02-01] MEDS: ARIPIPRAZOLE 5 MG TABLET PO SCH ×2 (08:30→16:25)
[2022-02-01] MEDS: ASPIRIN 81 MG TAB.CHEW PO SCH (08:30)
[2022-02-01] MEDS: CLOTRIMAZOLE 1% 15 GM TUBE TP SCH ×2 (08:36→16:31)
[2022-02-01] MEDS: ENOXAPARIN SODIUM 40 MG/0.4 ML DISP.SYRIN SQ SCH (08:44)
[2022-02-01] MEDS: DILTIAZEM HCL CD 300 MG PO SCH (09:16)
[2022-02-01 12:00] VITALS: BP 129/70
[2022-02-01 16:00] VITALS: BP 127/75
[2022-02-01] MEDS ORDERED: acetaZOLAMIDE SODIUM 500 MG/VIAL VIAL IV ONE (16:00)
--- NOTE | 2022-02-01 17:05 | NUR ---
RT NOTE INCREASED O2 TO 90% DUE TO DESATURATION. YESSICA RN NOTIFIED AND AWARE. NO SOB NOTED AT THIS TIME.
[2022-02-01] MEDS: DIVALPROEX SODIUM 500 MG TABLET.DR PO SCH (17:54)
--- NOTE | 2022-02-01 18:39 | NUR ---
RN NOTE PATIENT REMAINS ON ALERT ORIENTED X3 ON HIGH FLOW OXYGEN 60L FIO2:90% O2:88-91% IV SITE IS ON RIGHT UPPER ARM INTACT PATENT,ALL DUE MEDS GIVEN MD ORDERED KEPT CLEAN AND DRY ALL THE TIME,KEPT CALL LIGHT WITHIN REACH,KEPT HEAD OF THE BED ELEVATED,WILL ENDORSE NEXT COMING SHIFT FOR CONTINUATION OF CARE.
--- NOTE | 2022-02-01 19:44 | NUR ---
RT Pt recvd on HFNC 60 lpm 100% FiO2, No SOB or respiratory distress noted at this time. Pt refused Neb tx at this time. I attempted to put on Bipap at this time per MD order but pt refused Bipap. RN informed. SpO2 90% HR 79 RR 18.
[2022-02-01 20:00] VITALS: BP 128/74
[2022-02-01] MEDS: ATORVASTATIN 40 MG TABLET PO SCH (21:03)
--- NOTE | 2022-02-01 21:45 | NUR ---
RT Pt still refuses Bipap at this time. ELIGIO Johns and ELIGIO Jean-Baptiste made aware. RT will try again at 2330.
--- NOTE | 2022-02-01 22:25 | NUR ---
RN NOTE PT STILL REFUSES BIPAP, O2SAT 90%. RT REPORTS OF TRYING AGAIN AT 2300.
--- NOTE | 2022-02-01 22:37 | NUR ---
SUPERVISOR CONDITIONING YARD OPENING NOTE PT RECEIVED IN BED, AWAKE, A&O X3, CALM, COOPERATIVE. PT IS ON HIGH-FLOW NASAL CANNULA AT 60 LPM AND FIO2 OF 90%, WITH CURRENT O2SAT OF 92%; NO S/S OF RESP DISTRESS, NO SOB, NON-LABORED AND EQUAL BREATHING. PT ATTACHED TO EXTERNAL MONITOR, SR WITH HR OF 88. MONA MIDLINE INTACT AND PATENT, FLUSHES EASILY WITH NO RESISTANCE, NS TKO AT 10 ML/HR. BED IN LOWEST POSITION, CALL LIGHT WITHIN REACH, SIDE RAILS UP X3. WILL CONTINUE TO MONITOR THROUGHOUT THE NIGHT.
[2022-02-02] VITALS: BP 139/74
[2022-02-02] MEDS: ALBUTEROL HALF STRENGTH 1.25 MG/3 ML VIAL.NEB NEB SCH ×7 (00:03→23:30)
[2022-02-02] MEDS: IPRATROPIUM NEB FS 0.5 MG/2.5 ML AMPUL.NEB NEB SCH ×7 (00:03→23:30)
--- NOTE | 2022-02-02 01:46 | NUR ---
RT <LATE ENTRY> Changed water to HFNC, pt given neb tx and dorinda well. Tried to get Pt on Bipap at 23:50, Pt still refused. ELIGIO Johns was informed. No SOB or respiratory distress noted at this time.
[2022-02-02 04:00] VITALS: BP 127/74
[2022-02-02] MEDS: QUETIAPINE FUMARATE 25 MG TABLET PO SCH ×3 (05:36→20:54)
--- NOTE | 2022-02-02 06:15 | NUR ---
RT Pt recvd on HFNC 60 lpm 90% FiO2. Checked with patient throughout the night to attempt to place on Bipap but pt refused. loan review manager Shyla and ELIGIO Johns are aware.
--- NOTE | 2022-02-02 06:57 | NUR ---
GROUP SALES COORDINATOR CLOSING NOTE PT REMAINS IN BED, AWAKE, A&O X3, CALM, COOPERATIVE. PT ON HIGH-FLOW NASAL CANNULA 60 LPM, 90% FIO2; PT REFUSED NOCTURNAL BIPAP. O2SAT NOTED TO DROP TO THE 80S; NO S/S OF RESP DISTRESS, NO SOB, NON-LABORED AND EQUAL BREATHING. ATTACHED TO EXTERNAL MONITOR, SR-ST WITH HR RANGING FROM 88-103. MONA MIDLINE INTACT AND PATENT, FLUSHES EASILY WITH NO RESISTANCE. ALL DUE MEDS ADMINISTERED DURING THE NIGHT. BED IN LOWEST POSITION, CALL LIGHT WITHIN REACH, SIDE RAILS UP X3. WILL ENDORSE TO DAYSHIFT NURSE TO CONTINUE CARE.
--- NOTE | 2022-02-02 07:00 | NUR ---
RN NOTE RECEIVED PATIENT IN BED FOUND HER O2:26% SHE REMOVED HIGH FLOW OXYGEN,CALLED CHARGE NURSE,CALLED RT,APPLIED BIPAP,PT DNR/DNI CONTINUE TO MONITOR,
[2022-02-02 08:00] VITALS: BP 139/76
--- NOTE | 2022-02-02 08:15 | NUR ---
0815 Dr. Godwin at bedside and examined patient, updated him on patient condition including episode of desaturation early in the shift with order to change BIPAP settings and do ABG in an hour.
--- NOTE | 2022-02-02 08:27 | NUR ---
[id number] Jesus Alberto REED made aware of Dr. Godwin's order.
[2022-02-02] MEDS: ARIPIPRAZOLE 5 MG TABLET PO SCH ×2 (09:00→16:02)
[2022-02-02] MEDS: DOCUSATE SODIUM 100 MG CAPSULE PO SCH ×3 (09:00→16:02)
[2022-02-02] MEDS: ASPIRIN 81 MG TAB.CHEW PO SCH (09:00)
[2022-02-02] MEDS: EZETIMIBE 10 MG TABLET PO SCH (09:00)
[2022-02-02] MEDS: FLUDROCORTISONE 0.1 MG TABLET PO SCH (09:00)
[2022-02-02] MEDS: PANTOPRAZOLE 40 MG TABLET.DR PO SCH (09:00)
[2022-02-02] MEDS: DIVALPROEX SODIUM 250 MG TABLET.DR PO SCH (09:00)
[2022-02-02] MEDS: DILTIAZEM HCL CD 300 MG PO SCH (09:00)
[2022-02-02] MEDS: ENOXAPARIN SODIUM 40 MG/0.4 ML DISP.SYRIN SQ SCH (09:11)
[2022-02-02] MEDS: CLOTRIMAZOLE 1% 15 GM TUBE TP SCH ×2 (09:13→17:24)
--- NOTE | 2022-02-02 10:00 | NUR ---
telecom analyst note spoke with brother, updated patient condition, notified that now o2 saturation 34-75%, and condition very fragile and guarded, verified about code status stated dnr\ dni, will cont to monitor closely
--- NOTE | 2022-02-02 10:00 | NUR ---
RN NOTE NOT ABLE TO GIVE PO MEDS DUE TO PATIENT CONDITION,CONTINUE TO MONITOR.
[2022-02-02 10:09] LABS: ABG BASE EXCESS 17.9 mmol/L; ABG OXYGEN SATURATION 86.3 % (92.0-98.5); ABG PCO2 134.7 mmHg (35.0-45.0); ABG PH 7.186 (7.350-7.450); ABG PO2 61.9 mmHg (75.0-100.0); AaDO2 516.4 mmHg; COHb 0.2 % (0.5-1.5); MetHb 0.4 % (0.0-1.5); O2Hb 85.8 % (94.0-97.0); SITE, ABG Right Radial; VENT MODE, BG ST 18/10 R20 100%
--- NOTE | 2022-02-02 10:10 | NUR ---
RN NOTE RESULT OF ABG NOTIFIED DR CABEZAS,DR JNESENS REPEAT AFTER 2 HOURS NOTED AND CARRIED OUT.
[2022-02-02 11:42] LABS: BASOPHILS % (AUTO) 0.2 % (0.0-2.0); HEMATOCRIT 26 % (33-45); HEMOGLOBIN 8.2 g/dL (11.5-14.8); MEAN CORPUSCULAR HGB CONC 32 g/dl (31.0-36.0); MONOCYTES # (AUTO) 0.6 K/uL (0.1-1.30); NEUTROPHILS # (AUTO) 9.4 K/uL (1.8-8.9); RED BLOOD CELL COUNT(AUTO) 2.54 MIL/uL (4.0-5.2)
[2022-02-02 11:46] LABS: EOSINOPHILS % (AUTO) 0.4 % (0.0-6.0); LYMPHOCYTES # (AUTO) 0.7 K/uL (0.8-4.8); MEAN CORPUSCULAR VOLUME 101 fL (82-100); NEUTROPHILS % (AUTO) 87.4 % (43.0-81.0); PLATELET COUNT (AUTO) 179 K/uL (150-450); WHITE BLOOD COUNT (AUTO) 10.8 K/uL (4.3-11.0)
[2022-02-02 11:54] LABS: CALCIUM, SERUM 9.6 mg/dL (8.5-10.1); CREATININE 0.7 mg/dL (0.6-1.3); MAGNESIUM 1.8 mg/dL (1.8-2.4); PHOSPHORUS 4.3 mg/dL (2.5-4.9); POTASSIUM 3.7 mmol/L (3.5-5.1)
[2022-02-02 12:00] VITALS: BP 133/81
--- NOTE | 2022-02-02 12:00 | NUR ---
RN NOTE RESULTS OF ABG NOTIFIED DR CABEZAS,CONTINUE TO MONITOR.
[2022-02-02 12:21] LABS: ABG BASE EXCESS 14.5 mmol/L; ABG OXYGEN SATURATION 69.2 % (92.0-98.5); ABG PCO2 93.2 mmHg (35.0-45.0); ABG PO2 38.3 mmHg (75.0-100.0); AaDO2 581.5 mmHg; COHb 0.3 % (0.5-1.5); MetHb 0.3 % (0.0-1.5); O2Hb 68.8 % (94.0-97.0); SITE, ABG Right Radial; VENT MODE, BG BIPAP 25/10 R 12 100%
[2022-02-02 13:12] LABS: BAND % (MANUAL) 2 % (0.0-5.0); LYMPHOCYTES % (MANUAL) 3 % (16-48); MONOCYTES % (MANUAL) 7 % (0-11.0); NEUTROPHILS % (MANUAL) 88 (42-76)
[2022-02-02 16:00] VITALS: BP 134/73
[2022-02-02] MEDS: DIVALPROEX SODIUM 500 MG TABLET.DR PO SCH (17:23)
--- NOTE | 2022-02-02 18:28 | NUR ---
RN NOTE PATIENT REMAINS ALERT ORIENTED X2-3,ON BIPAP O2:79-84% NPO FOR NOW,PREVENT ASPIRATION,NOT PO MEDS GIVEN DUE TO PATIENT CONDITION,IV SITE IS ON RIGHT UPPER ARM MIDLINE INTACT PATENT,KEPT HEAD OF THE BED ELEVATED ALL THE TIME,TURNED AND REPOSITIONED EVERY 2 HOURS,KEPT CLEAN AND DRY ENDORSE NEXT COMING SHIFT FOR CONTINUATION OF CARE.
--- NOTE | 2022-02-02 19:30 | NUR ---
BOARDING HOUSE COOK OPENING NOTE RECEIVED PT IN BED, AWAKE, A/O X 2-3. CURRENTLY ON BIPAP, PT O2 SAT IS BETWEEN 60-70%. NO S/SX OF ACUTE DISTRESS NOTED AT THIS TIME. PT SAID THE BIPAP IS UNCOMFORTABLE. EDUCATED PT IT IS BEST TO KEEP IT ON TO KEEP HER 02 SAT UP. ATTACHED TO EXTERNAL MONITOR, SR WITH HR IN 90s. MONA MIDLINE IS INTACT AND PATENT, FLUSHES EASILY WITH NO RESISTANCE. ALL SAFETY MEASURES IN PLACE: BED IN LOWEST POSITION, CALL LIGHT WITHIN REACH, SIDE RAILS UP X3. WILL CONTINUE TO MONITOR THROUGHOUT THE NIGHT.
--- NOTE | 2022-02-02 19:50 | NUR ---
RN NOTE PT IN NO RESPI DISTRESS ALTHOUGH HER O2 SAT RANGES BETWEEN 60-70 AT THIS TIME. ALL OTHER VS STABLE. EDUCATED PT ABOUT IMPORTANCE OF KEEPING HER BIPAP ON. WILL CONTINUE TO MONITOR PT CLOSELY.
[2022-02-02 20:00] VITALS: BP 128/74
--- NOTE | 2022-02-02 20:54 | NUR ---
RN NOTE PT CURRENTLY ON NPO STATUS. HOLD PO MEDS PER .
[2022-02-02] MEDS: ATORVASTATIN 40 MG TABLET PO SCH (21:37)
--- NOTE | 2022-02-02 23:20 | NUR ---
PT NOTE PT O2 SAT CONTINUES TO DROP AT 30% DESPITE WEARING BIPAP MASK. WILL CONTINUE TO MONITOR.
--- NOTE | 2022-02-02 23:20 | NUR ---
RN NOTES Called to room.Monitor shows HR dropping. Patient on BIPAP. Auscultated unable to appreciate pulse; very pale and unresponsive. Removed BIPAP to check patient, cessation of breathing noted. Primary RN, Elisabeth notified Concepc[place] Clinton marketing communications associate MD. Brother Kunal notified of patient's demise by Elisabeth; also spoke to him and stated will have someone bean picker her belongings in AM. supervisor toy parts former, Reed notified. Elisabeth will call [facility]. All treatment discontinued. MONA Midline removed intact. Post mortem done.
--- NOTE | 2022-02-02 23:30 | NUR ---
RN NOTE PT AT 23:24. FAMILY CALLED AND MADE AWARE. SURVEY COORDINATOR PATY YU NOTIFIED TOO. [facility] CALLED AND MADE AWARE OF PT'S PASSING.
--- NOTE | 2022-02-03 00:10 | NUR ---
RN NOTE POST MORTEM CARE DONE.
--- NOTE | 2022-02-03 01:55 | NUR ---
RN NOTE PT'S BODY PICKED UP BY [employer] AT 0150.
== END 2022-02-03 01:52 | DRG 871 ==
LOC: ER 17:21 → TRANSITION 12-22 01:05 → ICU 12-22 02:17 → TELE1 12-29 18:52 → ICU 01-09 10:44 → TELE-TD 01-15 11:54 → ICUOV 01-17 14:05 → ICU 01-18 09:43 → TELE-TD 01-31 16:49
PROVIDERS: ADMIT Nurse Practitioner Acute Care; ATTEND Internal Medicine
PROC: 5A1D70Z Performance of Urinary Filtration, Intermittent, Less than 6 Hours Per Day (ICD-10-PCS; 2021-12-22)
PROC: 05HB33Z Insertion of Infusion Device into Right Basilic Vein, Percutaneous Approach (ICD-10-PCS; 2021-12-22)
PROC: 06HY33Z Insertion of Infusion Device into Lower Vein, Percutaneous Approach (ICD-10-PCS; 2021-12-22)
PROC: 5A09557 Assistance with Respiratory Ventilation, Greater than 96 Consecutive Hours, Continuous Positive Airway Pressure (ICD-10-PCS; principal; 2022-01-10)
PROC: 05H933Z Insertion of Infusion Device into Right Brachial Vein, Percutaneous Approach (ICD-10-PCS; 2022-01-18)
DX: A41.9 Sepsis, unspecified organism (principal); G92.8 Other toxic encephalopathy; N17.0 Acute kidney failure with tubular necrosis; J96.22 Acute and chronic respiratory failure with hypercapnia; J96.21 Acute and chronic respiratory failure with hypoxia; R65.21 Severe sepsis with septic shock; J15.6 Pneumonia due to other Gram-negative bacteria; E87.1 Hypo-osmolality and hyponatremia; D68.59 Other primary thrombophilia; E27.40 Unspecified adrenocortical insufficiency; E87.0 Hyperosmolality and hypernatremia; B37.49 Other urogenital candidiasis; E87.4 Mixed disorder of acid-base balance; J81.1 Chronic pulmonary edema; J98.11 Atelectasis; E86.0 Dehydration; E87.5 Hyperkalemia; B35.1 Tinea unguium; I10 Essential (primary) hypertension; Z66 Do not resuscitate; Z99.2 Dependence on renal dialysis; Z79.82 Long term (current) use of aspirin; Z79.899 Other long term (current) drug therapy; E78.5 Hyperlipidemia, unspecified; Z74.09 Other reduced mobility; F29 Unspecified psychosis not due to a substance or known physiological condition; M89.8X9 Other specified disorders of bone, unspecified site; E87.6 Hypokalemia; F25.9 Schizoaffective disorder, unspecified; L60.2 Onychogryphosis; T50.1X5A Adverse effect of loop [high-ceiling] diuretics, initial encounter; Z90.49 Acquired absence of other specified parts of digestive tract; Z91.14 Patient's other noncompliance with medication regimen
CPT/HCPCS: 36410; 36415; 36569; 36600; 71045-TC; 74018; 80048-TC; 80076-TC; 81001; 82533; 82565-TC; 82803-TC; 83605-TC; 83735-TC; 84100-TC; 84300-TC; 84520-TC; 85025-TC; 86704; 86705; 86706; 86803; 87040-TC; 87081-TC; 87086-TC; 87340; 90935-TC; 93970-TC; 94660; 94760-TC; 94799-TC; 97112-TC; 97116-TC; 97530-TC; A4216; A4217; A6403; C9113; C9803; G0378; G0480; J0696; J1120; J1644; J1650; J1720; J1940; J2405; J2543; J3475; J3480; J7030; J7050; J7060; P9047